=== PATIENT | female | born 1975 | race Caucasian/White ===

== ENCOUNTER 2020-09-12 13:56 | Outpatient (REF) | payer OTHER, SELFPAY ==
--- NOTE | 2020-09-12 14:04 | MM_ITS ---
EXAMINATION: MM DIAGNOSTIC DIGITAL BREAST TOMOSYNTHESIS, BILATERAL US DIAGNOSTIC ULTRASOUND BREAST, LEFT CLINICAL INFORMATION: Palpable area of concern noted by patient upper left breast. Due for yearly. No known family history breast cancer. The lifetime risk of breast cancer based on the Tyrer-Cuzick Model is 8%. COMPARISON: Mammography: 05/18/2017, 04/10/2016 TECHNIQUE: Digital breast tomosynthesis is performed in both the craniocaudal and mediolateral oblique views along with computer-aided detection (CAD). Synthesized 2D images are generated from the tomosynthesis. Additional views are obtained: Exaggerated left CC, magnification left CC, magnification right CC x2, bilateral magnification ML. Ultrasound left breast is targeted to the area of clinical concern upper breast. Grayscale imaging and color Doppler are performed without and with harmonics. FINDINGS: The breasts are heterogeneously dense, which may obscure small masses (ACR BI-RADS breast composition Category c). There is subtle increased attenuation upper left breast at site of palpable concern corresponding to cyst on subsequent targeted left breast ultrasound today. Neither breast shows architectural abnormality or significant mass. There are some scattered punctate round calcifications upper outer left breast and mid inner right breast. No focal suspicious grouping or ductal distribution or pleomorphic types. Ultrasound left breast demonstrates simple cyst at site of palpable concern 1:00 position 6 cm from nipple measuring 2.0 x 1.8 x 1.4 cm. Cyst is anechoic and shows circumscribed margins and increased through-transmission of sound. No associated color flow. No other cystic or solid mass or architectural abnormality in the targeted area. Results are discussed with the patient at time of visit. MM/MM tomosynthesis diagnostic BI IMPRESSION: 1. Simple cyst 2 cm in greatest dimension corresponding to the site of palpable concern. 2. Benign calcifications upper outer left breast and central inner right breast. ASSESSMENT: BI-RADS 2: Benign RECOMMENDATION: Routine annual mammography screening. This patient's information was entered into a reminder system with a target due date for their next mammogram.
== END 2020-09-12 13:57 | disposition home or self-care (01) ==
LOC: HO.MAMMO 13:56
PROVIDERS: Visit Provider Internal Medicine
DX: N63.20 Unspecified lump in the left breast, unspecified quadrant (principal)
CPT/HCPCS: 76642; 77062; 77066

== ENCOUNTER 2021-09-25 11:17 | Outpatient (REF) | payer MEDICAID, SELFPAY ==
--- NOTE | ~2021-09-25 | MM_ITS ---
EXAMINATION: MM SCREENING DIGITAL BREAST TOMOSYNTHESIS, BILATERAL CLINICAL INFORMATION: Screening. Asymptomatic. The lifetime risk of breast cancer based on the Tyrer-Cuzick Model is 8%. COMPARISON: Mammography: 09/12/2020, 05/18/2017, 04/10/2016; targeted left breast ultrasound 09/12/2020 TECHNIQUE: Digital breast tomosynthesis is performed in both the craniocaudal and mediolateral oblique views along with computer-aided detection (CAD). Synthesized 2D images are generated from the tomosynthesis. FINDINGS: The breasts are heterogeneously dense, which may obscure small masses (ACR BI-RADS breast composition Category c). There are no significant masses, abnormal calcifications, or other abnormalities. The cyst previously noted upper outer quadrant left breast is no longer clearly visible. No developing density. The skin contours are smooth. MM/MM tomosynthesis screening BI IMPRESSION: No mammographic evidence of malignancy. ASSESSMENT: BI-RADS 2: Benign RECOMMENDATION: Routine annual mammography screening. This patient's information was entered into a reminder system with a target due date for their next mammogram.
== END 2021-09-25 11:18 | disposition home or self-care (01) ==
LOC: HO.MAMMO 11:17
PROVIDERS: Visit Provider Internal Medicine
DX: Z12.31 Encounter for screening mammogram for malignant neoplasm of breast (principal)
CPT/HCPCS: 77063; 77067

== ENCOUNTER 2022-10-09 07:55 | Outpatient (REF) | payer MEDICAID, SELFPAY ==
--- NOTE | ~2022-10-09 | MM_ITS ---
EXAMINATION: MM SCREENING DIGITAL BREAST TOMOSYNTHESIS, BILATERAL CLINICAL INFORMATION: Screening. Asymptomatic. The lifetime risk of breast cancer based on the Tyrer-Cuzick Model is 7%. COMPARISON: Mammography: 09/25/2021, 09/12/2020, 05/18/2017; targeted left breast ultrasound 09/12/2020 TECHNIQUE: Digital breast tomosynthesis is performed in both the craniocaudal and mediolateral oblique views along with computer-aided detection (CAD). Synthesized 2D images are generated from the tomosynthesis. FINDINGS: The breasts are heterogeneously dense, which may obscure small masses (ACR BI-RADS breast composition Category c). There are no significant masses, abnormal calcifications, or other abnormalities. Parenchymal pattern is similar to prior exam. The axilla and skin contours are unremarkable. No significant changes. MM/MM tomosynthesis screening BI IMPRESSION: No mammographic evidence of malignancy. ASSESSMENT: BI-RADS 1: Negative RECOMMENDATION: Routine annual mammography screening. This patient's information was entered into a reminder system with a target due date for their next mammogram.
== END 2022-10-09 07:56 | disposition home or self-care (01) ==
LOC: HO.MAMMO 07:55
PROVIDERS: PCP Internal Medicine; Visit Provider Internal Medicine
DX: Z12.31 Encounter for screening mammogram for malignant neoplasm of breast (principal)
CPT/HCPCS: 77063; 77067

== ENCOUNTER 2023-09-16 09:29 | Outpatient (REF) | payer MEDICAID, SELFPAY ==
[2023-09-16 15:37] LABS: Alanine Aminotransferase 24 U/L (0-31); Albumin Level 4.3 g/dL (3.5-5.0); Alkaline Phosphatase 94 U/L (39-117); Anion Gap 13 (12-20); Aspartate Amino Transferase 29 U/L (5-31); Bilirubin Total 0.7 mg/dL (0.0-1.0); Blood Urea Nitrogen 8 mg/dL (9-16); Calcium 10.2 mg/dL (8.4-10.2); Carbon Dioxide 28 mmol/L (22-29); Chloride 104 mmol/L (96-108); Cholesterol 193 mg/dL (<200); Estimated Glomerular Filt Rate > 60; Glucose Random 83 mg/dL (60-115); HDL Cholesterol 47 mg/dL (>40); LDL Cholesterol Calculated 119 mg/dL (<100); Potassium 3.6 mmol/L (3.3-5.1); Sodium 141 mmol/L (135-145); Total Protein 8.1 g/dL (6.5-8.0); Triglycerides 137 mg/dL (<150)
== END 2023-09-16 09:30 | disposition home or self-care (01) ==
LOC: HO.CHCLDS 09:29
PROVIDERS: Visit Provider Internal Medicine
DX: I11.0 Hypertensive heart disease with heart failure (principal)
CPT/HCPCS: 36415; 80053; 80061

== ENCOUNTER 2023-10-15 07:38 | Outpatient (REF) | payer MEDICAID, SELFPAY | END 2023-10-15 07:39 | disposition home or self-care (01) | LOC: HO.MAMMO 07:38 | PROVIDERS: PCP Internal Medicine; Visit Provider Internal Medicine | DX: Z12.31 Encounter for screening mammogram for malignant neoplasm of breast (principal) | CPT/HCPCS: 77063; 77067 ==

== ENCOUNTER → 2023-10-15 07:45 | Outpatient (BNV) | payer MEDICAID, SELFPAY | PROVIDERS: PCP Internal Medicine; Visit Provider Radiology Diagnostic Radiology | DX: Z12.31 Encounter for screening mammogram for malignant neoplasm of breast (principal) | CPT/HCPCS: 77063; 77067 ==

== ENCOUNTER 2024-03-12 16:24 | Outpatient (REF) | payer MEDICAID, SELFPAY ==
[2024-03-12 20:42] LABS: Influenza A PCR POSITIVE (Negative); Influenza B PCR NEGATIVE (Negative); Resp Syncy Virus RNA Qual PCR NEGATIVE (Negative); SARS COV2 PCR INHOUSE NEGATIVE (Negative)
== END 2024-03-12 16:25 | disposition home or self-care (01) ==
LOC: HO.CHCLNP 16:24
PROVIDERS: Visit Provider Family Medicine
DX: R05.9 Cough, unspecified (principal); R52 Pain, unspecified
CPT/HCPCS: 0241U

== ENCOUNTER 2024-07-03 09:44 | Outpatient (REF) | payer MEDICAID, SELFPAY ==
[2024-07-03 14:28] LABS: MANUAL DIFF FLAG NO
[2024-07-03 14:37] LABS: Basophils Percent Auto 0.5 % (0-2); Eosinophils Absolute Auto 0.1 X10*3/uL (0.0-0.4); Eosinophils Percent Auto 1.4 % (0-4); Hematocrit 39.1 % (37.0-47.0); Hemoglobin 13.2 g/dl (12.0-16.0); Imm Gran Abs Auto 0.01 X10*3/uL (0.00-0.03); Imm Gran Pct Auto 0.2 % (0.0-0.4); Lymphocytes Absolute Auto 1.7 X10*3/uL (1.2-4.9); Lymphocytes Percent Auto 40.5 % (20-40); Mean Corpuscular HGB Conc 33.8 g/dl (31.0-35.0); Mean Corpuscular Hemoglobin 30.8 pg (27.0-33.0); Mean Corpuscular Volume 91.1 fL (80.0-98.0); Mean Platelet Volume 10.1 fL (9.4-12.3); Monocytes Absolute Auto 0.4 X10*3/uL (0.1-1.2); Monocytes Percent Auto 9.2 % (2-11); Neutrophils Percent Auto 48.2 % (45-73); Platelet Count 304 X10*3/uL (160-400); Red Blood Count 4.29 X10*6/uL (4.20-5.50); Red Cell Distribution Width 12.6 % (11.0-16.0); White Blood Count 4.2 X10*3/uL (4.8-10.8)
[2024-07-03 14:55] LABS: Anion Gap 13 (12-20); Blood Urea Nitrogen 10 mg/dL (9-16); Calcium 10.6 mg/dL (8.4-10.2); Carbon Dioxide 30 mmol/L (22-29); Chloride 102 mmol/L (96-108); Estimated Glomerular Filt Rate > 60; Glucose Random 83 mg/dL (60-115); Sodium 142 mmol/L (135-145)
[2024-07-03 15:51] LABS: Bacterial Vaginosis PCR POSITIVE (Negative); Candida Group PCR NOT DETECTED (Not Detect); Candida glab krusei PCR NOT DETECTED (Not Detect); Trichomonas vaginalis PCR NOT DETECTED (Not Detect)
== END 2024-07-03 09:45 | disposition home or self-care (01) ==
LOC: HO.CHCLDS 09:44
PROVIDERS: Internal Medicine; Visit Provider Family Medicine
DX: N89.8 Other specified noninflammatory disorders of vagina (principal); R52 Pain, unspecified
CPT/HCPCS: 0352U; 36415; 80048; 84443; 85025

== ENCOUNTER 2024-07-27 08:53 | Outpatient (REF) | payer MEDICAID, SELFPAY ==
[2024-07-27 15:30] LABS: Anion Gap 12 (12-20); Blood Urea Nitrogen 14 mg/dL (9-16); Calcium 10.4 mg/dL (8.4-10.2); Carbon Dioxide 29 mmol/L (22-29); Chloride 106 mmol/L (96-108); Estimated Glomerular Filt Rate > 60; Glucose Random 80 mg/dL (60-115); Magnesium 1.7 mg/dL (1.6-2.6); Potassium 3.4 mmol/L (3.3-5.1); Sodium 144 mmol/L (135-145)
== END 2024-07-27 08:54 | disposition home or self-care (01) ==
LOC: HO.CHCLDS 08:53
PROVIDERS: Visit Provider Family Medicine
DX: E87.6 Hypokalemia (principal)
CPT/HCPCS: 36415; 80048; 83735

== ENCOUNTER 2024-10-20 07:54 | Outpatient (REF) | payer OTHER, SELFPAY ==
--- NOTE | ~2024-10-20 | MM_ITS ---
EXAMINATION: MM SCREENING DIGITAL BREAST TOMOSYNTHESIS, BILATERAL CLINICAL INFORMATION: Screening. Asymptomatic. COMPARISON: Mammography: Comparison is made with available priors TECHNIQUE: Digital breast mammography with tomosynthesis is performed in both the craniocaudal and mediolateral oblique views along with computer-aided detection (CAD). FINDINGS: The breasts are heterogeneously dense, which may obscure small masses (ACR BI-RADS breast composition Category c). There are no significant masses, abnormal calcifications, or other abnormalities. MM/MM tomosynthesis screening BI IMPRESSION: No mammographic evidence of malignancy. ASSESSMENT: BI-RADS BI-RADS 1 - Negative RECOMMENDATION: Routine annual mammography screening. 1 year F/U This examination should not preclude the clinical evaluation of a suspicious palpable abnormality. This patient's information was entered into a reminder system with a target due date for their next mammogram. Electronically signed by: Claudette Blackwell DO 10/25/2024 01:56 PM JONATAN
--- OUTSIDE RECORDS SUMMARY | 2024-10-24 11:39 | XMS_ITS | Continuity of Care Document ---
Author Organization [facility] Address [address] [place] [address] [address] [place] [address] Phone Care Team Providers Care Financial Accounting Manager Name Role Phone Alli CABRAL, BHASKAR, Tushar LEE Unavailable U navailable Procedures Procedure Date Offic Cons New/estab Mod 40 Mi- CT & [place] Surgical Stockings CVR Reveal Thigh High - Duplex Scan-extrem Veins; Comp- CT & [place] Advance Directives Directive Yes / No Effective Date File Name No Information Encounters Encounter Description Practice Location Reason(s) For Visit Diagnoses Date Provider Providers Copied on Encounter [facility], [address] [place] [address] [address], [id number], tel:[phone] [facility] No Information 4 Alli CABRAL RVT, RPVI Robert. [address] [place] [address] [address], [place], [place], [id number] , [place]. tel:[phone] Offic Cons New/estab Mod 40 Mi- CT & [place] [facility], [address] [place] [address] [address] Thomas [address], [id number], [place] tel:[phone] CVR [facility] Chronic venous hypertension (idiopathic) with other complications of bilateral lower extremityEssent ial (primary) hypertensionVen ous insufficiency (chronic) (peripheral)Pru ritus, unspecifiedCram p and spasmLocalized edema 4 Alli CABRAL RVT, RPVI Robert. [address] [facility], [address], [facility] , [place], [id number] , [place]. tel:[phone] Referring Provider: Levy Mantilla MD, Crystal [address], [email or web address], [address]. tel:[phone] [facility], [address] [facility] [address], [place], [id number], [place] tel:[phone] CVR - [place] Varicose veins of bilateral lower extremities with pain 4 Alli CABRAL, RVT, ROSA Finley. [address] [facility], [address], [facility], [place], [id number] , [place]. tel:[phone] Referring Provider: Levy Mantilla MD, Crystal [address], [place], [address]. tel:[phone] Family History Family Member Type Diagnosis Age At Onset No Information Payers Payer name Insurance type Covered libertarian ID Authorlucya marguerite[id number] Social History Type Description Quantity Date Captured Comments Sex Female Smoking Status No Information Chief Complaint And Reason For Visit No Information Reason For Referral Reason For Referral No Information Plan Of Treatment Date Type Action Status Goal Diet education completed Referral Ordered: Weight management: Referral to physician timeframe: 3 Months (related to Body mass index (BMI) 25.0-25.9, adult) ordered Appointment Zo Sawant BOOKED Appointment Zo Sawant BOOKED Appointment Zo Sawant BOOKED Appointment Zo Sawant BOOKED Appointment Zo Sawant BOOKED Appointment Zo Sawant BOOKED Appointment Zo Sawant BOOKED Appointment Zo Sawant BOOKED Appointment Zo Sawant BOOKED History Of Present Illness Encounter Date Complaint History Of Prese nt Illness No Information Functional Status Date Functional Assessmen t No Information Instructions Date Instruction Additional Infor mation Diet education Related to Body mass index (BMI) 25.0-25.9, adult Giving Encouragement to exercise Related to Body mass index (BMI) 25.0-25.9, adult Lifestyle education Related to B arabella mass index (BMI) 25.0-25.9, adult Patient education booklet given Related to Chronic venous hypertension (idiopathic) with other complications of bilateral lower extremity Pre and post instruc tions reviewed and provided Related to Chronic venous hypertension (idiopathic) with other complications of bilateral lower extremity Assessments Type Assessment Date No Information Patient Care Teams Name Effective Dates (start - stop) Status Members No Information
== END 2024-10-20 07:55 | disposition home or self-care (01) ==
LOC: HO.MAMMO 07:54
PROVIDERS: PCP Internal Medicine; Visit Provider Internal Medicine
DX: Z12.31 Encounter for screening mammogram for malignant neoplasm of breast (principal)
CPT/HCPCS: 77063; 77067

== ENCOUNTER → 2024-10-20 08:00 | Outpatient (BNV) | payer SELFPAY | PROVIDERS: PCP Internal Medicine; Visit Provider Internal Medicine | DX: Z12.31 Encounter for screening mammogram for malignant neoplasm of breast (principal) | CPT/HCPCS: 77063; 77067 ==

== ENCOUNTER 2025-01-01 09:34 | Outpatient (REF) | payer OTHER, SELFPAY ==
--- OUTSIDE RECORDS SUMMARY | 2025-01-01 10:19 | XMS_ITS | Encounter Summary ---
Author Organization [employer] Address [address] [place] [address] [address], [place] [address] Care Team Providers Care Employee Service Officer Name Role Phone Everardo Dixon MD Primary Care Prov ider Levy Diallo MD Unavailable [phone] Reason for Referral * Consultation (Routine) - Authorized Specialty Diagnoses / Procedures Referred By Davon quiñonez Referred To Contact Hand Surgery Diagnoses Trigger finger of right thumb Everardo Dixon MD [address] [place] [address] Phone: tel: fax: [facility] [address] [place] [address] Phone: tel: Referral ID Status Reason Start Date Expiration Date Visits Requested Visits Authorized [id number] Authorized Specialty Services Required 12/19/2024 12/19/2025 1 1 Encounter Details Date Type Department Care Team (Late st Contact Info) Description 12/19/2024 2:00 PM EST Office Visit [facility] [address] [place] [address] Everardo Dixon MD [address] [place] [address] Primary hypertension (Primary Dx); Trigger finger of right thumb Social History Tobacco Use Types Packs/Day Years Used Date Smoking Tobacco: Never Smokeless Tobacco: Never Alcohol Use Standard Drinks/Week Comments Never 0 (1 standard drink = 0.6 oz pur e alcohol) Depression Answer Date Recorded Patient Health Questionnaire-9 Score 0 02/11/2023 Housing Stability Answer Date Recorded What is your housing situation today? I have magalie corley 12/12/[address] you li ve. Do you have problems with any of the following? None of the above 12/12/2024 Food Insecurity Answer Date Recorded Within the past 12 months, y ou worried that your food would run out before you got money to buy more: Never True 12/12/2024 Within the past 12 months,th e food you bought just didn't last and you didn't have enough money to get more: Never True Transportation Answer Date Recorded In the past 12 months, has l ack of transportation kept you from medical appts, meetings, work or from getting things needed for daily living? No 12/12/2024 Utilities Answer Date Recorded In the past 12 months, has t he electric, gas, oil or water company threatened to shut off services in your home? No 12/12/2024 Depression Answer Date Recorded Patient Health Questionnaire-2 Score 0 03/06/2024 Internet Access Answer Date Recorded Internet Access Q1 Yes 12/12/2024 Internet Access Q2 Not on file 12/12/2024 Comments Unknown Sex and Gender Information Value Date Recorded Sex Assigned at Female 09/13/2022 10:17 AM EDT Legal Sex Female 10:17 AM EDT Gender Identity Female 09/13/2022 10:17 AM EDT Sexual Orientation Straight 09/13/2022 10 :17 AM EDT documented as of this encounter Last Filed Vital Signs Vital Sign Reading Time Taken Comments Blood Pressure 142/86 12/19/2024 2:22 PM EST Pulse 74 12/19/2024 2:22 PM EST Temperature 36.8 ??C (98.3 ??F) 12/19/2024 2:22 PM ES T Respiratory Rate 20 12/19/2024 2:22 PM EST Oxygen Saturation - - Inhaled Oxygen Concentration - - Weight 63 kg (139 lb) 12/19/2024 2:22 PM EST Height 157.5 cm (5' 2 ) 12/19/2024 2:22 PM EST Body Mass Index 25.42 12/19/2024 2:22 PM EST documented in this encounter Progress Notes * Everardo Devi MD - 12/19/2024 2:00 PM EST Subjective Patient ID: Zo Sawant is a 49 y.o. female who presents for No chief complaint on file.. Hypertension This is a chronic problem. Pertinent negatives include no chest pain, headaches, palpitations, peripheral edema or shortness of breath. Review of Systems Respiratory: Negative for shortness of breath. Cardiovascular: Negative for chest pain and palpitations. Neurological: Negative for headaches. Objective Physical Exam Constitutional: Appearance: Normal appearance. HENT: Right Ear: Tympanic membrane, ear canal and external ear normal. There is no impacted cerumen. Left Ear: Tympanic membrane, ear canal and external ear normal. There is no impacted cerumen. Cardiovascular: Rate and Rhythm: Normal rate and regular rhythm. Heart sounds: No murmur heard. Pulmonary: Effort: Pulmonary effort is normal. No respiratory distress. Breath sounds: No stridor. No wheezing or rhonchi. Abdominal: General: Abdomen is flat. There is no distension. Palpations: There is no mass. Tenderness: There is no abdominal tenderness. Hernia: No hernia is present. Musculoskeletal: General: Normal range of motion. Cervical back: Normal range of motion. No rigidity or tenderness. Lymphadenopathy: Cervical: No cervical adenopathy. Neurological: General: No focal deficit present. Mental Status: She is alert and oriented to person, place, and time. Psychiatric: Mood and Affect: Mood normal. Behavior: Behavior normal. Assessment/Plan Problem List Items Addressed This Visit Primary hypertension - Primary Slightly above target, told to keep bp log, keep low sodium diet, trget <140/90 Other Visit Diagnoses Trigger finger of right thumb Relevant Orders Referral to Hand Surgery documented in this encounter Miscellaneous Notes * Assessment & Plan Note - Everardo Devi MD - 12/19/2024 2:43 PM ESTAssociated Problem(s): Primary hypertension Slightly above target, told to keep bp log, keep low sodium diet, trget <140/90 documented in this encounter Plan of Treatment Upcoming Encounters Date Type Department Care Team (Late st Contact Info) Description 01/16/2025 10:15 AM EST Telemedicine [facility] [address] [place] [address] Everardo Dixon MD [address] [place] [address] Scheduled Orders Name Type Priority Associated Diagnoses Orde r Schedule CBC auto differential Lab Routine Primary hypertension Expected: 12/19/2024 (Approximate), Expires: 12/19/2025 Comprehensive Metabolic Panel Lab Routine Primary hypertension Expected: 12/19/2024 (Approximate), Expires: 12/19/2025 Lipid Panel, Standard Lab Routine Primary hypertension Expected: 12/19/2024 (Approximate), Expires: 12/19/2025 TSH W/Reflex to FT4 Lab Routine Primary hypertension Expected: 12/19/2024 (Approximate), Expires: 12/19/2025 Hemoglobin A1c Lab Routine Primary hypertension Expected: 12/19/2024 (Approximate), Expires: 12/19/2025 Scheduled Referrals Name Type Priority Associated Diagnoses Orde r Schedule Referral to Hand Surgery Outpatient Referral Routine Trigger finger of right thumb Expected: 12/19/2024 (Approximate), Expires: 12/19/2025 documented as of this encounter Visit Diagnoses Diagnosis Primary hypertension- Primary Unspecified essential hypertension Trigger finger of right thumb documented in this encounter Additional Health Concerns Assessment Noted Time PHQ-9 Depression Total Score: 0 02/12/20 23 11:13 AM EDT documented as of this encounter Care Teams Employee Service Officer Relationship Specialty Start Date End Date Everardo Dixon MD [address] [place] [address] PCP - General Internal Medicine 04/13/20 Levy Diallo MD [address] [place] [address] Referring Physician Internal Medicine 07/02/24 documented as of this encounter
--- OUTSIDE RECORDS SUMMARY | 2025-01-01 10:20 | XMS_ITS | Encounter Summary ---
Author Organization [employer] [facility] [employer] [facility] [employer] Address [address] [facility] [address] [place] [address] Care Team Providers Care Veterinary Microbiologist Name Role Phone Everardo Dixon MD Primary Care Prov ider Levy Diallo MD Unavailable [phone] Encounter Details Date Type Department Care Team (Latest Contact Info) Description 12/19/2024 Travel Social History Tobacco Use Types Packs/Day Years Used Date Smoking Tobacco: Never Smokeless Tobacco: Never Alcohol Use Standard Drinks/Week Comments Never 0 (1 standard drink = 0.6 oz pur e alcohol) Depression Answer Date Recorded Patient Health Questionnaire-9 Score 0 02/11/2023 Housing Stability Answer Date Recorded What is your housing situation today? I have magalie jory 12/12/[address] you li [...] AM EDT documented as of this encounter Plan of Treatment Upcoming Encounters Date Type Department Care Team (Late st Contact Info) Description 01/16/2025 10:15 AM EST Telemedicine [facility] [address] [place] [address] Everardo Dixon MD [address] [place] [address] documented as of this encounter Visit Diagnoses Not on filedocumented in this encounter Additional Health Concerns Assessment Noted Time PHQ-9 Depression Total Score: 0 02/12/20 23 11:13 AM EDT documented as of this encounter Care Teams Veterinary Microbiologist Relationship Specialty Start Date End Date Everardo Dixon MD [address] [place] [address] PCP - General Internal Medicine 04/13/20 Levy Diallo MD [address] [place] [address] Referring Physician Internal Medicine 07/02/24 documented as of this encounter
--- OUTSIDE RECORDS SUMMARY | 2025-01-01 10:20 | XMS_ITS | Continuity of Care Document ---
Author Organization [facility] Address [address] [place] [address] Dr [address] [place] [address] Phone Care Team Providers Care Auto Tire Recapper Name Role Phone Alli CABRAL, BHASKAR, Tushar LEE Unavailable U navailable Procedures Procedure Date Offic/outpt E&m Estab 5 Min Trial- Telem edicine CT & [place] Offic Cons New/estab Mod 40 Mi- CT & [place] Surgical Stockings CVR Reveal Thigh High - Duplex Scan-extrem Veins; Comp- CT & [place] Advance Directives Directive Yes / No Effective Date File Name No Information Encounters Encounter Description Practice Location Reason(s) For Visit Diagnoses Date Provider Providers Copied on Encounter Offic/outpt E&m Estab 5 Min Trial- Telemedicine [place] & [place] [facility], [address] [place] [address] Dr [address], [place], [id number], tel:[phone] CVR - [place] [facility] [place] Chronic venous hypertension (idiopathic) with other complications of bilateral lower extremityCram p and spasmPruritus , unspecifiedEs sential (primary) hypertension 5 Alil CABRAL, BHASKAR, ROSA Finley. [address] [facility], [address], [place], [place], [id number] , [place]. tel:[phone] Referring Provider: Everardo Devi, [address] , [place], [address]. tel:[phone] Offic Cons New/estab Mod 40 Mi- CT & [place] [facility], [address] [place] [address] [address], [place], [id number], tel:[phone] [facility] Chronic venous hypertension (idiopathic) with other complications of bilateral lower extremityEsse ntial (primary) hypertensionV enous insufficiency (chronic) (peripheral)P ruritus, unspecifiedCr amp and spasmLocalize d edema 4 Alli CABRAL RVT, ROSA Finley. [address] [place] [address], [place], [place], [id number] , [place]. tel:[phone] Referring Provider: Levy Mantilla MD, Crystal [address], [facility] [place], [address]. tel:[phone] [facility], [address] [place] [address] [address], [place], [id number], tel:[phone] [facility] Varicose veins of bilateral lower extremities with pain 4 Alli CABRAL RVT, ROSA Finley. [address] [place] [address], [place], [place], [id number] , [place]. [phone] Referring Provider: Levy Mantilla MD, Crystal [address], [place], [address]. tel:[phone] Family History Family Member Type Diagnosis Age At Onset No Information Payers Payer name Insurance type Covered green party ID Authorlucya marguerite(s) [facility] [id number] Social History Type Description Quantity Date Captured Comments Alcohol Use Details Unknown Caffeine Use Details Unknown Tobacco Use Status Current non-smoker Smoking Status Never Smoker Non-Smoking Tobacco Use Details : No Details Available : No Details Available Sex Female Vital Signs Date / Time: Height Weight BMI Pulse Rate Blood Pressure Temperature Respiratory Rate Body Surface Area Head Circumference Head Circ. Percentile Wt./Boogie. Percentile BMI percentile Pulse Ox Inhaled Ox 68.040 kg (150.00 lbs) 25.8 0 kg/m eter (2) Chief Complaint And Reason For Visit No Information Reason For Referral Reason For Referral No Information Plan Of Treatment Date Type Action Status Goal Diet education completed Referral Ordered: Weight management: Referral to physician timeframe: 3 Months (related to Body mass index (BMI) 25.0-25.9, adult) ordered Appointment Sawant, Zo BOOKED Appointment Sawant, Zo BOOKED Appointment Sawant, Zo BOOKED Appointment Sawant, Zo BOOKED Appointment Sawant, Zo BOOKED Appointment Sawant, Zo BOOKED Appointment Sawant, Zo BOOKED Appointment Sawant, Zo BOOKED History Of Present Illness Encounter Date Complaint History Of Prese nt Illness No Information Functional Status Date Functional Assessmen t No Information Instructions Date Instruction Additional Infor dolores Patient education booklet given Related to Chronic venous hypertension (idiopathic) with other complications of bilateral lower extremity Pre and post instruc tions reviewed and provided Related to Chronic venous hypertension (idiopathic) with other complications of bilateral lower extremity Diet education Related to Body mass index [...]
--- OUTSIDE RECORDS SUMMARY | 2025-01-01 10:20 | XMS_ITS | Encounter Summary ---
Author Organization [employer] Address [address] [facility] [address] [place] [address] Care Team Providers Care Manager Trust Name Role Phone Everardo Dixon MD Primary Care Prov ider Levy Diallo MD Unavailable [phone] Reason for Visit * Reason Comments Pre-visit Planning SDOH negative, Tobac co screening negative Encounter Details Date Type Department Care Team ([facility] st Contact Info) Description 12/12/2024 Patient Outreach [facility] MED & PEDS [address] [place], [place] [phone] Everardo Dixon MD [address] [place] [address] Pre-visit Planning (SDOH negative, Tobacco screening negative) Social History Tobacco Use Types Packs/Day Years [...] AM EDT documented as of this encounter Progress Notes * Tiffanie Renner - 12/12/2024 3:39 PM EST CC Tiffanie Pulido placed successful outbound call to patient for pre-visit planning. Patient name and confirmed. Patient confirms appt date and time, and has transportation arrangements. Biggest concern for appointment at this time is patient would like to check for menopause. Patient states she's been overly sensitive and having heat flashes. Appropriate screenings completed in anticipation of appointment. documented in this encounter Plan of Treatment Upcoming Encounters Date Type Department Care Team (Late st Contact Info) Description 01/16/2025 10:15 AM EST Telemedicine [facility] MED & PEDS [address] [place] [address] Everardo Dixon MD [address] [place] [address] documented as of this encounter Visit Diagnoses Not on filedocumented in this encounter Additional Health Concerns Assessment Noted Time PHQ-9 Depression Total Score: 0 02/12/20 23 11:13 AM EDT documented as of this encounter Care Teams Manager Trust Relationship Specialty Start Date End Date Everardo Dixon MD [address] [place] [address] PCP - General Internal Medicine 04/13/20 Levy Diallo MD [address] [place], [place] [address]clara [place] [address] Referring Physician Internal Medicine 07/02/24 documented as of this encounter
--- OUTSIDE RECORDS SUMMARY | 2025-01-01 10:20 | XMS_ITS | Clinical Summary ---
Author Organization [facility] ity Address [address] [place] [address] Care Team Providers Care Water Systems Designer Name Role Phone Levy Lema MD Primary Care Provi lola Social History Tobacco Use Types Packs/Day Years Used Date Smoking Tobacco: Never Assessed Comments Unknown Sex and Gender Information Value Date Recorded Sex Assigned at Not on file Legal Sex Female 9:00 AM EST Gender Identity Not on file Sexual Orientation Not on file Plan of Treatment Health Maintenance Due Date Last Done Comments Breast Cancer Screening 1973 DTaP,Tdap,and Td Vaccines (1 - Tdap) 1992 Hepatitis B Vaccines (1 of 3 - 19+ 3-dose series) 1992 Cervical Cancer Screening: P ap Smear 1994 Pneumococcal Vaccine: 50+ Ye ars (1 of 1 - PCV) 2023 Zoster Vaccines (1 of 2) 2023 COVID-19 Vaccine ( - 2023-2 5 season) 2024 Influenza Vaccine (#1) 2024 HIB Vaccines Aged Out No longer eligi ble based on patient's age to complete this topic HPV Vaccines Aged Out No longer eligi ble based on patient's age to complete this topic Hepatitis A Vaccines Aged Out No long er eligible based on patient's age to complete this topic IPV Vaccines Aged Out No longer eligi ble based on patient's age to complete this topic MMR Vaccines Aged Out No longer eligi ble based on patient's age to complete this topic Meningococcal ACWY Vaccine Aged Out N o longer eligible based on patient's age to complete this topic Meningococcal B Vacine Aged Out No lo nger eligible based on patient's age to complete this topic Pneumococcal Vaccine: Pediat rics (0 to 5 Years) and At-Risk Patients (6 to 64 Years) Aged Out No longer eligible b ased on patient's age to complete this topic RSV Immunization Patients Un lola 20 months Aged Out No longer eligible b ased on patient's age to complete this topic Varicella Vaccines Aged Out No longer eligible based on patient's age to complete this topic Care Teams Water Systems Designer Relationship Specialty Start Date End Date Levy Lema MD [address] [place] [address] [facility] [place] [address] PCP - General Internal Medicine 03/09/21
--- OUTSIDE RECORDS SUMMARY | 2025-01-01 10:20 | XMS_ITS | Clinical Summary ---
Author Organization [employer] Address [address] [facility] 7[address] [place] [address] Care Team Providers Care Freelance Writer Name Role Phone Everardo Dixon MD Primary Care Prov ider Levy Diallo MD Unavailable Allergies No known active allergies Medications Blood Pressure kit Active lisinopril-hydroC HLOROthiazide 20-25 MG tabletIndications :Primary hypertension Take 1 tablet by mouth Once per day. 90 tablet 3 03/06/2024 03/06/20 25 Active estradiol (Climara) 0.05 MG/24HR Place 1 patch on the skin 1 (one) time per week. 4 patch 11 07/02/2024 07/02/20 25 Active Active Problems Problem Noted Date Diagnosed Date Vaginal discharge 07/02/2024 Assessment & Plan (07/02/2024 10:58 AM EDT): Will send BV panel, no pelvic pain, no fever/chills Hot flash, menopausal 07/02/2024 Assessment & Plan (07/02/2024 11:01 AM EDT): Will start on estradiol patches, risk vs benefits discussed Cough 03/12/2024 Assessment & Plan (03/12/2024 4:23 PM EDT): Ordering lab work for further evaluation of symptoms. Negative for Flu and Covid. Screening for colon cancer 03/24/2023 Assessment & Plan (03/24/2023 9:36 AM EDT): Done 06/28/22 due in 10 years Annual physical exam 03/24/2023 Gastroesophageal reflux disease without esophagi tis 03/24/2023 Assessment & Plan (03/24/2023 10:13 AM EDT): Will start on omeprazole, lifestyle modification reviewed Mass of axilla 09/12/2014 Primary hypertension 09/12/2014 Assessment & Plan (12/19/2024 2:43 PM EST): Slightly above target, told to keep bp log, keep low sodium diet, trget <140/90 Assessment & Plan (07/02/2024 10:57 AM EDT): Controlled, continue low sodium diet and exercise as tolerated, continue same treatment Assessment & Plan (05/31/2024 8:22 AM EDT): Controlled, continue current treatment, continue low sodium diet and exercise as tolerated, follow up in 4 months Assessment & Plan (09/14/2023 2:27 PM EDT): Controlled, has been ranging below 140/90, reinforced low sodium diet, follow up in 3 months, new labs will be ordered for guidance Assessment & Plan (06/17/2023 9:34 AM EDT): Controlled, patient refers not going above 130/90, encouraged a low sodium diet and exercise as tolerated, labs reviewed, will follow up in 3 months Assessment & Plan (03/24/2023 10:12 AM EDT): Controlled, reinforced low sodium diet and exercise as tolerated, new blood work will be sent Assessment & Plan (10/27/2022 11:51 AM EST): Today patient reported her bp as 130/70, refers is bleow 140/90, reinforced low sodium diet and exercise, continue daily bp monitoring Mental health problem 12/11/2013 Back problem 12/11/2013 Anemia 12/11/2013 Vaginitis 10/03/2012 Encounters Date Type Department Care Team Description 12/19/2024 2:00 PM EST Office Visit [facility] MED & PEDS [address] [place] [address] Everardo Dixon MD Primary hypertension (Primary Dx); Trigger finger of right thumb 12/19/2024 Travel 12/12/2024 Patient Outreach [facility] MED & PEDS [address] [place] [address] Everardo Dixon MD Pre-visit Planning (SDOH negative, Tobacco screening negative) 10/20/2024 Orders Only [facility] MED & PEDS [address] [place] [address] Everardo Dixon MD from Last 3 Months Immunizations Name Administration Dates Next Due Influenza Injectable Quadriv alant Preservative Free IIV4 MDCK 10/02/2020 Influenza injectable quadriv alent IIV4 with preservative 09/22/2015 Influenza injectable quadriv alent preservative free 09/24/2022,08/25/2021,12/04/2019,2016 Influenza, IIV3, injectable 08/22/2014 Influenza, Split (incl. aida fied surface antigen) 09/27/2012 Pfizer Covid-19 Vaccine 12+ rea-sucrose ([place] Cap) 01/02/2022 Tdap 03/24/2023,09/12/2014 Family History Medical History Relation Name Comments Hypertension Mother Relation Name Status Comments Mother Social History Tobacco Use Types Packs/Day Years Used Date Smoking Tobacco: Never Smokeless Tobacco: Never Tobacco Cessation:Counseling Given: Not Answered Alcohol Use Standard Drinks/Week Comments Never 0 (1 standard drink = 0.6 oz pur e alcohol) Depression Answer Date Recorded Patient Health Questionnaire-9 Score 0 02/11/2023 Housing Stability Answer Date Recorded What is your housing situation today? I have magalie sing 12/12/[address] you li [...] Orientation Straight 09/13/2022 10 :17 AM EDT Last Filed Vital Signs Vital Sign Reading Time Taken Comments Blood Pressure 142/86 12/19/2024 2:22 PM EST Pulse 74 12/19/2024 2:22 PM EST Temperature 36.8 ??C (98.3 ??F) 12/19/2024 2:22 PM ES T Respiratory Rate 20 12/19/2024 2:22 PM EST Oxygen Saturation 98% 03/12/2024 3:28 PM EDT Inhaled Oxygen Concentration - - Weight 63 kg (139 lb) 12/19/2024 2:22 PM EST Height 157.5 cm (5' 2 ) 12/19/2024 2:22 PM EST Body Mass Index 25.42 12/19/2024 2:22 PM EST Plan of Treatment Upcoming Encounters Date Type Department Care Team (Late st Contact Info) Description 01/16/2025 10:15 AM EST Telemedicine [facility] MED & PEDS [address] [place] [address] Everardo Dixon MD [address] [place] [address] Health Maintenance Due Date Last Done Comments CT Colonography 1973 FIT DNA/Cologuard 1973 FIT 1973 FOBT 1973 Sigmoidoscopy 1973 Alcohol/Substance Use Screening 1985 Family Planning (PISQ) 1988 Hepatitis B Vaccines (1 of 3 - 19+ 3-dose series) 1992 Pneumococcal Vaccine: 50+ Years (1 of 1 - PCV) 2023 Zoster Vaccines (1 of 2) 2023 COVID-19 Vaccine (3 - season) 2024 01/02/2022, 04/09/2021 Influenza Vaccine (#1) 2024 , 08/25/2021, 10/02/2020, Additional history exists Depression Screening 03/06/2025 03/06/2024, 02/12/20 SDOH Screening 12/12/2025 12/12/2024 Tobacco Screening 12/19/2025 12/19/2024 Cervical Cancer Screening 04/07/2026 HPV/Cotest 04/07/2026 04/07/2021 Pap Smear 04/07/2026 04/07/2021 Mammogram 10/20/2026 10/20/2024, 12/0 12/2022, 10/09/2022, Additional history exists Lipid Panel 09/16/2028 09/16/2023, 0511/2022, 06/04/2022, Additional history exists Colonoscopy 06/28/2032 Colorectal Cancer Screening 06/28/2032 DTaP/Tdap/Td Vaccines (3 - Td or Tdap) 03/24/2033 03/24/2023, 09/12/2014 RSV Patients and Patients Aged 60 years or older (1 - 1-dose 75+ series) 2048 HIV Screening Completed 12/04/2019 Hepatitis C Screening Completed 03/24/2023, 020 HIB Vaccines Aged Out No longer eligi [...] patient's age to complete this topic Meningococcal Vaccine Aged Out No scotty rober eligible based on patient's age to complete this topic RSV under 20 months Aged Out No longe r eligible based on patient's age to complete this topic Rotavirus Vaccines Aged Out No longer eligible based on patient's age to complete this topic Procedures Procedure Name Priority Date/Time Associated Diagnosis Comments BI MAMMOGRAM SCREENING TOMOSYNTHESIS BILATERAL Routine 10/20/2024 7:58 AM EST LIPID PANEL, STANDARD Routine 09/16/2023 9:29 AM EDT Primary hypertension HEPATITIS C AB W/REFL TO HCV RNA, QN, PCR Routine 03/24/2023 9:54 AM EDT Primary hypertension HPV MRNA E6/E7 Routine 04/07/2021 10:38 AM EDT THINPREP PAP Routine 04/07/2021 10:38 AM EDT ZZZ HISTORICAL HIV AB/AG Routine 12/04/2019 2:49 PM EST from Last 3 Months or Most Recently Relevant to Health Maintenance Results * BI Mammogram Screening Tomosynthesis Bilateral (10/20/2024 7:58 AM EST) Anatomical Region Laterality Modality Breast Bilateral Mammography 10/20/2024 7:58 AM EST Narrative 10/25/2024 1:58 PM EST ? [facility] ? [address] ?[place] [address] ? Mammography Report ? Signed ? Patient: Jese,Zo ?MR#: [id number] ? : 1975 ?Acct:[id number] ? Age/Sex: 49 / F ?ADM Date: 12/07/24 ? Loc: HO.MAMMO ? Attending Dr: Everardo Devi MD ? Ordering Physician: Everardo Dixon MD ?Res ?? ults: 1Negative ? Date of Service: 10/20/24 ?Follow Up: 1 Year From Orig ?? inal Mammogram ? Procedure(s): MM tomosynthesis screening BI ?? Accession Number(s): [id number] ? cc: Everardo Dixon MD ? EXAMINATION: ?? MM SCREENING DIGITAL BREAST TOMOSYNTHESIS, BILATERAL ? CLINICAL INFORMATION: ? Screening. Asymptomatic. ? COMPARISON: ?? Mammography: Comparison is made with available priors ? TECHNIQUE: ?? Digital breast mammography with tomosynthesis is performed in both the ?? craniocaudal and mediolateral oblique views along with computer-aided ?? detection (CAD). ? FINDINGS: ?? The breasts are heterogeneously dense, which may obscure small masses ?? (ACR BI-RADS breast composition Category c). ? There are no significant masses, abnormal calcifications, or other ?? abnormalities. ? MM/MM tomosynthesis screening BI ?? IMPRESSION: ?? No mammographic evidence of malignancy. ? ASSESSMENT: ? BI-RADS BI-RADS 1 - Negative ? RECOMMENDATION: ?? Routine annual mammography screening. ? 1 year F/U ? This examination should not preclude the clinical evaluation of a ?? suspicious palpable abnormality. ? This patient's information was entered into a reminder system with a ?? target due date for their next mammogram. ? Electronically signed by: ??Claduette Blackwell DO ??10/25/2024 01:56 PM EST ?? RP ? Dictated By: ?Claudette Blackwell DO ? Signed By: ?<Electronically signed by Claudette Blackwell, DO in OV> ? 10/25/24 1356 ? DD/ 0758 ? TD/TT: 10/20/24 0813 ? Gelatin Plant Supervisor: ? Procedure Note Donotuseinterpreter, Image - 10/26/2024 [facility] [address] [place] [address] Mammography Report Signed Patient: Humza Sawant#: [id number] : 1975Acct:[id number] Age/Sex: 49 / FADM Date: 10/20/24 Loc: HO.MAMMO Attending Dr: Everardo Devi MD Ordering Physician: Everardo Dixon ults: 1Negative Date of Service: 10/20/24Follow Up: 1 Year From Orig inal Mammogram Procedure(s): MM tomosynthesis screening BI Accession Number(s): [id number] cc: Everardo Dixon MD EXAMINATION: MM SCREENING DIGITAL BREAST TOMOSYNTHESIS, BILATERAL CLINICAL INFORMATION: Screening. Asymptomatic. COMPARISON: Mammography: Comparison is made with available priors TECHNIQUE: Digital breast mammography with tomosynthesis is performed in both the craniocaudal and mediolateral oblique views along with computer-aided detection (CAD). FINDINGS: The breasts are heterogeneously dense, which may obscure small masses (ACR BI-RADS breast composition Category c). There are no significant masses, abnormal calcifications, or other abnormalities. MM/MM tomosynthesis screening BI IMPRESSION: No mammographic evidence of malignancy. ASSESSMENT: BI-RADS BI-RADS 1 - Negative RECOMMENDATION: Routine annual mammography screening. 1 year F/U This examination should not preclude the clinical evaluation of a suspicious palpable abnormality. This patient's information was entered into a reminder system with a target due date for their next mammogram. Electronically signed by: Claudette Blackwell DO 10/25/2024 01:56 PM [facility] Dictated By: Claudette Blackwell DO Signed By: <Electronically signed by Claudette Blackwell DO in OV> 10/25/24 1356 DD/ 0758 TD/TT: 10/20/24 0813 Gelatin Plant Supervisor: us Everardo Devi MD IMG BI PROCEDURES Edited Result - Final * (ABNORMAL) Lipid Panel, Standard (09/16/2023 9:29 AM EDT) Triglycerides 137 <150 mg/dL [facility] Comment:Desirable Triglyceri de: less than 150 mg/dLBorderline High Triglyceride 150-199 mg/dLHigh Triglyceride: 200-499 mg/dLVery High Triglyceride: greater than or equal to 5OO mg/dL Cholesterol 193 <200 mg/dL [facility] Comment:Desirable Cholestero l: less than 200 mg/dLBorderline High Cholesterol: 200-239 mg/dLHigh Cholesterol: greater than 239 mg/dL LDL Cholesterol Calculated 119(H) <100 mg/dL [facility] Comment:Desirable LDL: less than 100 mg/dLNear Optimal/Above Optimal LDL: 110- 129 mg/dLBorderline High LDL: 130-159 mg/dLHigh LDL: 160-189 mg/dLVery High LDL: greater than or equal to 190 mg/dL HDL Cholesterol 47 >40 mg/dL [facility] Comment:Desirable HDL: great er than 40 mg/dL Note: This HDL assay may give artificially low results in patients with liver disease. Blood Venous blood specimen / Unknown 09/16/2023 9:29 AM EDT 09/16/2023 2:30 PM EDT us Everardo Devi MD LAB BLOOD ORDERABL ES Final Result [facility] [address] [place] [phone] * Hepatitis C Antibody with Reflex to HCV, RNA, Quantitative, Real-Time PCR (03/24/2023 9:54 AM EDT) Hepatitis C Antibody NON-REACT STEVEN NON-REACT STEVEN [facility] [place] WritePatht Index 0.18 <1.00 [facility] [place] [facility] Comment: HCV antibody was non-reactive. There is no laboratory evidence of HCV infection. In most cases, no further action is required. However, if recent HCV exposure is suspected, a test for HCV RNA (test code 39387) is suggested. For additional information please refer to http://education.quitchen.Phone2Action/faq/NOT01i1 (This link is being provided for informational/ educational purposes only.) Blood Venous blood specimen / Unknown 03/24/2023 9:54 AM EDT 03/24/2023 9:55 AM EDT Narrative [facility] - 03/25/2023 2:47 AM EDT FASTING:YES FASTING: YES Everardo Devi MD LAB BLOOD ORDERABL ES Final Result [facility] [address] [place] [address], [place] [address] [facility] [address] [place] [phone] * THINPREP PAP (04/07/2021 10:38 AM EDT) Clinical Information: None given [facility] COMMENT SEE COMMENT [facility] Comment: EXPLANATORY NOTE: ? The Pap is a screening test for cervical cancer. It is ?? not a diagnostic test and is subject to false negative ?? and false positive results. It is most reliable when a ?? satisfactory sample, regularly obtained, is submitted ?? with relevant clinical findings and history, and when ?? the Pap result is evaluated along with historic and ?? current clinical information. ?? Shank Cutter : SEE COMMENT [facility] Comment: DMM, CT(ASCP) CT screening location: [address] ??[id number] Interpretation/R esult: Negative for intraepithelial lesion or malignancy. [facility] LMP: NONE GIVEN [facility] Prev. BX: NONE GIVEN [facility] Prev. PAP: NONE GIVEN [facility] SOURCE: None given [facility] Statement Of Adequacy: SEE COMMENT [facility] Comment: Satisfactory for evaluation. Endocervical/transformation zone component present. Age and/or menstrual status not provided 04/07/2021 10:3 8 AM EDT us [facility] PATHOLOGY ORDERABLES Final Result Performing Organization Address [facility] de Phone Number [facility] [address] * HPV mRNA E6/E7 (04/07/2021 10:38 AM EDT) Pathologist [facility] HPV nRNA E6/E7 Not Detected Not Detected [facility] Comment: Methodology: Sport Intern-Mediated Amplification This assay detects E6/E7 viral messenger RNA (mRNA) from 14 high-risk HPV types (16,18,31,33,35,39,45,51,52,56,58,59,66,68). ? The analytical performance characteristics of this assay have been determined by [facility]. The modifications have not been cleared or approved by the FDA. This assay has been validated pursuant to the CLIA regulations and is used for clinical purposes. ?? For additional information, please refer to http://education.Vox Media/faq/WVS968u4 (This link if provided for information/ educational purposes only.) 04/07/2021 10:[address] [facility] BLOOD ORDERABLES Charu l Result Performing Organization Address [facility] de Phone Number [facility] [address] * HIV AB/AG (12/04/2019 2:49 PM EST) [facility] HIV AG/AB NONREACTIVE NR [facility] Comment: HIV-1 p24 Ag and/or HIV-1/HIV-2 Ab not detected. ?? A test result that is nonreactive does not exclude the possibility of exposure to or infection with HIV-1 and/or HIV-2. Nonreactive results in this assay for individuals with prior exposure to HIV-1 and/or HIV-2 may be due to antigen and antibody levels that are below the limit of detection of this assay. ?? The [employer]aving Loom Operator HIV Ag/Ab Combo assay result and supplemental assay results should be interpreted in conjunction with the patient's clinical presentation, history and other laboratory results. ??If the results are inconsistent with clinical evidence, additional testing is suggested to confirm the result. 12/04/2019 2:49 PM EST us Historical Provider HISTORICAL/NON ORDERABLE LABS Final Result [facility] [address] from Last 3 Months or Most Recently Relevant to Health Maintenance Insurance [id number] Care Teams Freelance Writer Relationship Specialty Start Date End Date Everardo Dixon MD [address] [place] [phone] PCP - General Internal Medicine 04/13/20 Levy Diallo MD [address] [place] [id number] Referring Physician Internal Medicine 07/02/24
[2025-01-01 14:14] LABS: MANUAL DIFF FLAG NO
[2025-01-01 14:25] LABS: Basophils Percent Auto 0.6 % (0-2); Eosinophils Absolute Auto 0.1 X10*3/uL (0.0-0.4); Eosinophils Percent Auto 1.5 % (0-4); Hematocrit 38.5 % (37.0-47.0); Hemoglobin 12.9 g/dl (12.0-16.0); Imm Gran Abs Auto 0.01 X10*3/uL (0.00-0.03); Imm Gran Pct Auto 0.2 % (0.0-0.4); Lymphocytes Absolute Auto 1.7 X10*3/uL (1.2-4.9); Lymphocytes Percent Auto 35.8 % (20-40); Mean Corpuscular HGB Conc 33.5 g/dl (31.0-35.0); Mean Corpuscular Hemoglobin 30.1 pg (27.0-33.0); Mean Corpuscular Volume 89.7 fL (80.0-98.0); Mean Platelet Volume 10.2 fL (9.4-12.3); Monocytes Absolute Auto 0.4 X10*3/uL (0.1-1.2); Monocytes Percent Auto 8.8 % (2-11); Neutrophils Absolute Auto 2.5 x10*3/uL (2.0-8.3); Neutrophils Percent Auto 53.1 % (45-73); Platelet Count 291 X10*3/uL (160-400); Red Blood Count 4.29 X10*6/uL (4.20-5.50); Red Cell Distribution Width 12.5 % (11.0-16.0); White Blood Count 4.8 X10*3/uL (4.8-10.8)
[2025-01-01 14:43] LABS: Estimated Average Glucose 105 mg/dL; Hemoglobin A1c % 5.3 % (<6.0); Total Hemoglobin (HGBA1C) 3302.8021 umol/L
[2025-01-01 14:49] LABS: Alanine Aminotransferase 20 U/L (0-31); Albumin Level 4.2 g/dL (3.5-5.0); Alkaline Phosphatase 90 U/L (39-117); Anion Gap 12 (12-20); Aspartate Amino Transferase 31 U/L (5-31); Bilirubin Total 1.1 mg/dL (0.0-1.0); Blood Urea Nitrogen 11 mg/dL (9-16); Calcium 10.1 mg/dL (8.4-10.2); Carbon Dioxide 29 mmol/L (22-29); Chloride 107 mmol/L (96-108); Cholesterol 162 mg/dL (<200); Estimated Glomerular Filt Rate > 60; Glucose Random 100 mg/dL (60-115); HDL Cholesterol 51 mg/dL (>40); LDL Cholesterol Calculated 97 mg/dL (<100); Potassium 3.6 mmol/L (3.3-5.1); Sodium 144 mmol/L (135-145); Total Protein 7.9 g/dL (6.5-8.0); Triglycerides 72 mg/dL (<150)
[2025-01-01 15:10] LABS: TSH reflex Free T4 1.58 uIU/mL (0.32-4.0)
== END 2025-01-01 09:35 | disposition home or self-care (01) ==
LOC: HO.CHCLDS 09:34
PROVIDERS: Visit Provider Internal Medicine
DX: I10 Essential (primary) hypertension (principal)
CPT/HCPCS: 36415; 80053; 80061; 83036; 84443; 85025

== ENCOUNTER 2025-01-25 13:11 | Outpatient (AMB) | payer OTHER, SELFPAY ==
--- NOTE | 2025-01-25 13:13 | A.OFFVIS_ITS ---
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 Patient reports her right thumb has been catching and locking since August of 2024. She is right handed and says she uses that hand for all her activities. She has to forcefully use her opposite hand to extend her thumb however this causes pain. She expresses at night is when her symptoms are the worse. She has tried OTC medications and says this offers no relief. Accompanied by: Daughter Allergies No Known Allergies Allergy (Verified 01/25/25 13:16) HPI HPI SPORTS PHYSICAL THERAPIST-trigger finger of right thumb: Details: Zo is a 49 year old right hand dominant female who presents today with her daughter Skyla as a new patient for evaluation of trigger finger of right thumb. Patient reports her right thumb has been catching and locking since August of 2024. She is right handed and says she uses that hand for all her activities. She has to forcefully use her opposite hand to extend her thumb however this causes pain. She expresses at night is when her symptoms are the worse. She has tried OTC medications and says this offers no relief. 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 Neuro: Normal sensation of the tips of all digits of the right hand at this time Vascular: Cap refill brisk Pain: Tenderness to palpation of the A1 laureano of the right thumb No other tenderness to palpation noted There is pain associated with locking and catching of the right thumb ROM: There is a visible and palpable locking and catching of the right thumb Patient is able to flex and extend all other digits of the right hand fully and without difficulty Skin: No lacerations or abrasions. General: No ecchymosis, erythema, or evidence of infection. Psych: Appears grossly normal Affect normal Attitude cooperative Assessment & Plan Assessment & Plan (1) Trigger finger of right thumb: Code(s): M65.311 - Trigger thumb, right thumb Category: Medical Plan 1. Trigger thumb, right thumb I educated the patient about the condition. I discussed both operative and nonoperative treatment options. The patient would like to proceed with surgery. The risks and benefits of operative treatment were discussed with the patient and the patient wishes to proceed with surgery. These risks include, but are not limited to, risk of damage to blood vessels, nerves, tendons, infection, recurrence, incomplete relief of preoperative symptoms, persistent pain, possible need for further surgery, and the risks associated with regional blocks and/or anesthesia. Plan is to take the patient to the operating room at some point in the next few weeks for the following procedures: 1. Right trigger thumb release under local All of the preoperative paperwork including the consent was discussed today. All of the patient's questions were answered in the clinic today. The patient understands that they will be in contact with our hydraulic blocker to discuss scheduling their procedure. Patient denies diabetes, blood thinners, asthma, heart issues, lung issues, kidney issues, or current smoking. Coding Level of Care Code New Pt Level 4 (44142) Diagnoses Trigger finger of right thumb M65.311
--- OUTSIDE RECORDS SUMMARY | 2025-01-25 14:44 | XMS_ITS | Clinical Summary ---
Author Organization [facility] ity Address [address] [place] [address] Care Team Providers Care Oyster Buyer Name Role Phone Levy Lema MD Primary Care [facility] Social History Tobacco Use Types Packs/Day Years [...] Vaccines (1 of 2) 2023 COVID-19 Vaccine (1 - 2023-2 5 season) 2024 Influenza Vaccine [...] age to complete this topic Care Teams Oyster Buyer Relationship Specialty Start Date End Date Levy Lema MD [address] [place] [address] [place] [id number] PCP - General Internal Medicine 03/09/21
--- OUTSIDE RECORDS SUMMARY | 2025-01-25 14:44 | XMS_ITS | Encounter Summary ---
Author Organization [employer] Address [address] [facility] [address], [place] [address] Care Team Providers Care Padded Box Sewer Name Role Phone Everardo Dixon MD Primary Care Prov ider Levy Diallo MD Unavailable [phone] Reason for Visit * Reason Onset Date Comments chart prep 01/15/2025 Encounter Details Date Type Department Care Team ([facility] st Contact Info) Description 01/15/2025 Telephone [facility] MED & PEDS [address] [place], [place] [phone] Everardo Dixon MD [address] [place] [address] chart prep Social History Tobacco Use Types Packs/Day Years [...] AM EDT documented as of this encounter Miscellaneous Notes * Telephone Encounter - Joceline Mantilla MA - 01/15/2025 4:05 PM EST Chart Prep Labs: done Images: done Vaccines due: yes Referrals: pending appt Screenings: done Overdue care gaps: Sbirt documented in this encounter Plan of Treatment Upcoming Encounters Date Type Department Care Team (Late st Contact Info) Description 04/18/2025 11:30 AM EDT Telemedicine [facility] MED & PEDS [address] [place] [address] Everardo Dixon MD [address] [place] [address] documented as of this encounter Visit Diagnoses Not on filedocumented in this encounter Additional Health Concerns Assessment Noted Time PHQ-9 Depression Total Score: 0 02/12/20 23 11:13 AM EDT documented as of this encounter Care Teams Padded Box Sewer Relationship Specialty Start Date End Date Everardo Dixon MD [address] [place] [address] PCP - General Internal Medicine 04/13/20 Levy Diallo MD [address] [place] [id number] Referring Physician Internal Medicine 07/02/24 documented as of this encounter
--- OUTSIDE RECORDS SUMMARY | 2025-01-25 14:44 | XMS_ITS | Encounter Summary ---
Author Organization [employer] Address [address] [facility] [address] [place] [address] Care Team Providers Care Aircraft De Icer Installer Name Role Phone Everardo Dixon MD Primary Care Prov ider Levy Diallo MD Unavailable [phone] Encounter Details Date Type Department Care Team ([facility] st Contact Info) Description 01/16/2025 10:15 AM EST Telemedicine [facility] MED & PEDS [address] [place], [place] [phone] Everardo Dixon MD [address] [place] [address] Primary hypertension Social History Tobacco Use Types Packs/Day Years [...] Sign Reading Time Taken Comments Blood Pressure 144/88 01/16/2025 10:15 AM EST Pulse - - Temperature - - Respiratory Rate - - Oxygen Saturation - - Inhaled Oxygen Concentration - - Weight - - Height - - Body Mass Index - - documented in this encounter Progress Notes * Everardo Devi MD - 01/16/2025 10:15 AM EST Subjective Patient ID: Zo Sawant is a 49 y.o. female who presents for No chief complaint on file.. Hypertension This is a chronic problem. The problem is controlled. Pertinent negatives include no chest pain, headaches, palpitations, peripheral edema or shortness of breath. Review of Systems Respiratory: Negative for shortness of breath. Cardiovascular: Negative for chest pain and palpitations. Neurological: Negative for headaches. Objective Physical Exam Neurological: General: No focal deficit present. Mental Status: She is oriented to person, place, and time. Psychiatric: Mood and Affect: Mood normal. Behavior: Behavior normal. Assessment/Plan Problem List Items Addressed This Visit Primary hypertension Slightly above target, she refers has remained below 140/90, encouraged to keep low sodium diet andexercise as tolerated, call back if bp >140/90 20% of the time Relevant Medications lisinopril-hydroCHLOROthiazide 20-25 MG tablet documented in this encounter Miscellaneous Notes * Assessment & Plan Note - Everardo Devi MD - 01/16/2025 10:43 AM ESTAssociated Problem(s): Primary hypertension Slightly above target, she refers has remained below 140/90, encouraged to keep low sodium diet andexercise as tolerated, call back if bp >140/90 20% of the time documented in this encounter Plan of Treatment Upcoming Encounters Date Type Department Care Team (Late st Contact Info) Description 04/18/2025 11:30 AM EDT Telemedicine [facility] MED & PEDS [address] [place] [address] Everardo Dixon MD [address] [place] [address] documented as of this encounter Visit Diagnoses Diagnosis Primary hypertension Unspecified essential hypertension documented in this encounter Additional Health Concerns Assessment Noted Time PHQ-9 Depression Total Score: 0 02/12/20 23 11:13 AM EDT documented as of this encounter Care Teams Aircraft De Icer Installer Relationship Specialty Start Date End Date Everardo Dixon MD [address] [place] [address] PCP - General Internal Medicine 04/13/20 Levy Diallo MD [address] [place] [id number] Referring Physician Internal Medicine 07/02/24 documented as of this encounter
--- OUTSIDE RECORDS SUMMARY | 2025-01-25 14:44 | XMS_ITS | Encounter Summary ---
Author Organization [employer] Address [address] [facility] [address] [place] [address] Care Team Providers Care Shoe Treer Name Role Phone Everardo Dixon MD Primary Care Prov ider Levy Diallo MD Unavailable [phone] Encounter Details Date Type Department Care Team (Latest Contact Info) Description 01/16/2025 Travel Social History Tobacco Use Types Packs/Day [...] Info) Description 04/18/2025 11:30 AM EDT Telemedicine [facility] MED & PEDS [address] [place] [address] Everardo Dixon MD [address] [place] [address] documented as of this encounter Visit Diagnoses Not on filedocumented in this encounter Additional Health Concerns Assessment Noted Time PHQ-9 Depression Total Score: 0 02/12/20 23 11:13 AM EDT documented as of this encounter Care Teams Shoe Treer Relationship Specialty Start Date End Date Everardo Dixon MD [address] [place] [address] PCP - General Internal Medicine 04/13/20 Levy Diallo MD [address] [place] [address] Referring Physician Internal Medicine 07/02/24 documented as of this encounter
--- OUTSIDE RECORDS SUMMARY | 2025-01-25 14:44 | XMS_ITS | Clinical Summary ---
Author Organization [employer] Address [address] [facility] [address] [place] [address] Care Team Providers Care Automobile Mechanic Motor Name Role Phone Everardo Dixon MD Primary Care Prov ider Levy Diallo MD Unavailable [phone] Allergies No known active allergies Medications Blood Pressure kit Active estradiol (Climara) 0.05 MG/24HR Place 1 patch on the skin 1 (one) time per week. 4 patch 11 07/02/20 24 025 Active lisinopril-hydro CHLOROthiazide 20-25 MG tabletIndication s:Primary hypertension Take 1 tablet by mouth Once per day. 90 tablet 3 01/17/20 25 026 Active lisinopril-hydro CHLOROthiazide 20-25 MG tabletIndication s:Primary hypertension Take 1 tablet by mouth Once per day. 90 tablet 3 03/06/20 24 025 Discontinued(Re order (will not trigger notification to Pharmacy)) Active Problems Problem Noted Date Diagnosed Date [...] 09/12/2014 Primary hypertension 09/12/2014 Assessment & Plan (01/16/2025 10:43 AM EST): Slightly above target, she refers has remained below 140/90, encouraged to keep low sodium diet and exercise as tolerated, call back if bp >140/90 20% of the time Assessment & Plan (12/19/2024 2:43 PM EST): [...] Encounters Date Type Department Care Team Description 01/16/2025 10:15 AM EST Telemedicine [facility] [address] [place] [phone] Everardo Dixon MD Primary hypertension 01/16/2025 Travel 01/15/2025 Telephone [facility] [address] [place] [address] Everardo Dixon MD chart prep 12/19/2024 2:00 PM EST Office Visit [facility] [address] [place] [address] Everardo Dixon MD Primary hypertension (Primary Dx); Trigger finger of right thumb 12/19/2024 Travel 12/12/2024 Patient Outreach [facility] [address] [place] [address] Everardo Dixon MD Pre-visit Planning (SDOH negative, Tobacco screening negative) from Last 3 Months Immunizations Name Administration [...] Pressure 144/88 01/16/2025 10:15 AM EST Pulse 74 12/19/2024 2:22 PM EST [...] Upcoming Encounters Date Type Department Care Team ([facility] st Contact Info) Description 04/18/2025 11:30 AM EDT Telemedicine [facility] [address] [place] [address] Everardo Dixon MD [address] [place] [address] Health Maintenance Due Date Last Done Comments CT Colonography 1973 FIT DNA/Cologuard 1975 FIT 1975 FOBT 1975 Sigmoidoscopy 1975 Family Planning (PISQ) 1988 Hepatitis B Vaccines (1 of 3 - 19+ 3-dose series) 1992 Pneumococcal Vaccine: 50+ Years (1 of 1 - PCV) 2023 Zoster Vaccines (1 of 2) 2023 COVID-19 Vaccine (3 - season) 2024 01/02/2022, 04/09/2021 Influenza Vaccine (#1) 2024 , 08/25/2021, 10/02/2020, Additional history exists Depression Screening 03/06/2025 03/06/2024, 02/12/20 23 SDOH Screening 12/12/2025 12/12/2024 Tobacco Screening 12/19/2025 12/19/2024 Alcohol/Substance Use Screening 01/16/2026 01/16/2025 Cervical Cancer Screening 04/07/2026 HPV/Cotest 04/07/2026 04/07/2021 Pap Smear 04/07/2026 04/07/2021 Mammogram 10/20/2026 10/20/2024, 12/2022, 10/09/2022, Additional history exists Lipid Panel 01/01/2030 01/01/2025, 01/2023, 03/24/2023, Additional history exists Colonoscopy 06/28/2032 Colorectal Cancer [...] Procedure Name Priority Date/Time Associated Diagnosis Comments HEMOGLOBIN A1C Routine 01/01/2025 9:35 AM EST Primary hypertension TSH W/REFLEX TO FT4 Routine 01/01/2025 9 :35 AM EST Primary hypertension LIPID PANEL, STANDARD Routine 01/01/2025 9:35 AM EST Primary hypertension COMPREHENSIVE METABOLIC PANEL Routine 01/01/2025 9:35 AM EST Primary hypertension CBC WITH AUTO DIFFERENTIAL Routine 01/01/2025 9:35 AM EST Primary hypertension BI MAMMOGRAM SCREENING TOMOSYNTHESIS BILATERAL Routine 10/20/2024 7:58 AM EST HEPATITIS C AB W/REFL TO HCV RNA, QN, PCR Routine 03/24/2023 9:54 AM EDT Primary hypertension HPV MRNA E6/E7 Routine 04/07/2021 10:38 AM EDT THINPREP PAP Routine 04/07/2021 10:38 AM EDT ZZZ HISTORICAL HIV AB/AG Routine 12/04/2019 2:49 PM EST from Last 3 Months or Most Recently Relevant to Health Maintenance Results * TSH W/Reflex to FT4 (01/01/2025 9:35 AM EST) Pathologist [facility] TSH reflex Free T4 1.58 0.32 - 4.0 uIU/mL [facility] Blood Venous blood specimen / Unknown 01/01/2025 9:35 AM EST 01/01/2025 2:14 PM EST us Everardo Devi MD LAB BLOOD ORDERABL ES Final Result [facility] [address] [place] [phone] [phone] * CBC auto differential (01/01/2025 9:35 AM EST) Pathologist [facility] White Blood Count 4.8 4.8 - 10.8 X10*3/uL [facility] Red Blood Count 4.29 4.20 - 5.50 X10*6/uL [facility] Hemoglobin 12.9 12.0 - 16.0 g/dl [facility] Hematocrit 38.5 37.0 - 47.0 % [facility] Mean Corpuscular Volume 89.7 80.0 - 98.0 fL [facility] Mean Corpuscular Hemoglobin 30.1 27.0 - 33.0 pg [facility] Mean Corpuscular HGB Conc 33.5 31.0 - 35.0 g/dl [facility] Red Cell Distribution Width 12.5 11.0 - 16.0 % [facility] Platelet Count 291 160 - 400 X10*3/uL [facility] Mean Platelet Volume 10.2 9.4 - 12.3 fL [facility] Neutrophils Percent Auto 53.1 45 - 73 % [facility] Imm Gran Pct Auto 0.2 0.0 - 0.4 % [facility] Lymphocytes Percent Auto 35.8 20 - 40 % [facility] Monocytes Percent Auto 8.8 2 - 11 % [facility] Eosinophils Percent Auto 1.5 0 - 4 % [facility] Basophils Percent Auto 0.6 0 - 2 % [facility] NRBC Pct Auto 0.0 0.0 - 0.2 /100WBC [facility] Neutrophils Absolute Auto 2.5 2.0 - 8.3 x10*3/uL [facility] Imm Gran Abs Auto 0.01 0.00 - 0.03 X10*3/uL [facility] Lymphocytes Absolute Auto 1.7 1.2 - 4.9 X10*3/uL [facility] Monocytes Absolute Auto 0.4 0.1 - 1.2 X10*3/uL [facility] Eosinophils Absolute Auto 0.1 0.0 - 0.4 X10*3/uL [facility] Basophils Absolute Auto 0.0 0.0 - 0.2 X10*3/uL [facility] NRBC Abs Auto 0.000 0.0 - 0.012 X10*3/uL [facility] Blood Venous blood specimen / Unknown 01/01/2025 9:35 AM EST 01/01/2025 2:12 PM EST us Everardo Devi MD LAB BLOOD ORDERABL ES Final Result [facility] [address] [place] [phone] * Hemoglobin A1c (01/01/2025 9:35 AM EST) Hemoglobin A1c 5.3 <6.0 % [facility] Comment:Hemoglobin A1C Refer ence Range Adults: 4.8 - 6.0 % Non diabetic: < 6.0 % Goal: < 7.0 %Additional Action Suggested: > 8.0 %Note: Hemoglobin A1c results are invalid for patients with abnormal amounts of HbF. Blood transfusions may impact the HbA1c concentration in the patient sample. Estimated Average Glucose 105 mg/dL [facility] Comment:eAG = Estimated ave rage glucose which is %A1C expressed asaverage glucose, using the formula of the B5K-VwobmraKqlrfex Glucose study (ADAG), Diabetes Care, Vol.31,#8,Jun. 2007 Blood Venous blood specimen / Unknown 01/01/2025 9:35 AM EST 01/01/2025 2:12 PM EST us Everardo Devi MD LAB BLOOD ORDERABL ES Final Result Performing Organization Address [facility] Co de Phone Number [facility] [address] [place] [phone] * Lipid Panel, Standard (01/01/2025 9:35 AM EST) Triglycerides 72 <150 mg/dL [facility] Comment:Desirable Triglyceri de: less than 150 mg/dLBorderline High Triglyceride 150-199 mg/dLHigh Triglyceride: 200-499 mg/dLVery High Triglyceride: greater than or equal to 5OO mg/dL Cholesterol 162 <200 mg/dL [facility] Comment:Desirable Cholestero l: less than 200 mg/dLBorderline High Cholesterol: 200-239 mg/dLHigh Cholesterol: greater than 239 mg/dL LDL Cholesterol Calculated 97 <100 mg/dL [facility] Comment:Desirable LDL: less than 100 mg/dLNear Optimal/Above Optimal LDL: 110- 129 mg/dLBorderline High LDL: 130-159 mg/dLHigh LDL: 160-189 mg/dLVery High LDL: greater than or equal to 190 mg/dL HDL Cholesterol 51 >40 mg/dL [facility] Comment:Desirable HDL: great er than 40 mg/dL Note: This HDL assay may give artificially low results in patients with liver disease. Blood Venous blood specimen / Unknown 01/01/2025 9:35 AM EST 01/01/2025 2:14 PM EST us Everardo Devi MD LAB BLOOD ORDERABL ES Final Result Performing Organization Address [facility]/ZIP Co de Phone Number [facility] [address] [place] [phone] * (ABNORMAL) Comprehensive Metabolic Panel (01/01/2025 9:35 AM EST) Sodium 144 135 - 145 mmol/L [facility] Potassium 3.6 3.3 - 5.1 mmol/L [facility] Chloride 107 96 - 108 mmol/L [facility] Carbon Dioxide 29 22 - 29 mmol/L [facility] Anion Gap 12 12 - 20 [facility] Urea Nitrogen (BUN) 11 9 - 16 mg/dL [facility] Creatinine, Serum 0.71 0.5 - 1.4 mg/dL [facility] Estimated Glomerular Filt Rate >60 [facility] Comment:Chronic Kidney Disea se: Estimated GFR < 60 mL/min/1.44n6Dcbvne Kidney Disease: Estimated GFR < 15 mL/min/1.73m2 Glucose 100 60 - 115 mg/dL [facility] Calcium 10.1 8.4 - 10.2 mg/dL [facility] Bilirubin, Total 1.1(H) 0.0 - 1.0 mg/dL [facility] Aspartate Amino Transferase 31 5 - 31 U/L [facility] Alanine Aminotransferase 20 0 - 31 U/L [facility] Total Protein 7.9 6.5 - 8.0 g/dL [facility] Albumin Level 4.2 3.5 - 5.0 g/dL [facility] Alkaline Phosphatase 90 39 - 117 U/L [facility] Blood Venous blood specimen / Unknown 01/01/2025 9:35 AM EST 01/01/2025 2:14 PM EST us Everardo Devi MD LAB BLOOD ORDERABL ES Final Result [facility] [address] [place] [phone] * BI Mammogram Screening Tomosynthesis Bilateral (10/20/2024 7:58 AM EST) Anatomical Region Laterality Modality Breast Bilateral Mammography 10/20/2024 7:58 AM EST Narrative 10/25/2024 1:58 PM EST ? [place] [facility] ? [address] ?[place] [address] ? Mammography Report ? Signed ? Patient: Sawant,Zo ?MR#: [id number] ? : 1975 ?Acct:[id number] ? Age/Sex: 49 / F ?ADM Date: 10/20/24 ? Loc: HO.MAMMO ? Attending Dr: Everardo Devi MD ? Ordering Physician: Everardo Dixon MD ?Res ?? ults: 1Negative ? Date of Service: 10/20/24 ?Follow Up: 1 Year From Orig ?? inal Mammogram ? Procedure(s): MM tomosynthesis screening BI ?? Accession Number(s): [id number] ? cc: Everardo Dixon MD ? EXAMINATION: [...] their next mammogram. ? Electronically signed by: ??Claudette Blackwell DO ??10/25/2024 01:56 PM EST ? Dictated By: ?Claudette Blackwell DO ? Signed By: ?<Electronically signed by Claudette Blackwell, DO in OV> ? 10/25/24 [id number] ? DD/ 0758 ? TD/TT: 10/20/24 0813 ? Compliance Advisor: ? Procedure Note Salvadornancy, Image - 10/26/2024 [place] [facility] [address] [place] [address] Mammography Report Signed Patient: Humza Sawant#: [id number] : 1975Acct:[id number] Age/Sex: 49 / FADM Date: 10/20/24 Loc: HO.MAMMO Attending Dr: Everardo Devi MD Ordering Physician: Everardo Dixon ults: 1Negative Date of Service: 10/20/24Follow Up: 1 Year From Orig inal Mammogram Procedure(s): MM tomosynthesis screening BI Accession Number(s): [id number] cc: Everardo Dixon MD EXAMINATION: MM SCREENING [...] by: Claudette Blackwell DO 10/25/2024 01:56 PM EST Dictated By: Claudette Blackwell DO Signed By: <Electronically signed by Claudette Blackwell DO in OV> 10/25/24 1356 DD/ 0758 TD/TT: 10/20/24 0813 Compliance Advisor: Everardo Devi MD IM BI PROCEDURES Edited Result - Final * Hepatitis C Antibody with Reflex to HCV, RNA, Quantitative, Real-Time PCR (03/24/2023 9:54 AM EDT) Hepatitis C Antibody NON-REACT STEVEN NON-REACT STEVEN [facility] Index 0.18 <1.00 [facility] Comment: HCV antibody was non-reactive. There is no laboratory evidence of HCV infection. In most cases, no further action is required. However, if recent HCV exposure is suspected, a test for HCV RNA (test code 05303) is suggested. For additional information please refer to http://education.[employer]Ment[employer]/faq/OJV72h7 (This link is being provided for informational/ educational purposes only.) Blood Venous blood specimen / Unknown 03/24/2023 9:54 AM EDT 03/24/2023 9:55 AM EDT Narrative [facility] - 03/25/2023 2:47 AM EDT FASTING:YES FASTING: YES Everardo Devi MD LAB BLOOD ORDERABL ES Final Result [facility] [address], [place] [address] [facility] [address] [place] [address] * THINPREP PAP (04/07/2021 10:38 AM EDT) [...] historic and ?? current clinical information. ?? Baton Twirler : SEE COMMENT [facility] Comment: DMM, CT(ASCP) CT screening location: [address] ??[phone] Interpretation/R esult: Negative for intraepithelial lesion or malignancy. [facility] LMP: NONE GIVEN [facility] Prev. BX: NONE GIVEN [facility] Prev. PAP: NONE [facility]IVEN [facility] SOURCE: None given [facility] Statement Of Adequacy: SEE COMMENT [facility] Comment: Satisfactory for evaluation. Endocervical/transformation zone component present. Age and/or menstrual status not provided 04/07/2021 10:3 8 AM EDT Dea [facility] PATHOLOGY ORDERABLES Final Result [facility] [address] * HPV mRNA E6/E7 (04/07/2021 10:38 AM EDT) HPV nRNA E6/E7 Not Detected Not Detected [facility] Comment: Methodology: Rinkman-Mediated Amplification This assay detects E6/E7 viral messenger RNA (mRNA) from 14 high-risk HPV types (16,18,31,33,35,39,45,51,52,56,58,59,66,68). ? The analytical performance characteristics of this assay have been determined by [facility]. The modifications have not been cleared or approved by the FDA. This assay has been validated pursuant to the CLIA regulations and is used for clinical purposes. ?? For additional information, please refer to http://education.[employer]Mentors/faq/EPE751t3 (This link if provided for information/ educational purposes only.) 04/07/2021 10:3 8 AM EDT Dea Hurley [facility] LAB BLOOD ORDERABLES Charu l Result Performing Organization Address [facility] Phone Number [facility] [address] * HIV AB/AG (12/04/2019 2:49 PM EST) [facility] HIV AG/AB NONREACTIVE NR [facility] [...] detection of this assay. ?? The [employer] HIV Ag/Ab Combo assay result and supplemental assay results should be interpreted in conjunction with the patient's clinical presentation, history and other laboratory results. ??If the results are inconsistent with clinical evidence, additional testing is suggested to confirm the result. 12/04/2019 2:49 PM EST Historical Provider MD HISTORICAL/NON ORDERABLE LABS Final Result Performing Organization Address [facility] Phone Number [facility] [address] from Last 3 Months or Most Recently Relevant to Health Maintenance Insurance [id number] [place] [address] HEALTH PLAN [facility] CARE OPTIONS HMO SNP Care Teams Automobile Mechanic Motor Relationship Specialty Start Date End Date Everardo Dixon MD [address] [place] [phone] PCP - General Internal Medicine 04/13/20 Levy Diallo MD [address] [place] [phone] Referring Physician Internal Medicine 07/02/24
== END 2025-01-25 13:47 | disposition home or self-care (01) ==
LOC: HO.HOS 13:12
PROVIDERS: PCP Internal Medicine
DX: M65.311 Trigger thumb, right thumb (principal)
CPT/HCPCS: 99204

== ENCOUNTER → 2025-01-25 13:11 | Outpatient (BNVA) | payer OTHER, SELFPAY | PROVIDERS: PCP Internal Medicine | DX: M65.311 Trigger thumb, right thumb (principal) | CPT/HCPCS: 99202 ==

== ENCOUNTER 2025-03-05 09:09 | Day surgery (SDC) | payer OTHER, SELFPAY ==
--- OUTSIDE RECORDS SUMMARY | 2025-02-19 14:45 | XMS_ITS | Encounter Summary ---
Author Organization [employer] Address [address] [facility] [address] [place] [address] Care Team Providers Care Foster Care Worker Name Role Phone Everardo Dixon MD Primary Care Prov ider Levy Diallo MD Unavailable +- [phone] Encounter Details Date Type Department Care Team (Late st Contact Info) Description 02/13/2025 Orders Only [place] [facility] [address] [place], [place] [phone] Provider, MD Tonya Social History Tobacco Use Types Packs/Day Years [...] Info) Description 04/18/2025 11:30 AM EDT Telemedicine [facility] [address] [place], [place] [phone] Everardo Dixon MD [address] [place] [address] documented as of this encounter Procedures Procedure Name Priority Date/Time Associated Diagnosis Comments VASC US LOWER EXTREMITY VENOUS DUPLEX LEFT Routine 02/12/2025 10:53 AM EDT documented in this encounter Results * VASC US LOWER EXTREMITY VENOUS DUPLEX LEFT (02/12/2025 10:53 AM EDT) us Historical Provider CV VASCULAR PROCEDURES Fi nal Result documented in this encounter Visit Diagnoses Not on filedocumented in this encounter Additional Health Concerns Assessment Noted Time PHQ-9 Depression Total Score: 0 02/12/20 23 11:13 AM EDT documented as of this encounter Care Teams Foster Care Worker Relationship Specialty Start Date End Date Everardo Dixon MD [address] [place] [address] PCP - General Internal Medicine 04/13/20 Levy Diallo MD [address] [place] [address] Referring Physician Internal Medicine 07/02/24 documented as of this encounter
--- OUTSIDE RECORDS SUMMARY | 2025-02-19 14:45 | XMS_ITS | Clinical Summary ---
Author Organization [employer] Address [address] [facility] 7[address] [place] [address] Care Team Providers Care Residential Mortgage Underwriter Name Role Phone Everardo Dixon MD Primary Care Prov ider Levy Diallo MD Unavailable [phone]- [phone] Allergies No known active allergies Medications Blood Pressure kit Active estradiol (Climara) 0.05 MG/24HR Place 1 patch on the skin 1 (one) time per week. 4 patch 11 07/02/2024 07/02/20 25 Active lisinopril-hydroC HLOROthiazide 20-25 MG tabletIndications :Primary hypertension Take 1 tablet by mouth Once per day. 90 tablet 3 01/16/2025 01/17/20 26 Active Active Problems Problem Noted Date Diagnosed [...] Encounters Date Type Department Care Team Description 02/18/2025 Telephone [facility] [address] [facility] [place] [address] Everardo Dixon MD 02/13/2025 Orders Only [facility] [address] [facility] [place] [address] ProviderTonya MD 01/16/2025 10:15 AM EST Telemedicine [facility] [address] [place] [address] Everardo Dixon MD Primary hypertension 01/16/2025 Travel 01/15/2025 Telephone [facility] [address] [place] [address] Everardo Dixon MD chart prep 12/19/2024 2:00 PM EST Office Visit [facility] [address] [place] [address] Everardo Dixon MD Primary hypertension (Primary Dx); Trigger finger of right thumb 12/19/2024 Travel 12/12/2024 Patient Outreach [facility] [address] [place] [address] Everardo Dixon MD Pre-visit Planning (SDOH negative, [...] Upcoming Encounters Date Type Department Care Team ([facility] st Contact Info) Description 04/18/2025 11:30 AM EDT Telemedicine [facility] [address] [place] [address] Everardo Dixon MD [address] [place] [address] Health Maintenance Due Date Last Done Comments [...] DUPLEX LEFT Routine 02/12/2025 10:53 AM EDT HEMOGLOBIN A1C Routine 01/01/2025 9:35 AM EST [...] Recently Relevant to Health Maintenance Results * VASC US LOWER EXTREMITY VENOUS DUPLEX LEFT (02/12/2025 10:53 AM EDT) Historical Provider CV VASCULAR PROCEDURES Fi nal Result * TSH W/Reflex to FT4 (01/01/2025 9:35 AM EST) TSH reflex Free T4 1.58 0.32 - 4.0 uIU/mL [facility] Blood Venous blood specimen / Unknown 01/01/2025 9:35 AM EST 01/01/2025 2:14 PM EST Everardo Devi MD LAB BLOOD ORDERABL ES Final Result [facility] [address] [place] [address] [phone] * CBC auto differential (01/01/2025 9:35 AM EST) White Blood Count 4.8 4.8 - 10.8 X10*3/uL [facility] Red Blood Count 4.29 4.20 - 5.50 X10*6/uL [facility] Hemoglobin 12.9 12.0 - 16.0 g/dl [facility] Hematocrit 38.5 37.0 - 47.0 % [facility] Mean Corpuscular Volume 89.7 80.0 - 98.0 fL [facility] Mean Corpuscular Hemoglobin 30.1 27.0 - 33.0 pg [facility] Mean Corpuscular HGB Conc 33.5 31.0 - 35.0 g/dl [facility] Red Cell Distribution Width 12.5 11.0 - 16.0 % [facility] Platelet Count 291 160 - 400 X10*3/uL [facility] Mean Platelet Volume 10.2 9.4 - 12.3 fL [facility] Neutrophils Percent Auto 53.1 45 - 73 % [facility] Imm Gran Pct Auto 0.2 0.0 - 0.4 % [facility] Lymphocytes Percent Auto 35.8 20 - 40 % [facility] Monocytes Percent Auto 8.8 2 - 11 % [facility] Eosinophils Percent Auto 1.5 0 - 4 % [facility] Basophils Percent Auto 0.6 0 - 2 % [facility] NRBC Pct Auto 0.0 0.0 - 0.2 /100WBC [facility] Neutrophils Absolute Auto 2.5 2.0 - 8.3 x10*3/uL [facility] Imm Gran Abs Auto 0.01 0.00 - 0.03 X10*3/uL [facility] Lymphocytes Absolute Auto 1.7 1.2 - 4.9 X10*3/uL [facility] Monocytes Absolute Auto 0.4 0.1 - 1.2 X10*3/uL [facility] Eosinophils Absolute Auto 0.1 0.0 - 0.4 X10*3/uL [facility] Basophils Absolute Auto 0.0 0.0 - 0.2 X10*3/uL [facility] NRBC Abs Auto 0.000 0.0 - 0.012 X10*3/uL [facility] Blood Venous blood specimen / Unknown 01/01/2025 9:35 AM EST 01/01/2025 2:12 PM EST us Everardo Devi MD LAB BLOOD ORDERABL ES Final Result [facility] [address] [place] [phone] * Hemoglobin A1c (01/01/2025 9:35 AM EST) Hemoglobin A1c 5.3 <6.0 % [facility] Comment:Hemoglobin A1C Refer ence Range Adults: 4.8 - 6.0 % Non diabetic: < 6.0 % Goal: < 7.0 %Additional Action Suggested: > 8.0 %Note: Hemoglobin A1c results are invalid for patients with abnormal amounts of HbF. Blood transfusions may impact the HbA1c concentration in the patient sample. Estimated Average Glucose 105 mg/dL [facility] Comment:eAG = Estimated ave rage glucose which is %A1C expressed asaverage glucose, using the formula of the D9I-XbwqlkeIcarvjz Glucose study (ADAG), Diabetes Care, Vol.31,#8,2007 Blood Venous blood specimen / Unknown 01/01/2025 9:35 AM EST 01/01/2025 2:12 PM EST us Everardo Devi MD LAB BLOOD ORDERABL ES Final Result [facility] [address] [place] [phone] * Lipid Panel, Standard (01/01/2025 9:35 AM EST) Triglycerides 72 <150 mg/dL [facility] Comment:Desirable Triglyceri de: less than 150 mg/dLBorderline High Triglyceride 150-199 mg/dLHigh Triglyceride: 200-499 mg/dLVery High Triglyceride: greater than or equal to 5OO mg/dL Cholesterol 162 <200 mg/dL [facility] Comment:Desirable Cholestero l: less than 200 mg/dLBorderline High Cholesterol: 200-239 mg/dLHigh Cholesterol: greater than 239 mg/dL LDL Cholesterol Calculated 97 <100 mg/dL [facility] Comment:Desirable LDL: less than 100 mg/dLNear Optimal/Above Optimal LDL: 110- 129 mg/dLBorderline High LDL: 130-159 mg/dLHigh LDL: 160-189 mg/dLVery High LDL: greater than or equal to 190 mg/dL HDL Cholesterol 51 >40 mg/dL [facility] Comment:Desirable HDL: great er than 40 mg/dL Note: This HDL assay may give artificially low results in patients with liver disease. Blood Venous blood specimen / Unknown 01/01/2025 9:35 AM EST 01/01/2025 2:14 PM EST us Everardo Devi MD LAB BLOOD ORDERABL ES Final Result [facility] [address] [place] [address] [phone] * (ABNORMAL) Comprehensive Metabolic Panel (01/01/2025 9:35 AM EST) Sodium 144 135 - 145 mmol/L [facility] Potassium 3.6 3.3 - 5.1 mmol/L [facility] Chloride 107 96 - 108 mmol/L [facility] Carbon Dioxide 29 22 - 29 mmol/L [facility] Anion Gap 12 12 - 20 [facility] Urea Nitrogen (BUN) 11 9 - 16 mg/dL [facility] Creatinine, Serum 0.71 0.5 - 1.4 mg/dL [facility] Estimated Glomerular Filt Rate >60 [facility] Comment:Chronic Kidney Disea se: Estimated GFR < 60 mL/min/1.86q1Luhukb Kidney Disease: Estimated GFR < 15 mL/min/1.73m2 Glucose 100 60 - 115 mg/dL [facility] Calcium 10.1 8.4 - 10.2 mg/dL [facility] Bilirubin, Total 1.1(H) 0.0 - 1.0 mg/dL [facility] Aspartate Amino Transferase 31 5 - 31 U/L [facility] Alanine Aminotransferase 20 0 - 31 U/L [facility] Total Protein 7.9 6.5 - 8.0 g/dL [facility] Albumin Level 4.2 3.5 - 5.0 g/dL [facility] Alkaline Phosphatase 90 39 - 117 U/L [facility] Blood Venous blood specimen / Unknown 01/01/2025 9:35 AM EST 01/01/2025 2:14 PM EST us Everardo Devi MD LAB BLOOD ORDERABL ES Final Result [facility] [address] [place] [phone] * BI Mammogram Screening Tomosynthesis Bilateral (10/20/2024 7:58 AM EST) Anatomical Region Laterality Modality Breast Bilateral Mammography 10/20/2024 7:58 AM EST Narrative 10/25/2024 1:58 PM EST ? [facility] [place] ? [address] ?[place] [address] ? Mammography Report ? Signed ? Patient: Zo Sawant ?MR#: [id number] ? : 1975 ?Acct:[id number] ? Age/Sex: 49 / F ?ADM Date: 10/20/24 ? Loc: HO.MAMMO ? Attending Dr: Everardo Devi MD ? Ordering Physician: Everardo Dixon MD ?Res ?? ults: 1Negative ? Date of Service: 10/20/24 ?Follow Up: 1 Year From Orig ?? inal Mammogram ? Procedure(s): MM tomosynthesis screening BI ?? Accession Number(s): [id number] ? cc: Everardo Dixon MD ? EXAMINATION: [...] ??Claudette Blackwell DO ??10/25/2024 01:56 PM EST ?? RP ? Dictated By: ?Claudette Blackwell DO ? Signed By: ?<Electronically signed by Claudette Blackwell, DO in OV> ? 10/25/24 1356 ? DD/ 0758 ? TD/TT: 10/20/24812 ? Window Caser: ? Procedure Note Tate, Image - 10/26/2024 [facility] [address] [place] [address] Mammography Report Signed Patient: Humza Sawant#: [id number] : 1975Acct:[id number] Age/Sex: 49 / FADM Date: 10/20/24 Loc: [facility] Attending Dr: Everardo Devi MD Ordering Physician: Everardo Dixon ults: 1Negative Date of Service: 10/20/24Follow Up: 1 Year From Orig inal Mammogram Procedure(s): MM tomosynthesis screening BI Accession Number(s): [id number] cc: Everardo Dixon MD EXAMINATION: MM SCREENING [...] by: Claudette Blackwell DO 10/25/2024 01:56 PM [facility] Dictated By: Claudette Blackwell DO Signed By: <Electronically signed by Claudette Blackwell DO in OV> 10/25/24 1356 DD/ 0758 TD/TT: 10/20/24 0813 Window Caser: Everardo Devi MD [facility] BI PROCEDURES Edited Result - Final * Hepatitis C Antibody with Reflex to HCV, RNA, Quantitative, Real-Time PCR (03/24/2023 9:54 AM EDT) Hepatitis C Antibody NON-REACT STEVEN NON-REACT STEVEN [facility] Index 0.18 <1.00 [employer] Comment: HCV antibody was non-reactive. There is no laboratory evidence of HCV infection. In most cases, no further action is required. However, if recent HCV exposure is suspected, a test for HCV RNA (test code 01482) is suggested. For additional information please refer to http://education.Skin Scan/faq/MAM63u3 (This link is being provided for informational/ educational purposes only.) Blood Venous blood specimen / Unknown 03/24/2023 9:54 AM EDT 03/24/2023 9:55 AM EDT Narrative [facility] - 03/25/2023 2:47 AM EDT FASTING:YES FASTING: YES Everardo Devi MD LAB BLOOD ORDERABL ES Final Result Performing Organization Address [facility]/ZIP Co de Phone Number [address], [place] [address] [facility] [address] [place] [address] * THINPREP PAP (04/07/2021 10:38 AM EDT) [...] historic and ?? current clinical information. ?? Child Welfare Specialist : SEE COMMENT [facility] Comment: DMM, CT(ASCP) CT screening location: [address] ??[address] Interpretation/R esult: Negative for intraepithelial lesion or malignancy. [facility] LMP: NONE [facility]IV[facility] Prev. BX: NONE GIVEN [facility] Prev. PAP: NONE [facility]IVEN [facility] SOURCE: None given [facility] Statement Of Adequacy: SEE COMMENT [facility] Comment: Satisfactory for evaluation. Endocervical/transformation zone component present. Age and/or menstrual status not provided 04/07/2021 10:3 8 AM EDT Dea Hurley CNM LAB PATHOLOGY ORDERABLES Final Result [facility] [address] * HPV mRNA E6/E7 (04/07/2021 10:38 AM EDT) Pathologist [facility] HPV nRNA E6/E7 Not Detected Not Detected [facility] Comment: Methodology: Heddler-Mediated Amplification This assay detects E6/E7 viral messenger RNA (mRNA) from 14 high-risk HPV types (16,18,31,33,35,39,45,51,52,56,58,59,66,68). ? The analytical performance characteristics of this assay have been determined by [employer]. The modifications have not been cleared or approved by the FDA. This assay has been validated pursuant to the CLIA regulations and is used for clinical purposes. ?? For additional information, please refer to http://education.Skin Scan/faq/PHB228e3 (This link if provided for information/ educational purposes only.) 04/07/2021 10:3 8 AM EDT Dea Hurley [facility] LAB BLOOD ORDERABLES Charu l Result Performing Organization Address City/[facility] Co de Phone Number [facility] [address] * HIV AB/AG (12/04/2019 2:49 PM EST) [facility] HIV AG/AB NONREACTIVE NR [facility] LAB [...] detection of this assay. ?? The [address] [facility] HIV Ag/Ab Combo assay result and supplemental assay results should be interpreted in conjunction with the patient's clinical presentation, history and other laboratory results. ??If the results are inconsistent with clinical evidence, additional testing is suggested to confirm the result. 12/04/2019 2:49 PM EST Historical Provider MD HISTORICAL/NON ORDERABLE LABS Final Result Performing Organization Address City/[facility]/ZIP Co de Phone Number [facility] [address] from Last 3 Months or Most Recently Relevant to Health Maintenance Insurance HSN PARTIAL [facility] OPTIONS HMO SNP Care Teams Residential Mortgage Underwriter Relationship Specialty Start Date End Date Everardo Dixon MD [address] [place] [address] PCP - General Internal Medicine 04/13/20 Levy Diallo MD [address] [place] [address] Referring Physician Internal Medicine 07/02/24
--- OUTSIDE RECORDS SUMMARY | 2025-02-19 14:45 | XMS_ITS | Clinical Summary ---
Author Organization [facility] Address [address] [place] [address] Care Team Providers Care Manufacturing Sr Engineer Name Role Phone Levy Lema MD Primary [...] age to complete this topic Meningococcal B Vaccine Aged Out No l onger eligible based on patient's age to complete [...] age to complete this topic Care Teams Manufacturing Sr Engineer Relationship Specialty Start Date End Date Levy Lema MD [address] [place] [address] [facility] [phone] PCP - General Internal Medicine 03/09/21
--- OUTSIDE RECORDS SUMMARY | 2025-02-19 14:45 | XMS_ITS | Encounter Summary ---
Author Organization [employer] Address [address] [facility] [address] [place] [address] Care Team Providers Care Associate Professor Of History Name Role Phone Everardo Dixon MD Primary Care Prov ider Levy Diallo MD Unavailable [phone]- [phone] Encounter Details Date Type Department Care Team (Late st Contact Info) Description 02/18/2025 Telephone [facility] [address] [place], [place] [phone] Everardo Dixon MD [address] [place] [address] Social History Tobacco Use Types Packs/Day Years [...] encounter Miscellaneous Notes * Telephone Encounter - Umm Womack - 02/18/2025 10:13 AM EDT Spoke with patient and informed her that the physical is ready for pick/up at [facility] documented in this encounter Plan of Treatment Upcoming Encounters Date Type Department Care Team (Late st Contact Info) Description 04/18/2025 11:30 AM EDT Telemedicine [facility] [address] [place] [address] Everardo Dixon MD [address] [place] [address] documented as of this encounter Visit Diagnoses Not on filedocumented in this encounter Additional Health Concerns Assessment Noted Time PHQ-9 Depression Total Score: 0 02/12/20 23 11:13 AM EDT documented as of this encounter Care Teams Associate Professor Of History Relationship Specialty Start Date End Date Everardo Dixon MD [address] [place] [address] PCP - General Internal Medicine 04/13/20 Levy Diallo MD [address] [place] [address] Referring Physician Internal Medicine 07/02/24 documented as of this encounter
[2025-03-05 09:55] VITALS: BP 162/89; PULSE 80; RESP 18; TEMP 36.6; O2SAT 100
[2025-03-05 10:03] VITALS: BMI 26.9
--- NOTE | 2025-03-05 10:07 | MHC.SHP ---
Pre-Procedural Eval Section A - 24 Hr Update-Section A only Date of Service: 03/05/25 The patient is an INPATIENT: No Changes since office visit: No Cold of Flu in the past 2 weeks, No New Medical Problems, No Changes in Medication and No Patient answered all questions The patient has been examined within 24 hours of the surgical procedure. The History & Physical has been completed within 30 days and I have reviewed it.: Yes Section B - Complete if H&P > 30 days Chief Complaint: Trigger thumb, right thumb Allergies: Allergies Allergy/AdvReac Type Severity Reaction Status Date / Time No Known Allergies Allergy Verified 03/05/25 10:03 Plan Diagnosis/Plan: Unchanged I have reviewed the history and physical and performed a pertinent physical examination on my patient. No changes have occurred unless specified. Time Spent With Patient Time: Total time managing care of this patient today ____ minutes.
--- NOTE | 2025-03-05 10:08 | W.PM.OPN ---
Operative Note Operative Note Date of Service: 03/05/25 Narrative: Operative Note Preop diagnosis: 1. Right thumb Trigger finger Postop diagnosis: Same Procedure: 1. Right thumb A1 laureano release Surgeon: Meche Reddy MD Traffic Officer: Jelani DE SOUZA Anesthesia: local block using 1% lidocaine with epinephrine Findings: No locking or catching after A1 laureano release EBL: Less than 5 mL Tourniquet time: None Specimens: None Complications: None Disposition: Brought to recovery room in stable condition Plan: Follow-up for 10-14 days for wound check and suture removal Indications: The patient is 49 years old, with a right thumb trigger finger that has been unresponsive to nonoperative management. The risks and benefits of operative treatment including but not limited to risk of damage to blood vessels, nerves, tendons, infection, persistent pain, persistent symptoms, recurrence or possible need for additional surgery were discussed with the patient and the patient wishes to proceed with surgery. Procedure: Once consent was obtained a local block was performed in the preop area using a combination of 1% lidocaine with epinephrine. The patient was then brought back to the operating suite and placed on the operative table in supine position. The right upper extremity was prepped and draped in a standard surgical fashion. Once assured that we had a good block, a 1.5 cm oblique incision was made centered over the A1 laureano of the right thumb . The incision was made through the skin to the subcutaneous tissues using a #15 blade. Careful dissection was made down to the level of the A1 laureano using tenotomy scissors, with care being taken to protect the nearby neurovascular structures. A longitudinal incision was made in the A1 laureano 1st using a #15 blade, then using tenotomy scissors under direct visualization. The A1 laureano was noted to be thickened. Following our A1 laureano release, we no longer saw any locking or catching of the digit with flexion and extension. Once satisfied with our A1 laureano release the wound was copiously irrigated with normal saline and hemostasis was obtained with a brief period of local pressure. The skin edges were reapproximated with some 5.0 nylon suture material and a sterile dressing was applied. The patient appears to have tolerated the procedure well and with no complications. All digits were well vascularized at the conclusion of the case.
[2025-03-05 10:37] VITALS: BP 174/91; PULSE 84; RESP 18; TEMP 36.9; O2SAT 99
== END 2025-03-05 10:39 | disposition home or self-care (01) ==
PROVIDERS: PCP Internal Medicine; Visit Provider Orthopaedic Surgery
PROC: (CPT 26055; principal; 2025-03-05 12:20)
DX: M65.311 Trigger thumb, right thumb (principal)
CPT/HCPCS: 26055; J0171; J2003

== ENCOUNTER → 2025-03-05 09:09 | Outpatient (BNV) | payer OTHER, SELFPAY | PROVIDERS: PCP Internal Medicine; Visit Provider Orthopaedic Surgery | DX: M65.311 Trigger thumb, right thumb (principal) | CPT/HCPCS: 26055 ==

== ENCOUNTER 2025-03-20 15:03 | Outpatient (AMB) | payer OTHER, SELFPAY ==
--- NOTE | 2025-03-20 15:14 | A.OFFVIS_ITS ---
Vital Signs 03/20/25 15:19 Height 5 ft 2 in Weight 147 lb BMI 26.9 Intake Visit Reasons: PO RT thumb trigger 03/05/25 AR Intake Note: Zo 49 yr old female presents today for her p/o visit for her right thumb trigger release from DOS 03/05/[address] Reddy. States locking has improved. Sutures removed and steri strips applied. States she is experiencing mild discomfort at base of thumb that has been present prior to surgery, denies injury. Allergies No Known Allergies Allergy (Verified 03/20/25 15:18) HPI HPI PO RT thumb trigger 03/05/25 AR: Details: Zo is a 49 year old right hand dominant Romanian speaking woman who returns S/p right trigger thumb release, DOS: 03/05/25. She is here wit her daughter, who acts as a quality assurance auditor. She says she is doing well and no longer has any locking or catching. She also complains of right radial sided wrist pain. She says this has been present for ~5 months. 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 [facility] Medical History (Updated 03/20/25 @ 15:36 by Vince Gupta) Hypertension Surgical History Hx of hernia repair Social History Alcohol intake: never Patient Tobacco Use Status: Never used Tobacco Current occupational status: employed Current occupation: right handed / BIOMETRIC TECHNICIAN Review of Systems Const All systems reviewed & are unremarkable except as noted in HPI and below Physical Exam Vital Signs: BMI result Body Mass Index 26.9 Const General: no acute distress and alert Orientation/consciousness: patient oriented x3 Neuro General: patient oriented x3 Extrem Other: The patient was alert oriented and in no acute distress The incision is healing well with no erythema drainage or evidence of infection. Sutures removed and Steri-Strips applied She can make a fist and extend all her digits No locking or catching Positive Carlos test on the right Tender over the 1st dorsal compartment. These are new findings Sensation is intact Cap refill is brisk Psych Appearance: grossly normal Affect: normal affect Attitude: cooperative Assessment & Plan Assessment & Plan (1) Trigger finger of right thumb: Code(s): M65.311 - Trigger thumb, right thumb Category: Medical (2) De Quervain's tenosynovitis, right: Code(s): M65.4 - Radial styloid tenosynovitis [de Quervain] Category: Medical Plan Assessment & Plan: 1. 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 She was given a note for work to remain out of work for the next 2 weeks. She should return to full duty effective 04/03/25 2. Right De Quervain's tenosynovitis Positive Carlos test this is a new complaint today I educated her about this condition I discussed treatment options I recommend activity modification at this time She may benefit from an injection & bracing, however she is still recovering from surgery at this time and this may impact wound healing I discussed activity modification, they should limit or avoid any heavy or repetitive pinching or gripping activities She should work on ROM exercises, and avoid any gripping or strengthening activities She will follow up in 4-6 weeks to see how she is doing. If she continues to have pain we can consider a steroid injection Scribed for Meche Reddy MD by Vince Gupta, medical certification specialist, on 03/20/25 at 3:20 PM, EST. Coding Level of Care Code Est Pt Level 3 (45745) Diagnoses Trigger finger of right thumb M65.311 De Quervain's tenosynovitis, right M65.4
[2025-03-20 15:19] VITALS: BMI 26.9
--- OUTSIDE RECORDS SUMMARY | 2025-03-20 16:04 | XMS_ITS | Encounter Summary ---
Author Organization [employer] Address [address] [facility] 7[address] [place] [address] Care Team Providers Care Shoulder Puncher Name Role Phone Everardo Dixon MD Primary Care Prov ider Levy Diallo MD Unavailable [phone]- [phone] Encounter Details Date Type Department Care Team (Late st Contact Info) Description 02/13/2025 Orders Only [facility] [address] [place], [place] [phone] ProviderTonya MD Social History Tobacco Use Types Packs/Day Years Used Date Smoking Tobacco: Never Smokeless Tobacco: Never Alcohol Use Standard Drinks/Week Comments Never 0 (1 standard drink = 0.6 oz pur e alcohol) Depression Answer Date Recorded Patient Health Questionnaire-9 Score 0 02/11/2023 Housing Stability Answer Date Recorded What is your housing situation today? I have magaliemarkell corley 12/12/[address] you [...] Info) Description 04/18/2025 11:30 AM EDT Telemedicine [facility] [address] [place] [address] Everardo Dixon MD [address] [place] [address] documented as of this encounter Procedures Procedure [...] documented as of this encounter Care Teams Shoulder Puncher Relationship Specialty Start Date End Date Everardo Dixon MD [address] [place] [address] PCP - General Internal Medicine 04/13/20 Levy Diallo MD [address] [place] [address] Referring Physician Internal Medicine 07/02/24 documented as of this encounter
--- OUTSIDE RECORDS SUMMARY | 2025-03-20 16:04 | XMS_ITS | Clinical Summary ---
Author Organization [employer] Address [address] [facility] 7t [place] [address] Care Team Providers Care Disabilities Services Officer Name Role Phone Everardo Dixon MD Primary Care Prov ider Levy Diallo MD Unavailable [phone]- [phone] Allergies No known active allergies Medications Blood [...] Type Department Care Team Description 02/18/2025 Telephone [facility] [address] [facility] [place] [address] Everardo Dixon MD 02/13/2025 Orders Only [facility] [address] [facility] [address] ProviderTonya MD 01/16/2025 10:15 AM EST Telemedicine [facility] [address] [facility] [place] [address] Everardo Dixon MD Primary hypertension 01/16/2025 Travel 01/15/2025 Telephone [facility] [address] [place] [address] Everardo Dixon MD chart prep from Last 3 Months Immunizations Name Administration [...] Upcoming Encounters Date Type Department Care Team ([facility] st Contact Info) Description 04/18/2025 11:30 AM EDT Telemedicine [facility] [address] [place], [place] [phone] Everardo Dixon MD [address] [place] [phone] Health Maintenance Due Date Last Done Comments [...] this topic Meningococcal Vaccine Aged Out No sctoty rober eligible based on patient's age to [...] Free T4 1.58 0.32 - 4.0 uIU/mL [facility] Blood Venous blood specimen / Unknown 01/01/2025 9:35 AM EST 01/01/2025 2:14 PM EST Everardo Devi MD LAB BLOOD ORDERABL ES Final Result [facility] [address] [place] [address] [phone] * CBC auto differential (01/01/2025 9:35 AM EST) White Blood Count 4.8 4.8 - 10.8 X10*3/uL [facility] Red Blood Count 4.29 4.20 - 5.50 X10*6/uL [facility] Hemoglobin 12.9 12.0 - 16.0 g/dl [facility] Hematocrit 38.5 37.0 - 47.0 % [facility] Mean Corpuscular Volume 89.7 80.0 - 98.0 fL [facility] Mean Corpuscular Hemoglobin 30.1 27.0 - 33.0 pg [facility] Mean Corpuscular HGB Conc 33.5 31.0 - 35.0 g/dl [facility] Red Cell Distribution Width 12.5 11.0 - 16.0 % [facility] Platelet Count 291 160 - 400 X10*3/uL [facility] Mean Platelet Volume 10.2 9.4 - 12.3 fL [facility] Neutrophils Percent Auto 53.1 45 - 73 % [facility] Imm Gran Pct Auto 0.2 0.0 - 0.4 % [facility] Lymphocytes Percent Auto 35.8 20 - 40 % [facility] Monocytes Percent Auto 8.8 2 - 11 % [facility] Eosinophils Percent Auto 1.5 0 - 4 % [facility] Basophils Percent Auto 0.6 0 - 2 % [facility] NRBC Pct Auto 0.0 0.0 - 0.2 /100WBC [facility] Neutrophils Absolute Auto 2.5 2.0 - 8.3 x10*3/uL [facility] Imm Gran Abs Auto 0.01 0.00 - 0.03 X10*3/uL [facility] Lymphocytes Absolute Auto 1.7 1.2 - 4.9 X10*3/uL [facility] Monocytes Absolute Auto 0.4 0.1 - 1.2 X10*3/uL [facility] Eosinophils Absolute Auto 0.1 0.0 - 0.4 X10*3/uL [facility] Basophils Absolute Auto 0.0 0.0 - 0.2 X10*3/uL [facility] NRBC Abs Auto 0.000 0.0 - 0.012 X10*3/uL [facility] Blood Venous blood specimen / Unknown 01/01/2025 9:35 AM EST 01/01/2025 2:12 PM EST us Everardo Devi MD LAB BLOOD ORDERABL ES Final Result [facility] [address] [place] [phone] * Hemoglobin A1c (01/01/2025 9:35 AM EST) Hemoglobin A1c 5.3 <6.0 % [facility] Comment:Hemoglobin A1C Refer ence Range Adults: 4.8 - 6.0 % Non diabetic: < 6.0 % Goal: < 7.0 %Additional Action Suggested: > 8.0 %Note: Hemoglobin A1c results are invalid for patients with abnormal amounts of HbF. Blood transfusions may impact the HbA1c concentration in the patient sample. Estimated Average Glucose 105 mg/dL [facility] Comment:eAG = Estimated ave rage glucose which is %A1C expressed asaverage glucose, using the formula of the X4C-EwsuhlpRwvkuoo Glucose study (ADAG), Diabetes Care, Vol.31,#8,Jun. 2007 Blood Venous blood specimen / Unknown 01/01/2025 9:35 AM EST 01/01/2025 2:12 PM EST Everardo Devi MD LAB BLOOD ORDERABL ES Final Result Performing Organization Address City/[facility]/ZIP Co de Phone Number [facility] [address] [place] [phone] * Lipid Panel, Standard (01/01/2025 9:35 AM EST) Triglycerides 72 <150 mg/dL [facility] Comment:Desirable Triglyceri de: less than 150 mg/dLBorderline High Triglyceride 150-199 mg/dLHigh Triglyceride: 200-499 mg/dLVery High Triglyceride: greater than or equal to 5OO mg/dL Cholesterol 162 <200 mg/dL [facility] Comment:Desirable Cholestero l: less than 200 mg/dLBorderline High Cholesterol: 200-239 mg/dLHigh Cholesterol: greater than 239 mg/dL LDL Cholesterol Calculated 97 <100 mg/dL [facility] Comment:Desirable LDL: less than 100 mg/dLNear Optimal/Above Optimal LDL: 110- 129 mg/dLBorderline High LDL: 130-159 mg/dLHigh LDL: 160-189 mg/dLVery High LDL: greater than or equal to 190 mg/dL HDL Cholesterol 51 >40 mg/dL [facility] Comment:Desirable HDL: great er than 40 mg/dL Note: This HDL assay may give artificially low results in patients with liver disease. Blood Venous blood specimen / Unknown 01/01/2025 9:35 AM EST 01/01/2025 2:14 PM EST us Everardo Devi MD LAB BLOOD ORDERABL ES Final Result Performing Organization Address City/[facility]/ZIP Co de Phone Number [facility] [address] [place] [phone] * (ABNORMAL) Comprehensive Metabolic Panel (01/01/2025 9:35 AM EST) Sodium 144 135 - 145 mmol/L [facility] Potassium 3.6 3.3 - 5.1 mmol/L [facility] Chloride 107 96 - 108 mmol/L [facility] Carbon Dioxide 29 22 - 29 mmol/L [facility] Anion Gap 12 12 - 20 [facility] Urea Nitrogen (BUN) 11 9 - 16 mg/dL [facility] Creatinine, Serum 0.71 0.5 - 1.4 mg/dL [facility] Estimated Glomerular Filt Rate >60 [facility] Comment:Chronic Kidney Disea se: Estimated GFR < 60 mL/min/[id number] Kidney Disease: Estimated GFR < 15 mL/min/1.73m2 Glucose 100 60 - 115 mg/dL [facility] Calcium 10.1 8.4 - 10.2 mg/dL [facility] Bilirubin, Total 1.1(H) 0.0 - 1.0 mg/dL [facility] Aspartate Amino Transferase 31 5 - 31 U/L [facility] Alanine Aminotransferase 20 0 - 31 U/L [facility] Total Protein 7.9 6.5 - 8.0 g/dL [facility] Albumin Level 4.2 3.5 - 5.0 g/dL [facility] Alkaline Phosphatase 90 39 - 117 U/L [facility] Blood Venous blood specimen / Unknown 01/01/2025 9:35 AM EST 01/01/2025 2:14 PM EST us Everardo Devi MD LAB BLOOD ORDERABL ES Final Result [facility] [address] [place] [phone] [phone] * BI Mammogram Screening Tomosynthesis Bilateral (10/20/2024 7:58 AM EST) Anatomical Region Laterality Modality Breast Bilateral Mammography 10/20/2024 7:58 AM EST Narrative 10/25/2024 1:58 PM EST ? [facility] ? [address] ?[place] [address] ? Mammography Report ? Signed ? Patient: Sawant,Zo ?MR#: [id number] ? : 1975 ?Acct:[id number] ? Age/Sex: 49 / F ?ADM Date: 10/20/24 ? Loc: HO.MAMMO ? Attending Dr: Everardo Devi MD ? Ordering Physician: Everardo Dixon MD ?Res ?? ults: 1Negative ? Date of Service: 10/20/24 ?Follow Up: 1 Year From Orig ?? inal Mammogram ? Procedure(s): MM tomosynthesis screening BI ?? Accession Number(s): [id number] ? cc: Everardo Dixon MD ? EXAMINATION: [...] Claudette Blackwell, DO in OV> ? 10/25/24 4126 ? DD/ 0758 ? TD/TT: 10/20/24 0813 ? Physician Gynecologist: ? Procedure Note Dontyreeter, Image - 10/26/2024 [facility] [address] [place] [address] Mammography Report Signed Patient: Humza Sawant#: [id number] : 1975Acct:[id number] Age/Sex: 49 / FADM Date: 10/20/24 Loc: HO.MAMMO Attending Dr: Everardo Devi MD Ordering Physician: Everardo Dixon ults: 1Negative Date of Service: 10/20/24Follow Up: 1 Year From Orig inal Mammogram Procedure(s): MM tomosynthesis screening BI Accession Number(s): [id number] cc: Everardo Dixon MD EXAMINATION: MM SCREENING [...] DO 10/25/2024 01:56 PM [facility] Dictated By: Claudette Blackwell DO Signed By: <Electronically signed by Claudette Blackwell DO in OV> 10/25/24 1356 DD/ 0758 TD/TT: 10/20/24 0813 Physician Gynecologist: Everardo Devi MD IMG BI PROCEDURES Edited Result - Final * Hepatitis C Antibody with Reflex to HCV, RNA, Quantitative, Real-Time PCR (03/24/2023 9:54 AM EDT) Hepatitis C Antibody NON-REACT STEVEN NON-REACT STEVEN [employer] Index 0.18 <1.00 [employer] Comment: HCV antibody was non-reactive. There is no laboratory evidence of HCV infection. In most cases, no further action is required. However, if recent HCV exposure is suspected, a test for HCV RNA (test code 38195) is suggested. For additional information please refer to http://education.[employer]/faq/EQR75x1 (This link is being provided for informational/ educational purposes only.) Blood Venous blood specimen / Unknown 03/24/2023 9:54 AM EDT 03/24/2023 9:55 AM EDT Narrative [facility] - 03/25/2023 2:47 AM EDT FASTING:YES FASTING: YES Everardo Devi MD LAB BLOOD ORDERABL ES Final Result [address], [place] [address] [employer] [address] [place] [phone] * THINPREP PAP (04/07/2021 10:38 AM EDT) [...] historic and ?? current clinical information. ?? [employer] : SEE COMMENT [facility] Comment: DMM, CT(ASCP) CT screening location: [address] ??[address] Interpretation/R esult: Negative for intraepithelial lesion or malignancy. [facility] LMP: NONE GIVEN [facility] Prev. BX: NONE [facility]IV[facility] Prev. PAP: NONE [facility]IV[facility] SOURCE: None given [facility] Statement Of Adequacy: [facility] Comment: Satisfactory for evaluation. Endocervical/transformation zone component present. Age and/or menstrual status not provided 04/07/2021 10:3 8 AM EDT [facility] PATHOLOGY ORDERABLES Final Result [facility] [address] * HPV mRNA E6/E7 (04/07/2021 10:38 AM EDT) HPV nRNA E6/E7 Not Detected Not Detected [facility] Comment: Methodology: Pourer-Mediated Amplification This assay detects E6/E7 viral messenger RNA (mRNA) from 14 high-risk HPV types (16,18,31,33,35,39,45,51,52,56,58,59,66,68). ? The analytical performance characteristics of this assay have been determined by [facility]. The modifications have not been cleared or approved by the FDA. This assay has been validated pursuant to the CLIA regulations and is used for clinical purposes. ?? For additional information, please refer to http://education.[employer]faq/DHG738y8 (This link if provided for information/ educational purposes only.) 04/07/2021 10:3 8 AM EDT [facility] LAB BLOOD ORDERABLES Charu l Result Performing Organization Address [facility] de Phone Number [facility] [address] * HIV AB/AG (12/04/2019 2:49 PM EST) [facility] HIV AG/AB NONREACTIVE NR [facility] [...] detection of this assay. ?? [employer] HIV Ag/Ab Combo assay result and supplemental assay results should be interpreted in conjunction with the patient's clinical presentation, history and other laboratory results. ??If the results are inconsistent with clinical evidence, additional testing is suggested to confirm the result. 12/04/2019 2:49 PM EST Historical Provider MD HISTORICAL/NON ORDERABLE LABS Final Result Performing Organization Address [facility] de Phone Number [facility] [address] from Last 3 Months or Most Recently Relevant to Health Maintenance Insurance [facility] HMO SNP Care Teams Disabilities Services Officer Relationship Specialty Start Date End Date Everardo Dixon MD [address] [place] [phone] PCP - General Internal Medicine 04/13/20 Levy Diallo MD [address] [place] [address] Referring Physician Internal Medicine 07/02/24
--- OUTSIDE RECORDS SUMMARY | 2025-03-20 16:04 | XMS_ITS | Clinical Summary ---
Author Organization [facility] ity Address [address] [place] [address] Care Team Providers Care Apprentice Stylist Name Role Phone Levy Lema MD Primary [...] - 2023-2 5 season) 2024 Influenza Vaccine (Season Ended) 2025 HIB Vaccines Aged Out No longer eligi [...] age to complete this topic Care Teams Apprentice Stylist Relationship Specialty Start Date End Date Levy Lema MD [address] [place] [address] [place] [phone] PCP - General Internal Medicine 03/09/21
--- OUTSIDE RECORDS SUMMARY | 2025-03-20 16:05 | XMS_ITS | Continuity of Care Document ---
Author Organization [facility] Address [address] [place] [address] Phone Care Team Providers Care Cancer Registry Coordinator Name Role Phone Alli CABRAL, RVT, ROSA, Tushar Unavailable U navailable Allergies, Adverse Reactions, Alerts Substance Reaction Status Criticality No Known Allergies Active No Inform ation Procedures Procedure Date Duplex Scan-extrem Veins; Uni/ CT & MA A Ultrason Guidan Needle Bx-rad- CT & MA A Inj Sclerosing Solution; Sngl- CT & MA A Office/Outpt E&M Established 25 Mins- CT & [place] Duplex Scan-extrem Veins; Comp- CT & MA Duplex Scan-extrem Veins; Uni/ CT & MA M Ultrason Guidan Needle Bx-rad- CT & MA M Inj Sclerosing Solution; Sngl- CT & MA M Duplex Scan-extrem Veins; Uni/ CT & [place] M Duplex Scan-extrem Veins; Uni/ CT & MA M Ultrason Guidan Needle Bx-rad- CT & MA M Inj Sclerosing Solution; Sngl- CT & MA M Endovenous Laser, 1st Vein- CT & MA Ultrason Guidan Needle Bx-rad- CT & MA F Inj Sclerosing Solution; Sngl- CT & MA F Offic/outpt E&m Estab 5 Min Trial- Telem edicine CT & MA Offic Cons New/estab Mod 40 Mi- CT & [place] Surgical Stockings CVR Reveal Thigh High -30 Duplex Scan-extrem Veins; Comp- CT & [place] Advance Directives Directive Yes / No Effective Date File Name No Information Encounters Encounter Description Practice Location Reason(s) For Visit Diagnoses Date Provider Providers Copied on Encounter [facility], [address] [place] [address] Dr Thomas 1000[address], [id number], [place] tel:[phone] CVR - [facility] Encounter for follow-up examination after completed treatment for conditions other than malignant neoplasmPain in left lower leg 5 Alli CABRAL RVT, ROSA Finley. [address] [place] [address], [place], [place], [id number], [place]. tel:[phone] Referring Provider: Everardo Devi, [address] [place] [address], [address]. tel:[phone] [facility] LITTLEJOHN, [address] [place] [address] Dr Thomas [address] 1000[place], [id number], [place] tel:[phone] CVR [facility] Varicose veins of left lower extremity with other complication s 5 Alli CABRAL RVT, ROSA Finley. [address] [place] [address], [place], [place], [id number], [place]. tel:[phone] Referring Provider: Everardo Devi, [address] [place] [address], [address]. tel:[phone] Office/Outpt E&M Established 25 Mins- CT & [place] [facility]OHN, [address] [place] [address] Dr Thomas [address] 1000[place], [id number], [place] tel:[phone] CVR [facility] Chronic venous hypertension (idiopathic) with other complication s of bilateral lower extremityCra mp and spasmPruritu s, unspecifiedE ssential (primary) hypertension 5 Alli CABRAL RVT, ROSA Finley. [address] [place] [address], [place], [place], [id number], [place]. tel:[phone] Referring Provider: Everardo Devi, [address] [place] [address], [address]. tel:[phone] [facility], [address] [place] [address] Dr Thomas [address] 1000[place], [id number], [place] tel:[phone] CVR - [facility] Chronic venous hypertension (idiopathic) with other complication s of bilateral lower extremity Apr-0 5 Alli CABRAL, BH[place], ROSA Finley. [address] [place] [address], [place], [place], [id number], [place]. tel:[phone] Referring Provider: Everardo Devi, [address] [place] [address], [address]. tel:[phone] [facility], [address] [place] [address] [facility] [address] [address], [id number], [place] tel:[phone] CVR - [facility] Encounter for follow-up examination after completed treatment for conditions other than malignant neVaricose veins of left lower extremity with pain Jan- 5 Alli CABRAL RVT, ROSA Finley. [address] [place] [address], [place] [address], [place], [place], [id number], [place]. tel:[phone] Referring Provider: Everardo Devi, [address] [place] [address], [address]. [phone] [facility], [address] [place] [address] Dr Thomas 1000[address] 1000[place], [id number], [place] tel:[phone] CVR - [facility] Varicose veins of left lower extremity with other complication s Jan- 5 Melanie Yuen. [facility], [place] [address], [place], [place], [id number], [place]. tel:[phone] Referring Provider: Levy Mantilla MD, [address], [place], [address]. tel:[phone] [facility], [address] [place] [address] Dr Thomas 1000Suite [place], [id number], [place] tel:[phone] CVR - [facility] Encounter for follow-up examination after completed treatment for conditions other than malignant neoplasmChro robert venous hypertension (idiopathic) with other complication s of right lower extremity Jan- 5 Radha Romeo. [address] [facility], [address], [place], [place], [id number], [place]. tel:[phone] Referring Provider: Levy Mantilla MD, [address], [place], [address]. tel:[phone] [facility], [address] [place] [address] Dr Thomas [address] 1000[place], [id number], [place] tel:[phone] CVR - [facility] Encounter for follow-up examination after completed treatment for conditions other than malignant neoplasmVari cose veins of right lower extremity with pain Jan-0 5 Alli CABRAL, RVT, RPVI Tushar. [address] [address], [place], [place], [id number], [place]. tel:[phone] Referring Provider: Levy Mantilla MD, [address], [place], [address]. tel:[phone] [facility], [address] [place] [address] Dr Thomas 1000Suite [place], [id number], [place] tel:[phone] CVR [facility] Varicose veins of right lower extremity with other complication s Jan-0 5 Melanie Yuen. [address] [facility] [address], [place], [place], [id number], [place]. tel:[phone] Referring Provider: Levy Mantilla MD, [address], [place], [address]. tel:[phone] [facility], [address] [place] [address] Dr Thomas 1000Suite [place], [id number], [place] tel:[phone] [facility] venous hypertension (idiopathic) with inflammation of right lower extremity 5 Alli CABRAL RVT, ROSA Finley. [address] [place] [address], [place], [place], [id number], [place]. tel:[phone] Referring Provider: Levy Mantilla MD, [address], [place], [address]. tel:[phone] [facility], [address] [place] [address] Dr Thomas 1000SuMaco [place]ell [place], [id number], [place] tel:[phone] [facility] No Information 5 Alli CABRAL RVT, ROSA Finley. [address] [place] [address], [place], [place], [id number], [place]. tel:[phone] Offic/outpt E&m Estab 5 Min Trial- Telemedicine CT & [place] [facility], [address] [place] [address] Dr Thomas 1000SuMaco [place]ell [place], [id number], [place] tel:[phone] [facility] Chronic venous hypertension (idiopathic) with other complication s of bilateral lower extremityCra mp and spasmPruritu s, unspecifiedE ssential (primary) hypertension 5 Alli CABRAL RVT, ROSA Finley. [address] [place] [address], [place], [place], [id number], [place]. tel:[phone] Referring Provider: Everardo Devi, [address] [place], [address]. tel:[phone] Offic Cons New/estab Mod 40 Mi- CT & [place] [facility], [address] [place] [address] Dr Thomas 1000SuMaco [place]ell [place], [id number], [place] tel:[phone] [facility] Cramp and spasmLocaliz ed edemaChronic venous hypertension (idiopathic) with other complication s of bilateral lower extremityEss ential (primary) hypertension Venous insufficienc y (chronic) (peripheral) Pruritus, unspecified Nov-0 4 Alli CABRAL RVT, ROSA Finley. [address] [facility], [address], [facility] [place], [id number], [place]. tel:[phone] Referring Provider: Levy Mantilla MD, [address], [place], [address]. tel:[phone] [facility], [address], [place], [id number], tel:[phone] [facility] Varicose veins of bilateral lower extremities with pain 4 Alli CABRAL RVT, ROSA Finley. [address] [facility], [address], [facility] [place], [id number], [place]. tel:[phone] Referring Provider: Levy Mantilla MD, [address], [place], [address]. tel:[phone] Family History Family Member Type Diagnosis Age At Onset No Information Payers Payer name Insurance type Covered democrat ID Merry everett(s) [facility] [employer] CI [id number] Social History Type Description Quantity Date Captured Comments Sex Female Smoking Status No Information Chief Complaint And Reason For Visit No Information Reason For Referral Reason For Referral No Information Plan Of Treatment Date Type Action Status Goal Diet education completed Goal Diet education completed Referral Ordered: Weight management: Referral to physician timeframe: 3 Months (related to Body mass index (BMI) 25.0-25.9, adult) ordered Referral Ordered: Weight management: Referral to physician [...] with other complications of bilateral lower extremity Patient education booklet given Related to Chronic [...]
== END 2025-03-20 15:48 | disposition home or self-care (01) ==
LOC: HO.HOS 15:03
PROVIDERS: PCP Internal Medicine; Visit Provider Orthopaedic Surgery
DX: M65.311 Trigger thumb, right thumb (principal); M65.4 Radial styloid tenosynovitis [de Quervain]
CPT/HCPCS: 99024

== ENCOUNTER → 2025-03-20 15:03 | Outpatient (BNVA) | payer OTHER, SELFPAY | PROVIDERS: PCP Internal Medicine; Visit Provider Orthopaedic Surgery | DX: M65.311 Trigger thumb, right thumb (principal); M65.4 Radial styloid tenosynovitis [de Quervain] | CPT/HCPCS: 99212 ==

== ENCOUNTER 2025-04-24 14:40 | Outpatient (AMB) | payer OTHER, SELFPAY ==
[2025-04-24 14:49] VITALS: BMI 26.9
--- NOTE | 2025-04-24 14:49 | MHC.OFFVIS ---
Vital Signs 04/24/25 14:49 Height 5 ft 2 in Weight 147 lb BMI 26.9 Intake Visit Reasons: Newprob-DeQuervain's right hand Intake Note: Zo 49 yr old female presents today for a new problem visit for her right hand DeQuervain's. Patient has hx of right thumb trigger release from DOS 03/05/[address] Reddy. At her last visit patient mentioned she also complained of right radial sided wrist pain that has been present for ~5 months. 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 She would like to discuss injection and bracing. Plastic Molding Operator Name: Eloisa MIDDLETON/SAÚL Allergies No Known Allergies Allergy (Verified 04/24/25 14:50) HPI HPI Newprob-DeQuervain's right hand: Details: Zo is a 49 year old right hand dominant Japanese speaking woman who returns to discuss her right De Quervain's tenosynovitis. She is here with her daughter, who acts as a continuous weld pipe mill supervisor. She complains of right radial sided wrist pain. She says this has been present for ~6 months. She is S/P right trigger thumb release, DOS: 03/05/25. She is doing well with no locking or catching. 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 [facility] Medical History (Updated 03/20/25 @ 15:36 by Vince Gupta) Hypertension Surgical History Hx of hernia repair Social History Alcohol intake: never Patient Tobacco Use Status: Never used Tobacco Current occupational status: employed Current occupation: right handed / FLY FRAME TENDER Review of Systems Const All systems reviewed & are unremarkable except as noted in HPI and below Physical Exam Vital Signs: BMI result Body Mass Index 26.9 Const General: no acute distress and alert Orientation/consciousness: patient oriented x3 Neuro General: patient oriented x3 Extrem Other: Evaluation of Right Upper Extremity: The patient is alert, oriented, and in no acute distress Neuro: Median, Ulnar, Radial nerves motor and sensory intact and sensation is normal to the tips of all digits Vascular: Cap refill brisk ROM: She can make a fist and extend all her digits No locking or catching Positive Carlos test on the right Negative Carlos test on the left Tender over the 1st dorsal compartment. Psych Appearance: grossly normal Affect: normal affect Attitude: cooperative Office Procedures AMB Fracture Care Details: No fracture, injection Fracture Billing Code: Fracture Billing Code Assessment & Plan Assessment & Plan (1) De Quervain's tenosynovitis, right: Code(s): M65.4 - Radial styloid tenosynovitis [de Quervain] Category: Medical Plan Assessment & Plan: 1. Right De Quervain's tenosynovitis Positive Carlos test This is a new complaint today I educated her about this condition I discussed operative and non-operative treatment options The patient would like to proceed with an injection I discussed activity modification, they should limit or avoid any heavy or repetitive pinching or gripping activities She was fitted for a comfort cool brace to wear with daily activity She should work on ROM exercises, and avoid any gripping or strengthening activities I discussed the use of assistive devices for daily activity Injection #1: The risks and benefits of a steroid injection including but not limited to risk of damage to blood vessels, nerves, tendons, infection, skin bleaching, failure to improve symptoms, increased pain, and possible need for further injections or other intervention were discussed with the patient and the patient wishes to proceed with the steroid injection. Once consent was obtained, I sterilely prepped the area over the 1st dorsal compartment of the Right thumb. I then injected the 1st dorsal compartment with a combination of 1 mL of dexamethasone (4mg/ml), and 1% lidocaine. The patient tolerated the procedure well with no complications and good resolution of their symptoms prior to leaving clinic. If the patient continues to have pain 6-8 weeks following this injection, they may call to schedule appointment to discuss alternative treatment options She will follow up prn 2. Right trigger thumb, S/P release DOS: 03/05/25 Doing well, no complaints Scribed for Meche Reddy MD by Vince Gupta, medical translator, on 04/24/25 at 3:00 PM, EST. Coding Level of Care Code Est Pt Level 3 (75654) Diagnoses De Quervain's tenosynovitis, right M65.4 CPT Codes Fracture Care - Fracture Billing Code: Fracture Billing Code ([id number])
--- OUTSIDE RECORDS SUMMARY | 2025-04-24 16:50 | XMS_ITS | Clinical Summary ---
Author Organization [employer] Address [address] [facility] 7[address] [place] [address] Care Team Providers Care Raise Miner Name Role Phone Everardo Dixon MD Primary Care Prov ider Levy Diallo MD Unavailable [phone] Allergies No known active allergies Medications Blood Pressure kit Active estradiol (Climara) 0.05 MG/24HR Place 1 patch on the skin 1 (one) time per week. 4 patch 11 07/02/2024 07/02/20 25 Active lisinopril-hydroC HLOROthiazide 20-25 MG tabletIndications :Primary hypertension Take 1 tablet by mouth Once per day. 90 tablet 3 01/16/2025 01/17/20 26 Active Blood Pressure kit 1 kit Once per day. 1 kit 04/18/2025 Active Active Problems Problem Noted Date Diagnosed [...] 09/12/2014 Primary hypertension 09/12/2014 Assessment & Plan (04/18/2025 12:05 PM EDT): Controlled last reading as follow 129/93-127/73-123/86-109/73 No changes will be made, keep low sodium diet and exercise as tolerated, keep bp log, follow up in 3 months Assessment & Plan (01/16/2025 10:43 AM EST): [...] Encounters Date Type Department Care Team Description 04/18/2025 11:30 AM EDT Telemedicine [facility] MED & PEDS [address] [place], [place] [phone] Everardo Dixon MD Primary hypertension (Primary Dx) 04/18/2025 Travel 04/10/2025 Orders Only [facility] [address] [place], [place] [phone] Tonya Alexander MD 02/18/2025 Telephone [facility] [address] [place], [place] [phone] Everardo Dixon MD 02/13/2025 Orders Only [facility] [address] [place], [place] [phone] ProviderTonya MD from Last 3 Months Immunizations Immunization Administration Dates Next Due Influenza Injectable Quadriv [...] Date Recorded Patient Health Questionnaire-9 Score 0 04/18/2025 Patient Health Questionnaire-9 Score 0 04/18/2025 Last PHQ-9: Questionnaire Data Not on file 0 04/18/2025 Housing Stability Answer Date Recorded What is [...] Date Recorded Patient Health Questionnaire-2 Score 0 04/18/2025 Internet Access Answer Date Recorded Internet Access [...] Sign Reading Time Taken Comments Blood Pressure 131/86 04/18/2025 11:33 AM EDT Pulse 65 04/18/2025 11:33 AM EDT Temperature 36.8 ??C (98.3 ??F) 12/19/2024 2:22 [...] Care Team (Late st Contact Info) Description 07/19/2025 10:30 AM EDT Telemedicine [facility] P[facility] [address] [place] [address] Everardo Dixon MD [address] [place] [address] Health Maintenance Due Date Last Done Comments CT Colonography 1973 FIT DNA/Cologuard 1973 FIT 1973 FOBT 1973 Sigmoidoscopy 1973 Disability Screening 1973 Family Planning (PISQ) 1988 Hepatitis B Vaccines (1 of 3 - 19+ 3-dose series) 1992 Pneumococcal Vaccine: 50+ Years (1 of 1 - PCV) 2023 Zoster Vaccines (1 of 2) 2023 COVID-19 Vaccine (3 - season) 2024 01/02/2022, 04/09/2021 Influenza Vaccine (Season Ended) 2025 09/24/2022, 08/25/2021, 10/02/2020, Additional history exists SDOH Screening 12/12/2025 12/12/2024 Tobacco Screening 12/19/2025 12/19/2024 Alcohol/Substance Use Screening 01/16/2026 01/16/2025 Cervical Cancer Screening 04/07/2026 HPV/Cotest 04/07/2026 04/07/2021 Pap Smear 04/07/2026 04/07/2021 Depression Screening 04/18/2026 04/18/2025, 04/18/20 25 Mammogram 10/20/2026 10/20/2024, 12/2022, 10/09/2022, Additional history [...] Associated Diagnosis Comments VASC US LOWER EXTREMITY ARTERIAL DUPLEX RIGHT Routine 04/09/2025 3:25 PM EDT VASC US LOWER EXTREMITY VENOUS DUPLEX LEFT Routine 02/12/2025 10:53 AM EDT LIPID PANEL, STANDARD Routine 01/01/2025 9:35 AM [...] Recently Relevant to Health Maintenance Results * Vascular US lower extremity arterial duplex right (04/09/2025 3:25 PM EDT) Historical Provider CV VASCULAR PROCEDURES Fi nal Result * VASC US LOWER EXTREMITY VENOUS DUPLEX LEFT (02/12/2025 10:53 AM EDT) Historical Provider CV VASCULAR PROCEDURES Ed ited Result - Final * Lipid Panel, Standard (01/01/2025 9:35 AM EST) Triglycerides 72 <150 mg/dL [facility] Comment:Desirable Triglyceri de: less than 150 mg/dLBorderline High Triglyceride 150-199 mg/dLHigh Triglyceride: 200-499 mg/dLVery High Triglyceride: greater than or equal to 5OO mg/dL Cholesterol 162 <200 mg/dL [facility] Comment:Desirable Cholestero l: less than 200 mg/dLBorderline High Cholesterol: 200-239 mg/dLHigh Cholesterol: greater than 239 mg/dL LDL Cholesterol Calculated 97 <100 mg/dL [facility] Comment:Desirable LDL: less than 100 mg/dLNear Optimal/Above Optimal LDL: 110- 129 mg/dLBorderline High LDL: 130-159 mg/dLHigh LDL: 160-189 mg/dLVery High LDL: greater than or equal to 190 mg/dL HDL Cholesterol 51 >40 mg/dL [facility] Comment:Desirable HDL: great er than 40 mg/dL Note: This HDL assay may give artificially low results in patients with liver disease. Blood Venous blood specimen / Unknown 01/01/2025 9:35 AM EST 01/01/2025 2:14 PM EST Everardo Devi MD LAB BLOOD ORDERABL ES Final Result [facility] [address] [place] [address] [phone] * BI Mammogram Screening Tomosynthesis Bilateral (10/20/2024 7:58 AM EST) Anatomical Region Laterality Modality Breast Bilateral Mammography 10/20/2024 7:58 AM EST Narrative 10/25/2024 1:58 PM EST ? [facility] ? [address] ?[place] [address] ? Mammography Report ? Signed ? Patient: Sawant,Zo ?MR#: [id number] ? : 1975 ?Acct:[id number] ? Age/Sex: 49 / F ?ADM Date: 10/20/24 ? Loc: HO.MAMMO ? Attending Dr: Everardo Devi MD ? Ordering Physician: Everardo Dixon MD ?Res ?? ults: 1Negative ? Date of Service: 10/20/24 ?Follow Up: 1 Year From Orig ?? inal Mammogram ? Procedure(s): MM tomosynthesis screening BI ?? Accession Number(s): [id number] ? cc: Everardo Dixon MD ? EXAMINATION: [...] ? DD/ 0758 ? TD/TT: 10/20/24812 ? Drawer Fitter: ? Procedure Note Donarelyjdcarlitater, Image - 10/26/2024 [place] [facility] [address] [place] [address] Mammography Report Signed Patient: Humza Sawant#: [id number] : 1975Acct:[id number] Age/Sex: 49 / FADM Date: 10/20/24 Loc: HO.MAMMO Attending Dr: Everardo Devi MD Ordering Physician: Everardo Dixon ults: 1Negative Date of Service: 10/20/24Follow Up: 1 Year From Orig inal Mammogram Procedure(s): MM tomosynthesis screening BI Accession Number(s): [id number] cc: Everardo Dixon MD EXAMINATION: MM SCREENING [...] by: Claudette Blackwell DO 10/25/2024 01:56 PM [facility] Dictated By: Claudette Blackwell DO Signed By: <Electronically signed by Claudette Blackwell DO in OV> 10/25/24 1356 DD/ 0758 TD/TT: 10/20/24 0813 Drawer Fitter: Everardo Devi MD IM BI PROCEDURES Edited Result - Final * Hepatitis C Antibody with Reflex to HCV, RNA, Quantitative, Real-Time PCR (03/24/2023 9:54 AM EDT) Hepatitis C Antibody NON-REACT STEVEN NON-REACT STEVEN [email or web address] [place] [facility] Index 0.18 <1.00 [email or web address] [place] [facility] Comment: HCV antibody was non-reactive. There is no laboratory evidence of HCV infection. In most cases, no further action is required. However, if recent HCV exposure is suspected, a test for HCV RNA (test code 18317) is suggested. For additional information please refer to http://education.Lumatic/faq/YPY57e3 (This link is being provided for informational/ educational purposes only.) Blood Venous blood specimen / Unknown 03/24/2023 9:54 AM EDT 03/24/2023 9:55 AM EDT Narrative [facility] - 03/25/2023 2:47 AM EDT FASTING:YES FASTING: YES Everardo Devi MD LAB BLOOD ORDERABL ES Final Result [facility] [address], [place] [address] [email or web address] [employer] [facility] [address] [place] [address] * THINPREP PAP (04/07/2021 10:38 AM EDT) [...] historic and ?? current clinical information. ?? Instructor Product Inspection : SEE COMMENT [facility] Comment: DMM, CT(ASCP) CT screening location: [address] ??[id number] Interpretation/R esult: Negative for intraepithelial lesion or [...] Hurley CNM LAB PATHOLOGY ORDERABLES Final Result [facility] [address] * HPV mRNA E6/E7 (04/07/2021 10:38 AM EDT) HPV nRNA E6/E7 Not Detected Not Detected [facility] Comment: Methodology: Incident Coordinator-Mediated Amplification This assay detects E6/E7 viral messenger RNA (mRNA) from 14 high-risk HPV types (16,18,31,33,35,39,45,51,52,56,58,59,66,68). ? The analytical performance characteristics of this assay have been determined by [email or web address]. The modifications have not been cleared or approved by the FDA. This assay has been validated pursuant to the CLIA regulations and is used for clinical purposes. ?? For additional information, please refer to http://education.Lumatic/faq/DMG318r6 (This link if provided for information/ educational purposes only.) 04/07/2021 10:3 8 AM EDT Dea ESPINAL LAB BLOOD ORDERABLES Charu l Result Performing Organization Address [facility] [address] * HIV AB/AG (12/04/2019 2:49 PM EST) [facility] HIV AG/AB NONREACTIVE NR [facility] [...] detection of this assay. ?? The [facility] Control Analyst HIV Ag/Ab Combo assay result and supplemental assay results should be interpreted in conjunction with the patient's clinical presentation, history and other laboratory results. ??If the results are inconsistent with clinical evidence, additional testing is suggested to confirm the result. 12/04/2019 2:49 PM EST Historical Provider MD HISTORICAL/NON ORDERABLE LABS Final Result Performing Organization Address [facility] [address] from Last 3 Months or Most Recently Relevant to Health Maintenance Insurance [facility] 3 Care Teams Raise Miner Relationship Specialty Start Date End Date Everardo Dixon MD [address] [place] [address] PCP - General Internal Medicine 04/13/20 Levy Diallo MD [address] [place] [address] Referring Physician Internal Medicine 07/02/24
== END 2025-04-24 15:30 | disposition home or self-care (01) ==
LOC: HO.HOS 14:40
PROVIDERS: PCP Internal Medicine; Visit Provider Orthopaedic Surgery
DX: M65.4 Radial styloid tenosynovitis [de Quervain] (principal)
CPT/HCPCS: 20550; 99213

== ENCOUNTER → 2025-04-24 14:40 | Outpatient (BNVA) | payer OTHER, SELFPAY | PROVIDERS: PCP Internal Medicine; Visit Provider Orthopaedic Surgery | DX: M65.4 Radial styloid tenosynovitis [de Quervain] (principal) | CPT/HCPCS: 99212; J1100; J2003 ==

== ENCOUNTER 2025-09-05 10:28 | Outpatient (REF) | payer OTHER, SELFPAY ==
--- OUTSIDE RECORDS SUMMARY | 2025-09-04 10:30 | XMS_ITS | Encounter Summary ---
Author Organization [employer] Address [address] [facility] [address] [place] [address] Care Team Providers Care Multisensor Intelligence Officer Name Role Phone Everardo Dixon MD Primary Care Prov ider Levy Diallo MD Unavailable [phone] Encounter Details Date Type Department Care Team ([facility] st Contact Info) Description 09/04/2025 10:30 AM EDT Office Visit [facility] CH[facility] MED & PEDS [address] [place], [place] [phone] Everardo Dixon MD [address] [place] [address] Primary hypertension (Primary Dx); Encounter for immunization Social History Tobacco Use Types Packs/Day Years [...] Sign Reading Time Taken Comments Blood Pressure 148/90 09/04/2025 11:13 AM EDT Pulse 70 09/04/2025 10:49 AM EDT Temperature 36.7 C (98 F) 09/04/2025 10:49 AM EDT Respiratory Rate 16 09/04/2025 10:49 AM EDT Oxygen Saturation - - Inhaled Oxygen Concentration - - Weight 64.4 kg (142 lb) 09/04/2025 10:49 AM EDT Height 157.5 cm (5' 2 ) 09/04/2025 10:49 AM EDT Body Mass Index 25.97 09/04/2025 10:49 AM EDT documented in this encounter Progress Notes * Everardo Devi MD - 09/04/2025 10:30 AM EDT Subjective Patient ID: Zo Sawant is a 50 y.o. female who presents for No chief complaint on file.. Hypertension This is a chronic problem. The problem is controlled. Pertinent negatives include no chest pain, headaches, palpitations or shortness of breath. Review of Systems Respiratory: Negative for shortness of breath. Cardiovascular: Negative for chest pain and palpitations. Neurological: Negative for headaches. Objective Physical Exam Constitutional: Appearance: Normal appearance. Cardiovascular: Rate and Rhythm: Normal rate. Heart sounds: No murmur heard. Pulmonary: Effort: Pulmonary effort is normal. No respiratory distress. Breath sounds: No stridor. No wheezing or rhonchi. Neurological: General: No focal deficit present. Mental Status: She is alert and oriented to person, place, and time. Psychiatric: Mood and Affect: Mood normal. Behavior: Behavior normal. Assessment/Plan Problem List Items Addressed This Visit Primary hypertension - Primary Elevated on today reading, refers at home has remained below 140/90, will follow up in 1 month Relevant Orders CBC auto differential Comprehensive Metabolic Panel Lipid Panel, Standard documented in this encounter Miscellaneous Notes * Assessment & Plan Note - Everardo Devi MD - 09/04/2025 11:30 AM EDTAssociated Problem(s): Primary hypertension Elevated on today reading, refers at home has remained below 140/90, will follow up in 1 month * Addendum Note - [place] Mantilla MA - 09/04/2025 10:30 AM EDTAddended by: FLORIDA MANTILLA on: 09/04/2025 11:42 AM Modules accepted: Orders documented in this encounter Plan of Treatment Scheduled Orders Name Type Priority Associated Diagnoses Orde r Schedule CBC auto differential Lab Routine Primary hypertension Expected: 09/04/2025 (Approximate), Expires: 09/04/2026 Comprehensive Metabolic Panel Lab Routine Primary hypertension Expected: 09/04/2025 (Approximate), Expires: 09/04/2026 Lipid Panel, Standard Lab Routine Primary hypertension Expected: 09/04/2025 (Approximate), Expires: 09/04/2026 documented as of this encounter Visit Diagnoses Diagnosis Primary hypertension- Primary Unspecified essential hypertension Encounter for immunization documented in this encounter Additional Health Concerns Assessment Noted Time PHQ-9 Depression Total Score: 0 04/18/20 25 11:09 AM EDT documented as of this encounter Care Teams Multisensor Intelligence Officer Relationship Specialty Start Date End Date Everardo Dixon MD [address] [place] [address] PCP - General Internal Medicine 04/13/20 Levy Diallo MD [address] [place] [address] Referring Physician Internal Medicine 07/02/24 documented as of this encounter
--- OUTSIDE RECORDS SUMMARY | 2025-09-05 12:38 | XMS_ITS | Encounter Summary ---
Author Organization [employer] Address [address] [facility] 7t [place] [address] Care Team Providers Care Kiln Setter Name Role Phone Everardo Dixon MD Primary Care Prov ider Levy Diallo MD Unavailable [phone] Encounter Details Date Type Department Care Team (Late st Contact Info) Description 02/13/2025 Orders Only [facility] [address] [place] [address] Provider, MD Tonya Social History Tobacco Use [...] as of this encounter Plan of Treatment Not on file documented as of this encounter Procedures Procedure Name Priority Date/Time Associated Diagnosis Comments VASC US LOWER EXTREMITY VENOUS DUPLEX LEFT Routine 02/12/2025 10:53 AM EDT documented in this encounter Results * VASC US LOWER EXTREMITY VENOUS DUPLEX LEFT (02/12/2025 10:53 AM EDT) us Historical Provider CV VASCULAR PROCEDURES Ed ited Result - Final documented in this encounter Visit Diagnoses Not on filedocumented in this encounter Additional Health Concerns Assessment Noted Time PHQ-9 Depression Total Score: 0 02/12/20 23 11:13 AM EDT documented as of this encounter Care Teams Kiln Setter Relationship Specialty Start Date End Date AlexanderEverardo Castano MD [address] [place] [address] PCP - General Internal Medicine 04/13/20 Levy Diallo MD [address] [place] [address] Referring Physician Internal Medicine 07/02/24 documented as of this encounter
--- OUTSIDE RECORDS SUMMARY | 2025-09-05 12:38 | XMS_ITS | Clinical Summary ---
Author Organization [facility] Address [address] [place] [address] Phone Care Team Providers Care Transportation Clerk Name Role Phone Levy Lema MD Primary Care Provi lola Allergies No known active allergies Encounters Date Type Department Care Team Description 06/14/2025 1:31 AM EDT - 06/14/2025 4:46 AM EDT Emergency [facility] Emergency [address] [place] [address] Discharge Disposition: Home or Self Care from Last 3 Months Medical History Medical History Date Comments Hypertension Social History Tobacco Use Types Packs/Day Years Used Date Smoking Tobacco: Never Smokeless Tobacco: Never Tobacco Cessation:Counseling Given: Not Answered Comments Unknown Sex and Gender Information Value Date Recorded Sex Assigned at Not on file Legal Sex Female 9:00 AM EST Gender Identity Not on file Sexual Orientation Not on file Obstetrics History Last Filed Vital Signs Vital Sign Reading Time Taken Comments Blood Pressure 192/102 06/14/2025 1:33 AM EDT Pulse 83 06/14/2025 1:33 AM EDT Temperature 36.3 C (97.3 F) 06/14/2025 1:33 AM EDT Respiratory Rate 18 06/14/2025 1:33 AM EDT Oxygen Saturation 100% 06/14/2025 1:33 AM EDT Inhaled Oxygen Concentration - - Weight 63.5 kg (140 lb) 06/14/2025 1:33 AM EDT Height 160 cm (5' 3 ) 06/14/2025 1:33 AM EDT Body Mass Index 24.8 06/14/2025 1:33 AM EDT Plan of Treatment Health Maintenance Due Date Last Done Comments Breast Cancer Screening 1973 Colorectal Cancer Screening: Colonoscopy 1973 Hepatitis B Vaccines (1 of 3 - 19+ 3-dose series) 1992 Cervical Cancer Screening: Pap Smear 1994 Pneumococcal Vaccine: 50+ Years (1 of 1 - PCV) 2023 Zoster Vaccines (1 of 2) 2023 Depression Screening 11/14/2024 HIV Screening 06/14/2025 Hypertension/CHF/CAD Annual BMP Blood Test 06/14/2025 Social Influencers of Health Screening 06/14/2025 COVID-19 Vaccine (3 - 2024- season) 2025 01/02/2022, 04/09/2021 Influenza Vaccine (#1) 2025 , 08/25/2021, 10/02/2020, Additional history exists Cholesterol Screening (Lipid Panel) 01/01/2030 01/01/2025 DTaP,Tdap,and Td Vaccines (3 - Td or Tdap) 03/24/2033 03/24/2023, 09/12/2014 RSV Immunization Adult Patients (1 - 1-dose 75+ series) 2048 Hepatitis C Screening Completed 03/24/2023 HIB Vaccines Aged Out No longer eligi [...] to complete this topic RSV Immunization Patients Under 20 months Aged Out No longer eligible based on patient's age to complete this topic Varicella Vaccines Aged Out No longer eligible based on patient's age to complete this topic Insurance [employer] Care Teams Transportation Clerk Relationship Specialty Start Date End Date Levy Lema MD [address] [place] [address] [place] [address] PCP - General Internal Medicine 03/09/21
--- OUTSIDE RECORDS SUMMARY | 2025-09-05 12:38 | XMS_ITS | Encounter Summary ---
Author Organization [employer] Address [address] [facility] [address] [place] [address] Care Team Providers Care Radiation Protection Engineer Name Role Phone Everardo Dixon MD Primary Care Prov ider Levy Diallo MD Unavailable [phone] Encounter Details Date Type Department Care Team (Latest Contact Info) Description 09/04/2025 Travel Social History Tobacco Use Types Packs/Day [...] on file documented as of this encounter Visit Diagnoses Not on filedocumented in this encounter Additional Health Concerns Assessment Noted Time PHQ-9 Depression Total Score: 0 04/18/20 25 11:09 AM EDT documented as of this encounter Care Teams Radiation Protection Engineer Relationship Specialty Start Date End Date Everardo Dixon MD [address] [place] [address] PCP - General Internal Medicine 04/13/20 Levy Diallo MD [address] [place] [address] Referring Physician Internal Medicine 07/02/24 documented as of this encounter
--- OUTSIDE RECORDS SUMMARY | 2025-09-05 12:38 | XMS_ITS | Clinical Summary ---
Author Organization [employer] Address [address] [place] [address] Care Team Providers Care Loading Dock Hand Name Role Phone Everardo Dixon MD Primary Care Prov ider Levy Diallo MD Unavailable [phone] Allergies No known active allergies Medications Blood Pressure kit Active estradiol (Climara) 0.05 MG/24HR Place 1 patch on the skin 1 (one) time per week. 4 patch 11 07/02/2024 Active lisinopril-hydroC HLOROthiazide 20-25 MG tabletIndications :Primary [...] 09/12/2014 Primary hypertension 09/12/2014 Assessment & Plan (09/04/2025 11:30 AM EDT): Elevated on today reading, refers at home has remained below 140/90, will follow up in 1 month Assessment & Plan (04/18/2025 12:05 PM EDT): [...] Encounters Date Type Department Care Team Description 09/04/2025 10:30 AM EDT Office Visit [facility] [address] [place] [address] Everardo Dixon MD Primary hypertension (Primary Dx); Encounter for immunization 09/04/2025 Travel 09/02/2025 Travel from Last 3 Months Immunizations Immunization Administration Dates Next Due Influenza Injectable Quadriv alant Preservative Free IIV4 MDCK 10/02/2020 Influenza injectable quadriv alent IIV4 with preservative 09/22/2015 Influenza injectable quadriv alent preservative free 09/24/2022,08/25/2021,12/04/2019,2016 Influenza, IIV3, injectable 08/22/2014 Influenza, Split (incl. aida fied surface antigen) 09/27/2012 Influenza, seasonal, injecta ble, preservative free 09/04/2025 Pfizer Covid-19 Vaccine 12+ rea-sucrose ([place] Cap) [...] 16 09/04/2025 10:49 AM EDT Oxygen Saturation 98% 03/12/2024 3:28 PM EDT Inhaled Oxygen Concentration - - Weight 64.4 kg (142 lb) 09/04/2025 10:49 AM EDT Height 157.5 cm (5' 2 ) 09/04/2025 10:49 AM EDT Body Mass Index 25.97 09/04/2025 10:49 AM EDT Plan of Treatment Health Maintenance Due Date Last Done Comments CT Colonography 1973 FIT DNA/Cologuard 1973 FIT 1973 FOBT 1975 Sigmoidoscopy 1973 Family Planning (PISQ) 1988 Hepatitis B Vaccines (1 of 3 - 19+ 3-dose series) 1992 Pneumococcal Vaccine: 50+ Years (1 of 1 - PCV) 2023 Zoster Vaccines (1 of 2) 2023 COVID-19 Vaccine (3 - season) 2025 01/02/2022, 04/09/2021 SDOH Screening 12/12/2025 12/12/2024 Tobacco Screening 12/19/2025 12/19/2024 Alcohol/Substance Use Screening 01/16/2026 01/16/2025 Cervical Cancer Screening 04/07/2026 HPV/Cotest 04/07/2026 04/07/2021 Pap Smear 04/07/2026 04/07/2021 Depression Screening 04/18/2026 04/18/2025, 04/18/20 Disability Screening 09/02/2026 09/02/2025 Mammogram 10/20/2026 10/20/2024, 12/2022, 10/09/2022, Additional history exists Lipid Panel 01/01/2030 01/01/2025, 1101/2023, 03/24/2023, Additional history exists Colonoscopy 06/28/2032 06/28/2022 Colorectal Cancer Screening 06/28/2032 DTaP/Tdap/Td Vaccines (3 - Td or Tdap) 03/24/2033 03/24/2023, 09/12/2014 RSV Patients and Patients Aged 60 years or older (1 - 1-dose 75+ series) 2048 HIV Screening Completed 12/04/2019 Hepatitis C Screening Completed 03/24/2023, 020 Influenza Vaccine Completed 09/04/2025, , 08/25/2021, Additional history exists HIB Vaccines Aged Out No longer eligi [...] Procedure Name Priority Date/Time Associated Diagnosis Comments LIPID PANEL, STANDARD Routine 01/01/2025 9:35 AM EST Primary hypertension BI MAMMOGRAM SCREENING TOMOSYNTHESIS BILATERAL Routine 10/20/2024 7:58 AM EST HEPATITIS C AB W/REFL TO HCV RNA, QN, PCR Routine 03/24/2023 9:54 AM EDT Primary hypertension HM COLONOSCOPY Routine 06/28/2022 HPV MRNA E6/E7 Routine 04/07/2021 10:38 AM EDT THINPREP PAP Routine 04/07/2021 10:38 AM EDT ZZZ HISTORICAL HIV AB/AG Routine 12/04/2019 2:49 PM EST from Last 3 Months or Most Recently Relevant to Health Maintenance Results * Lipid Panel, Standard (01/01/2025 9:35 AM EST) Triglycerides 72 <150 mg/dL [facility] Comment:Desirable Triglyceri de: less than 150 mg/dLBorderline High Triglyceride 150-199 mg/dLHigh Triglyceride: 200-499 mg/dLVery High Triglyceride: greater than or equal to 5OO mg/dL Cholesterol 162 <200 mg/dL [facility] Comment:Desirable Cholestero l: less than 200 mg/dLBorderline High Cholesterol: 200-239 mg/dLHigh Cholesterol: greater than 239 mg/dL LDL Cholesterol Calculated 97 <100 mg/dL [facility] Comment:Desirable LDL: less than 100 mg/dLNear Optimal/Above Optimal LDL: 110- 129 mg/dLBorderline High LDL: 130-159 mg/dLHigh LDL: 160-189 mg/dLVery High LDL: greater than or equal to 190 mg/dL HDL Cholesterol 51 >40 mg/dL [facility] Comment:Desirable HDL: great er than 40 mg/dL Note: This HDL assay may give artificially low results in patients with liver disease. Blood Venous blood specimen / Unknown 01/01/2025 9:35 AM EST 01/01/2025 2:14 PM EST Everardo Devi MD LAB BLOOD ORDERABL ES Final Result Performing Organization Address City/State/[facility] Co de Phone Number [facility] [address] [place] [phone] * BI Mammogram Screening Tomosynthesis Bilateral (10/20/2024 7:58 AM EST) Anatomical Region Laterality Modality Breast Bilateral Mammography 10/20/2024 7:58 AM EST Narrative 10/25/2024 1:58 PM EST [facility] [address] [place] [address] Mammography Report Signed Patient: Zo Sawant MR#: [id number] : 1975 Acct:[id number] Age/Sex: 49 / F ADM Date: 10/20/24 Loc: HO.MAMMO Attending Dr: Everardo Devi MD Ordering Physician: Everardo Dixon MD Res ults: 1Negative Date of Service: 10/20/24 Follow Up: 1 Year From Orig inal Mammogram Procedure(s): MM tomosynthesis screening BI Accession Number(s): [id number] cc: Everardo Dixon MD EXAMINATION: MM SCREENING [...] by: Claudette Blackwell DO 10/25/2024 01:56 PM [facility] Dictated By: Claudette Blackwell DO Signed By: <Electronically signed by Claudette Blackwell DO in OV> 10/25/24 1356 DD/ 0758 TD/TT: 10/20/24 0813 Corporate Scheduler: Procedure Note Donotuseinterpreter, Image - 10/26/2024 [facility] [address] [place] [address] Mammography Report Signed Patient: Humza Sawant#: [id number] : 1975Acct:[id number] Age/Sex: 49 / FADM Date: 10/20/24 Loc: HO.MAMMO Attending Dr: Everardo Devi MD Ordering Physician: Everardo Dixon ults: 1Negative Date of Service: 10/20/24Follow Up: 1 Year From Orig ina Mammogram Procedure(s): MM tomosynthesis screening BI Accession Number(s): [id number] cc: Everardo Dixon MD EXAMINATION: MM SCREENING [...] by: Claudette Blackwell DO 10/25/2024 01:56 PM [facility] Dictated By: Claudette Blackwell DO Signed By: <Electronically signed by Claudette Blackwell DO in OV> 10/25/24 1356 DD/ 0758 TD/TT: 10/20/24 0813 Corporate Scheduler: Everardo Devi MD IM BI PROCEDURES Edited Result - Final * Hepatitis C Antibody with Reflex to HCV, RNA, Quantitative, Real-Time PCR (03/24/2023 9:54 AM EDT) Hepatitis C Antibody NON-REACT STEVEN NON-REACT STEVEN [facility] Index 0.18 <1.00 [facility] Comment: HCV antibody was non-reactive. There is no laboratory evidence of HCV infection. In most cases, no further action is required. However, if recent HCV exposure is suspected, a test for HCV RNA (test code 60553) is suggested. For additional information please refer to http://education.IndyGeek/faq/GLN09w1 (This link is being provided for informational/ educational purposes only.) Blood Venous blood specimen / Unknown 03/24/2023 9:54 AM EDT 03/24/2023 9:55 AM EDT Narrative [facility] - 03/25/2023 2:47 AM EDT FASTING:YES FASTING: YES Everardo Devi MD LAB BLOOD ORDERABL ES Final Result [facility] [address] [facility], [place] [address] [facility] [address] [place] [address] * Colonoscopy (06/28/2022) Colonoscopy Normal Normal Narrative Allie Lund - 06/28/2022 Colonoscopy order added, results scanned in federal mediator Historical Provider MD HEALTH MAINTENANCE Final Result * THINPREP PAP (04/07/2021 10:38 AM EDT) Clinical Information: None given [facility] COMMENT SEE COMMENT [facility] Comment: EXPLANATORY NOTE: The Pap is a screening test for cervical cancer. It is not a diagnostic test and is subject to false negative and false positive results. It is most reliable when a satisfactory sample, regularly obtained, is submitted with relevant clinical findings and history, and when the Pap result is evaluated along with historic and current clinical information. [facility] : SEE COMMENT [facility] Comment: DMM, CT(ASCP) CT screening location: [address] [address] Interpretation/R esult: Negative for intraepithelial lesion or malignancy. [facility] LMP: NONE GIVEN [facility] Prev. BX: NONE GIVEN [facility] Prev. PAP: NONE GIVEN [facility] SOURCE: None given [facility] Statement Of Adequacy: SEE COMMENT [facility] Comment: Satisfactory for evaluation. Endocervical/transformation zone component present. Age and/or menstrual status not provided 04/07/2021 10:3 8 AM EDT us Dea Hurley CNM LAB PATHOLOGY ORDERABLES Final Result [facility] [address] * HPV mRNA E6/E7 (04/07/2021 10:38 AM EDT) HPV nRNA E6/E7 Not Detected Not Detected [facility] Comment: Methodology: Fiberglass Pipe Covering Supervisor-Mediated Amplification This assay detects E6/E7 viral messenger RNA (mRNA) from 14 high-risk HPV types (16,18,31,33,35,39,45,51,52,56,58,59,66,68). The analytical performance characteristics of this assay have been determined by [facility]. The modifications have not been cleared or approved by the FDA. This assay has been validated pursuant to the CLIA regulations and is used for clinical purposes. For additional information, please refer to http://education.IndyGeek/faq/WMM579i7 (This link if provided for information/ educational purposes only.) 04/07/2021 10:3 8 AM EDT Dea ESPINAL LAB BLOOD ORDERABLES Charu l Result Performing Organization Address [facility] Number [facility] [address] * HIV AB/AG (12/04/2019 2:49 PM EST) [facility] HIV AG/AB NONREACTIVE NR [facility] Comment: HIV-1 p24 Ag and/or HIV-1/HIV-2 Ab not detected. A test result that is nonreactive does not exclude the possibility of exposure to or infection with HIV-1 and/or HIV-2. Nonreactive results in this assay for individuals with prior exposure to HIV-1 and/or HIV-2 may be due to antigen and antibody levels that are below the limit of detection of this assay. The [employer] I Inspector HIV Ag/Ab Combo assay result and supplemental assay results should be interpreted in conjunction with the patient's clinical presentation, history and other laboratory results. If the results are inconsistent with clinical evidence, additional testing is suggested to confirm the result. 12/04/2019 2:49 PM EST Historical Provider MD HISTORICAL/NON ORDERABLE LABS Final Result Performing Organization Address [facility] Phone Number [facility] [address] from Last 3 Months or Most Recently Relevant to Health Maintenance Insurance 3 Care Teams Loading Dock Hand Relationship Specialty Start Date End Date Everardo Dixon MD [address] [place] [phone] PCP - General Internal Medicine 04/13/20 Levy Diallo MD [address] [place] [phone] Referring Physician Internal Medicine 07/02/24
--- OUTSIDE RECORDS SUMMARY | 2025-09-05 12:38 | XMS_ITS | Encounter Summary ---
Author Organization [employer] Address [address] [facility] [address] [place] [address] Care Team Providers Care Animal Maintenance Supervisor Name Role Phone Everardo Dixon MD Primary Care Prov ider Levy Diallo MD Unavailable [phone] Encounter Details Date Type Department Care Team (Late st Contact Info) Description 04/10/2025 Orders Only [facility] [address] [place] [address] Provider, MD Tonya Social History Tobacco Use [...] DUPLEX RIGHT Routine 04/09/2025 3:25 PM EDT documented in this encounter Results * Vascular US lower extremity arterial duplex right (04/09/2025 3:25 PM EDT) us Historical Provider CV VASCULAR PROCEDURES Fi nal Result documented in this encounter Visit Diagnoses Not on filedocumented in this encounter Additional Health Concerns Assessment Noted Time PHQ-9 Depression Total Score: 0 02/12/20 23 11:13 AM EDT documented as of this encounter Care Teams Animal Maintenance Supervisor Relationship Specialty Start Date End Date AlexanderEverardo Castano MD [address] [place] [phone] PCP - General Internal Medicine 04/13/20 Levy Diallo MD [address] [place] [phone] Referring Physician Internal Medicine 07/02/24 documented as of this encounter
--- OUTSIDE RECORDS SUMMARY | 2025-09-05 12:38 | XMS_ITS | Encounter Summary ---
Author Organization [employer] Address [address] [place] [address] Care Team Providers Care Plasterer Helper Name Role Phone Everardo Dixon MD Primary Care Prov ider Levy Diallo MD Unavailable [phone] Encounter Details Date Type Department Care Team (Latest Contact Info) Description 09/02/2025 Travel Social History Tobacco Use Types Packs/Day [...] documented as of this encounter Care Teams Plasterer Helper Relationship Specialty Start Date End Date Everardo Dixon MD [address] [place] [address] PCP - General Internal Medicine 04/13/20 Levy Diallo MD [address] [place] [address] Referring Physician Internal Medicine 07/02/24 documented as of this encounter
[2025-09-05 14:35] LABS: MANUAL DIFF FLAG NO
[2025-09-05 14:45] LABS: Hematocrit 38.6 % (37.0-47.0); Hemoglobin 12.9 g/dl (12.0-16.0); Imm Gran Abs Auto 0.01 X10*3/uL (0.00-0.03); Imm Gran Pct Auto 0.2 % (0.0-0.4); Lymphocytes Absolute Auto 1.6 X10*3/uL (1.2-4.9); Mean Corpuscular HGB Conc 33.4 g/dl (31.0-35.0); Mean Corpuscular Hemoglobin 30.2 pg (27.0-33.0); Mean Corpuscular Volume 90.4 fL (80.0-98.0); NRBC Abs Auto 0.000 X10*3/uL (0.0-0.012); NRBC Pct Auto 0.0 /100WBC (0.0-0.2); Platelet Count 289 X10*3/uL (160-400); Red Blood Count 4.27 X10*6/uL (4.20-5.50); White Blood Count 4.6 X10*3/uL (4.8-10.8)
[2025-09-05 15:09] LABS: Alanine Aminotransferase 29 U/L (0-31); Albumin Level 4.6 g/dL (3.5-5.0); Alkaline Phosphatase 86 U/L (39-117); Anion Gap 11 (12-20); Aspartate Amino Transferase 36 U/L (5-31); Blood Urea Nitrogen 10 mg/dL (9-16); Calcium 10.0 mg/dL (8.4-10.2); Carbon Dioxide 31 mmol/L (22-29); Chloride 106 mmol/L (96-108); Cholesterol 198 mg/dL (<200); Estimated Glomerular Filt Rate > 60; HDL Cholesterol 50 mg/dL (>40); Potassium 3.5 mmol/L (3.3-5.1); Sodium 144 mmol/L (135-145); Total Protein 7.8 g/dL (6.5-8.0); Triglycerides 91 mg/dL (<150)
== END 2025-09-05 10:29 | disposition home or self-care (01) ==
LOC: HO.CHCLDS 10:28
PROVIDERS: Visit Provider Internal Medicine
DX: I10 Essential (primary) hypertension (principal)
CPT/HCPCS: 36415; 80053; 80061; 85025

== ENCOUNTER 2025-10-18 17:56 | Outpatient (REF) | payer OTHER, SELFPAY ==
--- OUTSIDE RECORDS SUMMARY | 2025-04-09 06:15 | XMS_ITS | Continuity of Care Document ---
Author Organization [facility] Address [address] [place] [address] Phone Care Team Providers Care Benefits Coordinator Name Role Phone Alli CABRAL, RVT, ROSA, Tushar Unavailable U navailable Allergies, Adverse Reactions, Alerts Substance Reaction Status Criticality No Known Allergies Active No Inform ation Procedures Procedure Date Office/Outpt E&M Established 15 Mins- CT & [place] Duplex Scan-extrem Veins; Uni/ [...] MA Surgical Stockings CVR Reveal Thigh High 20-30 Duplex Scan-extrem Veins; Comp- CT & [place] Advance Directives Directive Yes / No Effective Date File Name No Information Encounters Encounter Description Practice Location Reason(s) For Visit Diagnoses Date Provider Providers Copied on Encounter Office/Outpt E&M Established 15 Mins- [place] & [place] [facility], [address] [place] [address] Dr Thomas [address] [place], [id number], [place] tel:[phone] [facility] Venous insufficienc y (chronic) (peripheral) Pruritus, unspecifiedE ssential (primary) hypertension 5 Alli CABRAL RVT, ROSA Finley. [address] [place] [address], [id number], [place]. tel:[phone] Referring Provider: Everardo Devi, [address] [place] [address], [address]. tel:[phone] [facility], [address] [place] [address] Dr Thomas 1000[place] row[place], [id number], [place] tel:[phone] [facility] Chronic venous hypertension (idiopathic) with other complication s of left lower extremity 5 Alli CABRAL RVT, RPVI Robert. [address] [place] [address], [place], [place], [id number], [place]. tel:[phone] Referring Provider: Everardo Devi, [address] [place] [address], [address]. tel:[phone] [facility], [address] [place] [address] Dr Thomas 1000[place] MD, [id number], [place] tel:[phone] [facility] Encounter for follow-up examination after completed treatment for conditions other than malignant neoplasmPain in left lower leg Feb-2 5 Alli CABRAL RVT, RPVI Robert. [address] [place] [address], [place], [place], [id number], [place]. tel:[phone] Referring Provider: Everardo Devi, [address] [place] [address], [address]. [phone] [facility], [address] [place] [address] Dr Thomas 1000SuMaco rowell [place], [id number], [place] tel:[phone] [facility] [facility] [place] Varicose veins of left lower extremity with other complication s Feb- 5 Alli CABRAL RVT, RPVI Robert. [address] [place] [address], [facility] [place], [id number], [place]. tel:[phone] Referring Provider: Everardo Devi[address], [address]. tel:[phone] Office/Outpt E&M Established 25 Mins- CT & [place] [facility], [address] [place] [address] Dr Thomas 1000SuMaco rowell MD, [id number], [place] tel:[phone] CVR - [facility] Chronic venous hypertension (idiopathic) with other complication s of bilateral lower extremityCra mp and spasmPruritu s, unspecifiedE ssential (primary) hypertension Feb-0 5 Alli CABRAL RVT, RPVI Robert. [address] [place] [address], [facility], [id number], [place]. tel:[phone] Referring Provider: Everardo Devi, [address] [place] [address], [address]. tel:[phone] [place] [facility], [address] [place] [address] Dr Thomas 1000SuMaco rowell MD, [id number], [place] tel:[phone] [facility] [place] Chronic venous hypertension (idiopathic) with other complication s of bilateral lower extremity Apr-0 5 Alli CABRAL RVT, RPVI Robert. [address] [place] [address], [place], [place], [id number], [place]. tel:[phone] Referring Provider: Everardo Devi, [address] [place] [address], [address]. tel:[phone] [facility], [address] [place] [address] Dr Thomas 1000[address] 1000[place], [id number], [place] tel:[phone] CVR - [facility] Encounter for follow-up examination after completed treatment for conditions other than malignant neVaricose veins of left lower extremity with pain 5 Alli CABRAL, RVT, RPFLORENCE Finley. [address] [place] [address], [place], [place], [id number], [place]. tel:[phone] Referring Provider: Everardo Devi, [address] [place] [address], [address]. tel:[phone] [facility], [address] [place] [address] [facility] [address] [address], [id number], [place] tel:[phone] CVR - [facility] Varicose veins of left lower extremity with other complication s 5 Melanie Yuen. [address] [place] [address], [place], [place], [id number], [place]. tel:[phone] Referring Provider: Levy Mantilla MD, [address], [place], [address]. tel:[phone] [facility], [address] [place] [address] [address] 1000[place], [id number], [place] tel:[phone] [facility] [place] Encounter for follow-up examination after completed treatment for conditions other than malignant neoplasmChro robert venous hypertension (idiopathic) with other complication s of right lower extremity 5 Radha Romeo. [address] [facility], [address], [place], [place], [id number], [place]. tel:[phone] Referring Provider: Levy Mantilla MD, [address], [place], [address]. tel:[phone] [facility], [address] [place] [address] Dr Thomas 1000[address] 1000[place], [id number], [place] tel:[phone] CVR - [facility] Encounter for follow-up examination after completed treatment for conditions other than malignant neoplasmVari cose veins of right lower extremity with pain Mar-0 5 Alli CABRAL, BHASKAR, ROSA Finley. [address] [facility], [address] [facility], [place], [place], [id number], [place]. tel:[phone] Referring Provider: Levy Mantilla MD, [address], [place], [address]. tel:[phone] [facility], [address] [place] [address] Dr Thomas 1000[address] 1000[place], [id number], [place] tel:[phone] CVR - [facility] Varicose veins of right lower extremity with other complication s Mar-0 5 Melanie Yeun. [address] [address], [place], [place], [id number], [place]. tel:[phone] Referring Provider: Levy Mantilla MD, [address], [place], [address]. tel:[phone] [facility], [address] [place] [address] Dr Thomas 1000Suite [place], [id number], [place] tel:[phone] CVR - [facility] Chronic venous hypertension (idiopathic) with inflammation of right lower extremity Dec- 5 Alli CABRAL RVT, ROSA iFnley. [address] [facility], [place] [address], [place], [place], [id number], [place]. tel:[phone] Referring Provider: Levy Mantilla MD, [address], [place], [address]. tel:[phone] [facility], [address] [place] [address] Dr Thomas 1000[address] 1000[place], [id number], [place] tel:[phone] CVR - [facility] No Information 5 Alli CABRAL RVT, RPVI Robert. [address] [place] [address], [place], [place], [id number], [place]. tel:[phone] Offic/outpt E&m Estab 5 Min Trial- Telemedicine CT & [facility], [address] [place] [address] Dr Thomas 1000SuMaco rowell MD, [id number], [place] tel:[phone] [facility] (idiopathic) with other complication s of bilateral lower extremityCra mp and spasmPruritu s, unspecifiedE ssential (primary) hypertension 5 Alli CABRAL RVT, ROSA Finley. [address] [place] [address], [facility] [place], [id number], [place]. tel:[phone] Referring Provider: Everardo Devi, [address] [place] [address], [address]. tel:[phone] Offic Cons New/estab Mod 40 Az- CT & [facility], [address] [place] [address] Dr Thomas 1000Suite [place], [id number], [place] tel:[phone] [facility] Chronic venous hypertension (idiopathic) with other complication s of bilateral lower extremityEss ential (primary) hypertension Venous insufficienc y (chronic) (peripheral) Pruritus, unspecifiedC ramp and spasmLocaliz ed edema 4 Alli CABRAL RVT, RPVI Robert. [address] [place] [address], [facility] [place], [id number], [place]. tel:[phone] Referring Provider: Levy Mantilla MD, [address], [place], [address]. tel:[phone] [place] [facility], [address] [place] [address] Dr Thomas 1000Suite [place]hon [place], [id number], [place] tel:[phone] [facility] Varicose veins of bilateral lower extremities with pain 4 Alli CABRAL RVT, RPVI Robert. [address] [place] [address], [address], [facility] [place], [id number], [place]. tel:[phone] Referring Provider: Levy Mantilla MD, [address], [place], [address]. tel:[phone] Family History Family Member Type Diagnosis Age At Onset No Information Payers Payer name Insurance type Covered libertarian ID Authorlucya marguerite(s) [facility] CI [id number] Social History Type Description Quantity Date Captured [...] (150.00 lbs) 25.8 0 kg/m eter (2) 136/84 mm[Hg] Chief Complaint And Reason For Visit No Information Reason For Referral Reason For Referral No Information Plan Of Treatment Date Type Action Status Goal Diet education completed Goal Diet education completed Goal Diet education [...] Body mass index (BMI) 25.0-25.9, adult) ordered History Of Present Illness Encounter Date Complaint History Of Prese nt Illness No Information Functional Status Date Functional Assessmen t No Information Instructions Date Instruction Additional Infor mation Diet education Related to Body mass index (BMI) 25.0-25.9, adult Giving Encouragement to exercise Related to Body mass index (BMI) 25.0-25.9, adult Compression stocking usage as conservative measure Related to Venous insufficiency (chronic) (peripheral) Patient education booklet given Related to Venous insufficiency (chronic) (peripheral) Lifestyle education Related to B arabella mass index (BMI) 25.0-25.9, adult Diet education Related to Body mass index [...]
--- OUTSIDE RECORDS SUMMARY | 2025-10-18 15:00 | XMS_ITS | Encounter Summary ---
Author Organization [employer] Address [address] [place] [address] Care Team Providers Care Vice President Of Operations Name Role Phone Everardo Dixno MD Primary Care Prov ider Levy Diallo MD Unavailable [phone] Reason for Visit * Reason Comments Difficulty Urinating UTI Encounter Details Date Type Department Care Team [facility] Contact [facility] Description 10/18/2025 3:00 PM EST Office Visit [facility] [address] [place] [address] [phone] Name, MD Osbaldo [address] [place] [address] Urinary tract infection with hematuria, site unspecified (Primary Dx); Primary hypertension Social History Tobacco Use Types [...] Sign Reading Time Taken Comments Blood Pressure 148/89 10/18/2025 3:03 PM EST Pulse 69 10/18/2025 2:48 PM EST Temperature 36.3 C (97.3 F) 10/18/2025 2:48 PM EST Respiratory Rate 18 10/18/2025 2:48 PM EST Oxygen Saturation 100% 10/18/2025 2:48 PM EST Inhaled Oxygen Concentration - - Weight 67.2 kg (148 lb 3.2 oz) 10/18/2025 2:48 P M EST Height - - Body Mass Index 27.11 09/04/2025 10:49 AM EDT documented in this encounter Progress Notes * Osbaldo Jackman MD - 10/18/2025 3:00 PM EST Subjective Patient ID: Zo Sawant is a 50 y.o. female who presents for Difficulty Urinating and UTI. UTI This is a new problem. The current episode started in the past 7 days. The problem has been gradually worsening since onset. Review of Systems Constitutional: Negative for chills and fever. Respiratory: Negative for cough. Cardiovascular: Negative for chest pain. Genitourinary: Positive for dysuria and urgency. She has suprapubic discomfort Foul smelling urine The patient is and monogamous No vaginal discharge Objective Vitals: 10/18/25 1448 10/18/25 1503 BP: (!) 183/98 (!) 148/89 BP Location: Left arm Patient Position: Sitting BP Cuff Size: Adult Pulse: 69 Resp: 18 Temp: 97.3 ??F (36.3 ??C) TempSrc: Temporal SpO2: 100% Weight: 148 lb 3.2 oz (67.2 kg) Physical Exam Constitutional: General: She is not in acute distress. Appearance: She is not toxic-appearing. Cardiovascular: Rate and Rhythm: Normal rate and regular rhythm. Pulmonary: Effort: Pulmonary effort is normal. No respiratory distress. Assessment/Plan Diagnoses and all orders for this visit: Urinary tract infection with hematuria, site unspecified Comments: Patient has symptoms of cystitis for the past 3 days, she is recommended to drink plenty water, 3-day course of Bactrim, evaluation with urine culture. Further recommendation based on the results andthe response to the antibiotic prescribed today. Orders: - POCT Urinalysis - Urinalysis, Complete, with Reflex to Culture; Future - sulfamethoxazole-trimethoprim (Bactrim DS) 800-160 MG tablet; Take 1 tablet by mouth 2 times daily for 3 days. Primary hypertension Comments: Repeat blood pressure is better. She is on lisinopril/hydrochlorothiazide and she checks her blood pressure at home daily. Her blood pressure is usually normal at home. I did not recommend any med changes. documented in this encounter Plan of Treatment Not on file documented as of this encounter Procedures Procedure Name Priority Date/Time Associated Diagnosis Comments POCT URINALYSIS DIPSTICK Routine 10/18/2025 2:58 PM EST Urinary tract infection with hematuria, site unspecified URINALYSIS, COMPLETE, WITH REFLEX TO CULTURE Routine 10/18/2025 12:00 AM EST Urinary tract infection with hematuria, site unspecified documented in this encounter Results * (ABNORMAL) POCT Urinalysis (10/18/2025 2:58 PM EST) Color, UA Yellow Clarity, UA Clear Glucose, UA Negative Bilirubin, UA Negative Ketones, UA Negative Spec Grav, UA 1.015 Blood, UA Positive(A) Negative, None Detected Comment:moderate pH, UA 6.5 Protein, UA Negative Urobilinogen, UA 0.2 Leukocytes, UA Moderate(A) Negative, Rare, Trace, 1+ (17), 2+ (35), 3+ (70), Trace (15) Nitrite, UA Negative Negative, None Detected Appearance, UA yellow QC Media Lot # [id number] Lot# Expiration Date Urine (Urine, Random) 10/18/2025 2:58 PM EST Osbaldotaniya Jackman MD POINT OF CARE TEST ENTER/EDIT OR DERABLES Final Result * (ABNORMAL) Urinalysis, Complete, with Reflex to Culture (10/18/2025 12:00 AM EST) Color Urine Yellow [facility] Appearance Urine Clear [facility] PH 6.5 5.0 - 9.0 [facility] Glucose Urine UA Negative Negative mg/dL [facility] Urine Blood Moderate (2+)(A) Negative [facility] Specific [place] - Urine 1.010 1.005 - 1.025 [facility] Urine Protein Negative Neg-Trace mg/dL [facility] Urine Ketones Negative Negative mg/dL [facility] Nitrite Urine Negative Negative [facility] Leukocyte Esterase Urine Moderate (2+)(A) Negative [facility] RBC Urine 11-20(A) 0 - 2 /HPF [facility] Urine WBC >50(A) 0 - 5 /HPF [facility] Urine Squamous Epithelial Cell 3-5 0 - 2 /HPF [facility] Urine Bacteria 1+ None Seen [facility] Hyaline Casts, Urine 0-2 0 - 2 /LPF [facility] Urine 10/18/2025 10/18/2025 Narrative [facility] - 10/18/2025 6:38 PM EST Urine, Clean Catch us Osbaldo Name LAB URINE ORDERABLES Final Resul t [facility] [address] [place] [address] [phone] documented in this encounter Visit Diagnoses Diagnosis Urinary tract infection with hematuria, site unspecified- Primary Primary hypertension Unspecified essential hypertension documented in this encounter Additional Health Concerns Assessment Noted Time PHQ-9 Depression Total Score: 0 04/18/20 25 11:09 AM EDT documented as of this encounter Care Teams Vice President Of Operations Relationship Specialty Start Date End Date Everardo Dixon MD [address] [place] [phone] PCP - General Internal Medicine 04/13/20 Levy Diallo MD [address] [place] [address] Referring Physician Internal Medicine 07/02/24 documented as of this encounter
[2025-10-18 18:32] LABS: Appearance Urine Clear; Glucose Urine UA Negative (Negative); PH 6.5 (5.0-9.0); Specific Gravity - Urine 1.010 (1.005-1.025); UMIC TRIGGER UACC YES
[2025-10-18 18:36] LABS: UACC Culture Trigger YES
--- OUTSIDE RECORDS SUMMARY | 2025-10-18 20:03 | XMS_ITS | Encounter Summary ---
Author Organization [employer] Address [address] [facility] 7t [place] [address] Care Team Providers Care Manager Risk Name Role Phone Everardo Dixon MD Primary Care Prov ider Levy Diallo MD Unavailable [phone] Encounter Details Date Type Department Care Team (Late st Contact Info) Description 04/10/2025 Orders Only [facility] [address] [place] [address] Provider, MD Tonya Social History Tobacco Use [...] as of this encounter Care Teams Manager Risk Relationship Specialty Start Date End Date AlexanderEverardo Castano MD [address] [place] [phone] PCP - General Internal Medicine 04/13/20 Levy Diallo MD [address] [place] [phone] Referring Physician Internal Medicine 07/02/24 documented as of this encounter
--- OUTSIDE RECORDS SUMMARY | 2025-10-18 20:03 | XMS_ITS | Encounter Summary ---
Author Organization [employer] Address [address] [place] [address] Care Team Providers Care Tool And Die Engineer Name Role Phone Everardo Dixon MD Primary Care Prov ider Levy Diallo MD Unavailable [phone] Reason for Visit * Reason Onset Date Comments Nurse Triage 10/18/2025 Encounter Details Date Type Department Care Team ([facility] st Contact Info) Description 10/18/[address] [facility] [address] [place] [address] Everardo Dixon MD [address] [place] [address] Nurse Triage Social History Tobacco Use Types Packs/Day Years [...] encounter Miscellaneous Notes * Telephone Encounter - Cynthia Tam RN - 10/18/2025 2:01 PM EST Telephone call to pt via [employer] #[id number]. Pt reports urination pain (when finishing urinating) x 3 days, pelvic pain, odor, increased frequency/urgency at night. States she has history of UTI and sxs feel similar to previous UTI. Denies fever, flank pain. No sick on site appts in [place], advised herto come to [facility] today or tomorrow for provider evaluation, gave hrs of operation. Pt verbalized understanding, states she plans to come today. Explained [facility] is open on first come, first serve basis. Pt verbalized understanding, no further questions. Protocol Used: Urination Pain - Female (Adult) Protocol-Based Disposition: See in Office or Video Visit Today Video visit offer not recorded Positive Triage Question: * Painful urination AND EITHER frequency or urgency * All higher-acuity triage questions were negative. Care Advice Discussed: * Reassurance and Education - Possible Urine Infection * Drink Extra Fluids * Reasons To Call Back - Fever or back pain occurs - You become worse * Telephone Encounter - Tess Hoang - 10/18/2025 1:46 PM EST Symptom: Urination Pain Outcome: Schedule an urgent appointment (within 1 hour) or talk to a nurse or provider soon Reason: Severe pain now The caller accepted this outcome. SINHALA SPEAKER Pcp dR. MARTINEZ documented in this encounter Plan of Treatment Not on file documented as of this encounter Visit Diagnoses Not on filedocumented in this encounter Additional Health Concerns Assessment Noted Time PHQ-9 Depression Total Score: 0 04/18/20 25 11:09 AM EDT documented as of this encounter Care Teams Tool And Die Engineer Relationship Specialty Start Date End Date Everardo Dixon MD [address] [place] [phone] PCP - General Internal Medicine 04/13/20 Levy Diallo MD [address] [place] [phone] Referring Physician Internal Medicine 07/02/24 documented as of this encounter
--- OUTSIDE RECORDS SUMMARY | 2025-10-18 20:03 | XMS_ITS | Encounter Summary ---
Author Organization [employer] Address [address] 7t [place] [address] Care Team Providers Care Newsagent Name Role Phone Everardo Dixon MD Primary Care Prov ider Levy Diallo MD Unavailable [phone] Encounter Details Date Type Department Care Team (Latest Contact Info) Description 10/18/2025 Travel Social History Tobacco Use Types Packs/Day [...] documented as of this encounter Care Teams Newsagent Relationship Specialty Start Date End Date Everardo Dixon MD [address] [place] [address] PCP - General Internal Medicine 04/13/20 Levy Diallo MD [address] [place] [address] Referring Physician Internal Medicine 07/02/24 documented as of this encounter
--- OUTSIDE RECORDS SUMMARY | 2025-10-18 20:03 | XMS_ITS | Encounter Summary ---
Author Organization [employer] Address [address] [facility] 7t [place] [address] Care Team Providers Care Digester Capper Name Role Phone Everardo Dixon MD Primary Care Prov ider Levy Diallo MD Unavailable [phone] Encounter Details Date Type Department Care Team (Late st Contact Info) Description 02/13/2025 Orders Only [facility] [address] [place] [address] Provider, MD Tonya Social History Tobacco Use [...] documented as of this encounter Care Teams Digester Capper Relationship Specialty Start Date End Date AlexanderEverardo Castano MD [address] [place] [address] PCP - General Internal Medicine 04/13/20 Levy Diallo MD [address] [place] [address] Referring Physician Internal Medicine 07/02/24 documented as of this encounter
--- OUTSIDE RECORDS SUMMARY | 2025-10-18 20:03 | XMS_ITS | Clinical Summary ---
Author Organization [employer] Address [address] 7t [place] [address] Care Team Providers Care Dock Associate Name Role Phone Everardo Dixon MD Primary Care Prov ider Levy Diallo MD Unavailable [phone] Allergies No known active allergies Medications Blood [...] Once per day. 1 kit 04/18/2025 Active sulfamethoxazole- trimethoprim (Bactrim DS) 800-160 MG tabletIndications :Urinary tract infection with hematuria, site unspecified Take 1 tablet by mouth 2 times daily for 3 days. 6 tablet 10/18/2025 10/21/20 25 Active Active Problems Problem Noted Date [...] Encounters Date Type Department Care Team Description 10/18/2025 3:00 PM EST Office Visit [facility] [address] [place] [address] Name, MD Osbaldo Urinary tract infection with hematuria, site unspecified (Primary Dx); Primary hypertension 10/18/2025 Travel 10/18/2025 Telephone [facility] [address] [place] [address] Everardo Dixon MD Nurse Triage 09/04/2025 10:30 AM EDT Office Visit [facility] [address] [place] [address] Everardo Dixon MD Primary hypertension (Primary Dx); [...] oz) 10/18/2025 2:48 P M EST Height 157.5 cm (5' 2 ) 09/04/2025 10:49 AM EDT Body Mass Index 27.11 09/04/2025 10:49 AM EDT Plan of Treatment [...] 2025 01/02/2022, 04/09/2021 SDOH Screening 12/12/2025 12/12/2024 Alcohol/Substance Use Screening 01/16/2026 01/16/2025 Cervical Cancer Screening 04/07/2026 HPV/Cotest 04/07/2026 04/07/2021 Pap Smear 04/07/2026 04/07/2021 Depression Screening 04/18/2026 04/18/2025, 04/18/20 Disability Screening 09/02/2026 09/02/2025 Tobacco Screening 10/18/2026 10/18/2025 Mammogram 10/20/2026 10/20/2024, 12/2022, 10/09/2022, Additional history exists Lipid Panel 09/05/2030 09/05/2025, 12/15, 09/16/2023, Additional history exists Colonoscopy 06/28/2032 06/28/2022 Colorectal [...] Urinary tract infection with hematuria, site unspecified LIPID PANEL, STANDARD Routine 09/05/2025 10:30 AM EDT Primary hypertension COMPREHENSIVE METABOLIC PANEL Routine 09/05/2025 10:30 AM EDT Primary hypertension CBC WITH AUTO DIFFERENTIAL Routine 09/05/2025 10:30 AM EDT Primary hypertension BI MAMMOGRAM SCREENING TOMOSYNTHESIS BILATERAL [...] Recently Relevant to Health Maintenance Results * (ABNORMAL) POCT Urinalysis (10/18/2025 2:58 [...] Media Lot # [id number] Lot# Expiration Date , Urine (Urine, Random) 10/18/2025 2:58 PM EST us Osbaldo Name POINT OF CARE TEST ENTER/EDIT OR DERABLES Final Result * (ABNORMAL) Urinalysis, Complete, with Reflex to Culture (10/18/2025 12:00 AM EST) Color Urine Yellow [facility] Appearance Urine Clear [facility] PH 6.5 5.0 - 9.0 [facility] Glucose Urine UA Negative Negative mg/dL [facility] Urine Blood Moderate (2+)(A) Negative [facility] Specific [place] - Urine 1.010 1.005 - 1.025 [facility] Urine Protein Negative Neg-Trace mg/dL [facility] Urine Ketones Negative Negative mg/dL [facility] Nitrite Urine Negative Negative [facility] Leukocyte Esterase Urine Moderate (2+)(A) Negative [facility] RBC Urine 11-20(A) 0 - 2 /HPF [facility] Urine WBC >50(A) 0 - 5 /HPF [facility] Urine Squamous Epithelial Cell 3-5 0 - 2 /HPF [facility] Urine Bacteria 1+ None Seen [facility] Hyaline Casts, Urine 0-2 0 - 2 /LPF [facility] Urine 10/18/2025 10/18/2025 Narrative [facility] - 10/18/2025 6:38 PM EST Urine, Clean Catch us Osbaldo Name LAB URINE ORDERABLES Final Resul t [facility] [address] [place] [address] [phone] * (ABNORMAL) CBC auto differential (09/05/2025 10:30 AM EDT) White Blood Count 4.6(L) 4.8 - 10.8 X10*3/uL [facility] Red Blood Count 4.27 4.20 - 5.50 X10*6/uL [facility] Hemoglobin 12.9 12.0 - 16.0 g/dl [facility] Hematocrit 38.6 37.0 - 47.0 % [facility] Mean Corpuscular Volume 90.4 80.0 - 98.0 fL [facility] Mean Corpuscular Hemoglobin 30.2 27.0 - 33.0 pg [facility] Mean Corpuscular HGB Conc 33.4 31.0 - 35.0 g/dl [facility] Red Cell Distribution Width 12.5 11.0 - 16.0 % [facility] Platelet Count 289 160 - 400 X10*3/uL [facility] Mean Platelet Volume 9.7 9.4 - 12.3 fL [facility] Neutrophils Percent Auto 54.0 45 - 73 % [facility] Imm Gran Pct Auto 0.2 0.0 - 0.4 % [facility] Lymphocytes Percent Auto 35.2 20 - 40 % [facility] Monocytes Percent Auto 8.6 2 - 11 % [facility] Eosinophils Percent Auto 1.1 0 - 4 % [facility] Basophils Percent Auto 0.9 0 - 2 % [facility] NRBC Pct Auto 0.0 0.0 - 0.2 /100WBC [facility] Neutrophils Absolute Auto 2.5 2.0 - 8.3 x10*3/uL [facility] Imm Gran Abs Auto 0.01 0.00 - 0.03 X10*3/uL [facility] Lymphocytes Absolute Auto 1.6 1.2 - 4.9 X10*3/uL [facility] Monocytes Absolute Auto 0.4 0.1 - 1.2 X10*3/uL [facility] Eosinophils Absolute Auto 0.1 0.0 - 0.4 X10*3/uL [facility] Basophils Absolute Auto 0.0 0.0 - 0.2 X10*3/uL [facility] NRBC Abs Auto 0.000 0.0 - 0.012 X10*3/uL [facility] Blood Venous blood specimen / Unknown 09/05/2025 10:30 AM EDT 09/05/2025 2:32 PM EDT us Everardo Devi MD LAB BLOOD ORDERABL ES Final Result [facility] [address] [place] [address] [phone] * (ABNORMAL) Lipid Panel, Standard (09/05/2025 10:30 AM EDT) Triglycerides 91 <150 mg/dL [facility] Comment:Desirable Triglyceri de: less than 150 mg/dLBorderline High Triglyceride 150-199 mg/dLHigh Triglyceride: 200-499 mg/dLVery High Triglyceride: greater than or equal to 5OO mg/dL Cholesterol 198 <200 mg/dL [facility] Comment:Desirable Cholestero l: less than 200 mg/dLBorderline High Cholesterol: 200-239 mg/dLHigh Cholesterol: greater than 239 mg/dL LDL Cholesterol Calculated 130(H) <100 mg/dL [facility] Comment:Desirable LDL: less than 100 mg/dLNear Optimal/Above Optimal LDL: 110- 129 mg/dLBorderline High LDL: 130-159 mg/dLHigh LDL: 160-189 mg/dLVery High LDL: greater than or equal to 190 mg/dL HDL Cholesterol 50 >40 mg/dL [facility] Comment:Desirable HDL: great er than 40 mg/dL Note: This HDL assay may give artificially low results in patients with liver disease. Blood Venous blood specimen / Unknown 09/05/2025 10:30 AM EDT 09/05/2025 2:25 PM EDT us Everardo Devi MD LAB BLOOD ORDERABL ES Final Result [facility] [address] [place] [address] [phone] * (ABNORMAL) Comprehensive Metabolic Panel (09/05/2025 10:30 AM EDT) Sodium 144 135 - 145 mmol/L [facility] Potassium 3.5 3.3 - 5.1 mmol/L [facility] Chloride 106 96 - 108 mmol/L [facility] Carbon Dioxide 31(H) 22 - 29 mmol/L [facility] Anion Gap 11(L) 12 - 20 [facility] Urea Nitrogen (BUN) 10 9 - 16 mg/dL [facility] Creatinine, Serum 0.73 0.5 - 1.4 mg/dL [facility] Estimated Glomerular Filt Rate >60 [facility] Comment:Chronic Kidney Disea se: Estimated GFR < 60 mL/min/1.40f4Hftcdt Kidney Disease: Estimated GFR < 15 mL/min/1.73m2 Glucose 100 60 - 115 mg/dL [facility] Calcium 10.0 8.4 - 10.2 mg/dL [facility] Bilirubin, Total 1.0 0.0 - 1.0 mg/dL [facility] Aspartate Amino Transferase 36(H) 5 - 31 U/L [facility] Alanine Aminotransferase 29 0 - 31 U/L [facility] Total Protein 7.8 6.5 - 8.0 g/dL [facility] Albumin Level 4.6 3.5 - 5.0 g/dL [facility] Alkaline Phosphatase 86 39 - 117 U/L [facility] Blood Venous blood specimen / Unknown 09/05/2025 10:30 AM EDT 09/05/2025 2:25 PM EDT us Everardo Devi MD LAB BLOOD ORDERABL ES Final Result Performing Organization Address City/State/[facility] Co de Phone Number [facility] [address] [place] [phone] * BI Mammogram Screening Tomosynthesis Bilateral (10/20/2024 7:58 AM EST) Anatomical Region Laterality Modality Breast Bilateral Mammography 10/20/2024 7:58 AM EST Narrative 10/25/2024 1:58 PM EST [facility] [address] [place] [address] Mammography Report Signed Patient: Zo Sawant MR#: [id number] : 1975 Acct:[id number] Age/Sex: 49 / F ADM Date: 10/20/24 Loc: [facility] Attending Dr: Everardo Devi MD Ordering Physician: Everardo Dixon MD Res ults: 1Negative Date of Service: 10/20/24 Follow Up: 1 Year From Orig inal Mammogram Procedure(s): MM tomosynthesis screening BI Accession Number(s): [id number] cc: Everardo Dixon MD EXAMINATION: MM SCREENING [...] their next mammogram. Electronically signed by: Claudette Blacwkell DO 10/25/2024 01:56 PM [facility] [place] [place] Dictated By: Claudette Blackwell DO Signed By: <Electronically signed by Claudette Blackwell DO in OV> 10/25/24 1356 DD/ 0758 TD/TT: 10/20/24 0813 [employer] Laboratory Manager: Procedure Note Donotuseinterpreter, Image - 10/26/2024 [place] [facility] [address] [place] [address] Mammography Report Signed Patient: Humza Sawant#: [id number] : 1975Acct:[id number] Age/Sex: 49 / FADM Date: 10/20/24 Loc: HO.MAMMO Attending Dr: Everardo Devi MD Ordering Physician: Everardo Dixon ults: 1Negative Date of Service: 10/20/24Follow Up: 1 Year From Orig inal Mammogram Procedure(s): MM tomosynthesis screening BI Accession Number(s): [id number] cc: Everardo Dixon MD EXAMINATION: MM SCREENING [...] by: Claudette Blackwell DO 10/25/2024 01:56 PM [facility] [place] [place] Dictated By: Claudette Blackwell DO Signed By: <Electronically signed by Claudette Blackwell DO in OV> 10/25/24 1356 DD/ 0758 TD/TT: 10/20/24 0813 [employer] Laboratory Manager: Everardo Devi MD [facility] [place] PROCEDURES Edited Result - Final * Hepatitis C Antibody with Reflex to HCV, RNA, Quantitative, Real-Time PCR (03/24/2023 9:54 AM EDT) Hepatitis C Antibody NON-REACT STEVEN NON-REACT STEVEN Money Mover Index 0.18 <1.00 [facility] [employer] Comment: HCV antibody was non-reactive. There is no laboratory evidence of HCV infection. In most cases, no further action is required. However, if recent HCV exposure is suspected, a test for HCV RNA (test code 82915) is suggested. For additional information please refer to http://education.Missingames/faq/TRU20j2 (This link is being provided for informational/ educational purposes only.) Blood Venous blood specimen / Unknown 03/24/2023 9:54 AM EDT 03/24/2023 9:55 AM EDT Narrative [facility] - 03/25/2023 2:47 AM EDT FASTING:YES FASTING: YES Everardo Devi MD LAB BLOOD ORDERABL ES Final Result [address], [place] [address] [facility] [address] [place] [address] * Hm Colonoscopy (06/28/2022) Colonoscopy Normal Normal Narrative Allie Lund - 06/28/2022 Colonoscopy order added, results scanned in emt intermediate Historical Provider HEALTH MAINTENANCE Final Result * THINPREP PAP [...] along with historic and current clinical information. Ham Stripper : SEE COMMENT [facility] Comment: DMM, CT(ASCP) CT screening location: [address] [address] Interpretation/R esult: Negative for intraepithelial lesion or [...] Final Result [facility] [address] [place] [address], * HPV mRNA E6/E7 (04/07/2021 10:38 AM EDT) HPV nRNA E6/E7 Not Detected Not Detected [facility] Comment: Methodology: Basket Grader-Mediated Amplification This assay detects E6/E7 viral messenger RNA (mRNA) from 14 high-risk HPV types (16,18,31,33,35,39,45,51,52,56,58,59,66,68). The analytical performance characteristics of this assay have been determined by [employer]. The modifications have not been cleared or approved by the FDA. This assay has been validated pursuant to the CLIA regulations and is used for clinical purposes. For additional information, please refer to http://education.Missingames/faq/YAQ495j8 (This link if provided for information/ educational purposes only.) 04/07/2021 10:3 8 AM EDT Dea ESPINAL LAB BLOOD ORDERABLES Charu l Result Performing Organization Address [facility] de Phone Number [facility] [address] * HIV AB/AG (12/04/2019 2:49 PM EST) Pathologist [facility] HIV AG/AB NONREACTIVE NR [facility] [...] of detection of this assay. The [place] Repaire[employer] Helper Hand HIV Ag/Ab Combo assay result and supplemental assay results should be interpreted in conjunction with the patient's clinical presentation, history and other laboratory results. If the results are inconsistent with clinical evidence, additional testing is suggested to confirm the result. 12/04/2019 2:49 PM EST Historical Provider MD HISTORICAL/NON ORDERABLE LABS Final Result Performing Organization Address [facility] de Phone Number [facility] [address] from Last 3 Months or Most Recently Relevant to Health Maintenance [place] [place] [address] [address] [place] [address] Care Teams Dock Associate Relationship Specialty Start Date End Date Everardo Dixon MD [address] [place] [address] PCP - General Internal Medicine 04/13/20 Levy Diallo MD [address] [place] [address] Referring Physician Internal Medicine 07/02/24
== END 2025-10-18 17:57 | disposition home or self-care (01) ==
LOC: HO.HHCLNP 17:56
PROVIDERS: Visit Provider Internal Medicine Geriatric Medicine
DX: R39.9 Unspecified symptoms and signs involving the genitourinary system (principal)
CPT/HCPCS: 81001; 87086; 87088; 87186

== ENCOUNTER 2025-10-26 07:57 | Outpatient (REF) | payer MEDICAID, SELFPAY ==
--- OUTSIDE RECORDS SUMMARY | 2025-10-23 14:15 | XMS_ITS | Encounter Summary ---
Author Organization [employer] Address [address] [facility] 7t [place] [address] Care Team Providers Care Epidemiology Investigator Name Role Phone Everardo Dixon MD Primary Care Prov ider Levy Diallo MD Unavailable [phone] Encounter Details Date Type Department Care Team ([facility] st Contact Info) Description 10/23/2025 2:15 PM EST Telemedicine [facility] [address] [place], [place] [phone] Everardo Dixon MD [address] [place] [address] Primary hypertension Social History Tobacco Use Types [...] Sign Reading Time Taken Comments Blood Pressure 128/88 10/23/2025 1:56 PM EST Pulse - - Temperature - - Respiratory Rate - - Oxygen Saturation - - Inhaled Oxygen Concentration - - Weight - - Height - - Body Mass Index - - documented in this encounter Plan of Treatment Not on file documented as of this encounter Visit Diagnoses Diagnosis Primary hypertension Unspecified essential hypertension documented in this encounter Additional Health Concerns Assessment Noted Time PHQ-9 Depression Total Score: 0 04/18/20 25 11:09 AM EDT documented as of this encounter Care Teams Epidemiology Investigator Relationship Specialty Start Date End Date Everardo Dixon MD [address] [place] [address] PCP - General Internal Medicine 04/13/20 Levy Diallo MD [address] [place] [address] Referring Physician Internal Medicine 07/02/24 documented as of this encounter
--- OUTSIDE RECORDS SUMMARY | 2025-10-26 08:03 | XMS_ITS | Clinical Summary ---
Author Organization [facility] Address [address] [place] [address] Phone Care Team Providers Care Interventional Physiatrist Name Role Phone Levy Lema MD Primary Care Provi lola Allergies No known active allergies Medical History Medical History Date Comments Hypertension Social History Tobacco Use Types Packs/Day Years Used Date Smoking Tobacco: Never Smokeless Tobacco: Never Tobacco Cessation:Counseling Given: Not Answered Comments Unknown Sex and Gender Information Value Date Recorded Sex Assigned at Not on file Legal Sex Female 9:00 AM EST Gender Identity Not on file Sexual Orientation Not on file Last Filed Vital Signs Vital Sign Reading [...] 2025 01/02/2022, 04/09/2021 Influenza Vaccine (#1) 2025 2, 08/25/2021, 10/02/2020, Additional history exists Cholesterol Screening [...] patient's age to complete this topic Insurance [facility] Care Teams Interventional Physiatrist Relationship Specialty Start Date End Date Levy Lema MD [address] [place] [address] [place] [address] PCP - General Internal Medicine 03/09/21
--- OUTSIDE RECORDS SUMMARY | 2025-10-26 08:03 | XMS_ITS | Encounter Summary ---
Author Organization [employer] Address [address] [facility] 7t [place] [address] Care Team Providers Care Nursing Home Director Name Role Phone Everardo Dixon MD Primary Care Prov ider Levy Diallo MD Unavailable [phone] Reason for Visit * Reason Onset Date Comments chart prep 10/22/2025 Encounter Details Date Type Department Care Team ([facility] Contact Info) Description 10/22/2025 Telephone [facility] [address] [place], [place] [phone] Everardo Dixon MD [address] [place] [address] chart prep Social History Tobacco Use Types [...] Telephone Encounter - Joceline Mantilla [place] - 10/22/2025 4:05 PM EST Chart Prep Labs: done Images: done Referrals: complete Vaccines due: Covid, PCV20, Hep B, and Zoster Screenings: not applicable Overdue care gaps: Not applicable documented in this encounter Plan of Treatment Not on file documented as of this encounter Visit Diagnoses Not on filedocumented in this encounter Additional Health Concerns Assessment Noted Time PHQ-9 Depression Total Score: 0 04/18/20 25 11:09 AM EDT documented as of this encounter Care Teams Nursing Home Director Relationship Specialty Start Date End Date Everardo Dixon MD [address] [place] [address] PCP - General Internal Medicine 04/13/20 Levy Diallo MD [address] [place] [address] Referring Physician Internal Medicine 07/02/24 documented as of this encounter
--- OUTSIDE RECORDS SUMMARY | 2025-10-26 08:03 | XMS_ITS | Encounter Summary ---
Author Organization [employer] Address [address] [facility] 7t [place] [address] Care Team Providers Care Medical Delivery Driver Name Role Phone Everardo Dixon MD Primary Care Prov ider Levy Diallo MD Unavailable [phone] Encounter Details Date Type Department Care Team (Late st Contact Info) Description 02/13/2025 Orders Only [facility] [address] [place] [address] Provider, MD Tonya Social History Tobacco Use [...] documented as of this encounter Care Teams Medical Delivery Driver Relationship Specialty Start Date End Date AlexanderEverardo Castano MD [address] [place] [address] PCP - General Internal Medicine 04/13/20 Levy Diallo MD [address] [place] [address] Referring Physician Internal Medicine 07/02/24 documented as of this encounter
--- OUTSIDE RECORDS SUMMARY | 2025-10-26 08:03 | XMS_ITS | Encounter Summary ---
Author Organization [employer] Address [address] [facility] 7t [place] [address] Care Team Providers Care Price Analyst Name Role Phone Everardo Dixon MD Primary Care Prov ider Levy Diallo MD Unavailable [phone] Encounter Details Date Type Department Care Team (Late st Contact Info) Description 04/10/2025 Orders Only [facility] [address] [place] [address] Provider, MD Tonya Social History Tobacco Use [...] documented as of this encounter Care Teams Price Analyst Relationship Specialty Start Date End Date AlexanderEverardo Castano MD [address] [place] [address] PCP - General Internal Medicine 04/13/20 Levy Diallo MD [address] [place] [address] Referring Physician Internal Medicine 07/02/24 documented as of this encounter
--- OUTSIDE RECORDS SUMMARY | 2025-10-26 08:03 | XMS_ITS | Encounter Summary ---
Author Organization [employer] Address [address] [facility] [address] 7[address] [place] [address] Care Team Providers Care Break Up Worker Name Role Phone Everardo Dixon MD Primary Care Prov ider Levy Diallo MD Unavailable [phone] Encounter Details Date Type Department Care Team ([facility] st Contact Info) Description 10/21/2025 Results Follow-Up [facility] [address] [place], [place] [phone] Name, MD Osbaldo [address] [place] [address] Culture, Urine, Routine Social History Tobacco Use Types Packs/Day Years [...] documented as of this encounter Care Teams Break Up Worker Relationship Specialty Start Date End Date Everardo Dixon MD [address] [place] [address] PCP - General Internal Medicine 04/13/20 Levy Diallo MD [address] [place] [address] Referring Physician Internal Medicine 07/02/24 documented as of this encounter
--- OUTSIDE RECORDS SUMMARY | 2025-10-26 08:03 | XMS_ITS | Clinical Summary ---
Author Organization [employer] Address [address] [facility] [address] [place] [address] Care Team Providers Care Welder Operator Name Role Phone Everardo Dixon MD Primary Care Prov ider Levy Diallo MD Unavailable [phone] Allergies No known active allergies Medications Blood Pressure kit Active estradiol (Climara) 0.05 MG/24HR Place 1 patch on the skin 1 (one) time per week. 4 patch 11 07/02/20 24 Active Blood Pressure kit 1 kit Once per day. 1 kit 04/18/20 25 Active lisinopril-hydro CHLOROthiazide 20-25 MG tabletIndication s:Primary hypertension Take 1 tablet by mouth Once per day. 90 tablet 3 10/23/20 25 026 Active lisinopril-hydro CHLOROthiazide 20-25 MG tabletIndication s:Primary hypertension Take 1 tablet by mouth Once per day. 90 tablet 3 01/17/20 25 025 Discontinued(Re order (will not trigger notification to Pharmacy)) sulfamethoxazole -trimethoprim (Bactrim DS) 800-160 MG tabletIndication s:Urinary tract infection with hematuria, site unspecified Take 1 tablet by mouth 2 times daily for 3 days. 6 tablet 10/18/20 25 025 Active Problems Problem Noted Date Diagnosed Date [...] Encounters Date Type Department Care Team Description 10/23/2025 2:15 PM EST [facility]medicine [facility] [address] [place] [address] Everardo Dixon MD Primary hypertension 10/23/2025 Travel 10/22/2025 Telephone [facility] [address] [place] [address] Everardo Dixon MD chart prep 10/21/2025 Results Follow-Up [facility] [address] [place] [phone] Osbaldo Jackman MD Culture, Urine, Routine 10/18/2025 3:00 PM EST Office Visit [facility] [address] [place] [address] Osbaldo Jackman MD Urinary tract infection with hematuria, site unspecified (Primary Dx); Primary hypertension 10/18/2025 Orders Only [facility] [address] [place] [address] Name, MD Osbaldo 10/18/2025 Travel 10/18/2025 Telephone [facility] [address] [facility] [place] [address] Everardo Dixon MD Nurse Triage 09/04/2025 10:30 AM EDT Office Visit [facility] [address] [place], [place] [phone] Everardo Dixon MD Primary hypertension (Primary Dx); [...] Pressure 128/88 10/23/2025 1:56 PM EST Pulse 69 10/18/2025 2:48 PM [...] Urinary tract infection with hematuria, site unspecified CULTURE, URINE, ROUTINE Routine 10/18/2025 12:00 AM EST LIPID PANEL, STANDARD Routine 09/05/2025 10:30 AM [...] Random) 10/18/2025 2:58 PM EST us Osbaldo Jackman MD POINT OF CARE TEST ENTER/EDIT OR DERABLES Final Result * (ABNORMAL) Urinalysis, Complete, with Reflex to Culture (10/18/2025 12:00 AM EST) Color Urine Yellow [facility] Appearance Urine Clear [facility] PH 6.5 5.0 - 9.0 [facility] Glucose Urine UA Negative Negative mg/dL [facility] Urine Blood Moderate (2+)(A) Negative [facility] Specific [place] - Urine 1.010 1.005 - 1.025 [facility] Urine Protein Negative Neg-Trace mg/dL [facility] Urine Ketones Negative Negative mg/dL [facility] Nitrite Urine Negative Negative [facility] Leukocyte Esterase Urine Moderate (2+)(A) Negative [facility] RBC Urine 11-20(A) 0 - 2 /HPF [facility] Urine WBC >50(A) 0 - 5 /HPF [facility] Urine Squamous Epithelial Cell 3-5 0 - 2 /HPF [facility] Urine Bacteria 1+ None Seen [facility] Hyaline Casts, Urine 0-2 0 - 2 /LPF [facility] Urine 10/18/2025 10/18/2025 Narrative [facility] - 10/18/2025 6:38 PM EST Urine, Clean Catch us Osbaldo Jackman MD LAB URINE ORDERABLES Final Resul t [facility] [address] [place] [phone] * Culture, Urine, Routine (10/18/2025 12:00 AM EST) Urine Urine specimen obtained by clean catch procedure / Unknown 10/18/2025 10/18/2025 Comment:[facility] Narrative [facility] - 10/20/2025 7:48 AM EST Citrobacter koseri Quant 50,000 to 100,000 cfu/mL Citrobacter koseri: Cefazolin 2(S) Citrobacter koseri: Cefepime <=0.12(S) Citrobacter koseri: Ceftriaxone <=0.25(S) Citrobacter koseri: Ciprofloxacin <=0.06(S) Citrobacter koseri: Gentamicin <=1(S) Citrobacter koseri: Nitrofurantoin <=16(S) Citrobacter koseri: Trimethoprim/Sulfamethoxazole <=20(S) Specimen Source: Urine clean catch us Osbaldo Name LAB MICROBIOLOGY - GENERAL ORDER TRAM Final Result Performing Organization Address [facility] de Phone Number [facility] [address] [place] [phone] * (ABNORMAL) CBC auto differential (09/05/2025 10:30 AM EDT) White Blood Count 4.6(L) 4.8 - 10.8 X10*3/uL [facility] Red Blood Count 4.27 4.20 - 5.50 X10*6/uL [facility] Hemoglobin 12.9 12.0 - 16.0 g/dl [facility] Hematocrit 38.6 37.0 - 47.0 % [facility] Mean Corpuscular Volume 90.4 80.0 - 98.0 fL [facility] Mean Corpuscular Hemoglobin 30.2 27.0 - 33.0 pg [facility] Mean Corpuscular HGB Conc 33.4 31.0 - 35.0 g/dl [facility] Red Cell Distribution Width 12.5 11.0 - 16.0 % [facility] Platelet Count 289 160 - 400 X10*3/uL [facility] Mean Platelet Volume 9.7 9.4 - 12.3 fL [facility] Neutrophils Percent Auto 54.0 45 - 73 % [facility] Imm Gran Pct Auto 0.2 0.0 - 0.4 % [facility] Lymphocytes Percent Auto 35.2 20 - 40 % [facility] Monocytes Percent Auto 8.6 2 - 11 % [facility] Eosinophils Percent Auto 1.1 0 - 4 % [facility] Basophils Percent Auto 0.9 0 - 2 % [facility] NRBC Pct Auto 0.0 0.0 - 0.2 /100WBC [facility] Neutrophils Absolute Auto 2.5 2.0 - 8.3 x10*3/uL [facility] Imm Gran Abs Auto 0.01 0.00 - 0.03 X10*3/uL [facility] Lymphocytes Absolute Auto 1.6 1.2 - 4.9 X10*3/uL [facility] Monocytes Absolute Auto 0.4 0.1 - 1.2 X10*3/uL [facility] Eosinophils Absolute Auto 0.1 0.0 - 0.4 X10*3/uL [facility] Basophils Absolute Auto 0.0 0.0 - 0.2 X10*3/uL [facility] NRBC Abs Auto 0.000 0.0 - 0.012 X10*3/uL [facility] Blood Venous blood specimen / Unknown 09/05/2025 10:30 AM EDT 09/05/2025 2:32 PM EDT us Everardo Devi MD LAB BLOOD ORDERABL ES Final Result [facility] [address] [place] [phone] * (ABNORMAL) Lipid Panel, Standard (09/05/2025 10:30 AM EDT) Triglycerides 91 <150 mg/dL [facility] Comment:Desirable Triglyceri de: less than 150 mg/dLBorderline High Triglyceride 150-199 mg/dLHigh Triglyceride: 200-499 mg/dLVery High Triglyceride: greater than or equal to 5OO mg/dL Cholesterol 198 <200 mg/dL [facility] Comment:Desirable Cholestero l: less than 200 mg/dLBorderline High Cholesterol: 200-239 mg/dLHigh Cholesterol: greater than 239 mg/dL LDL Cholesterol Calculated 130(H) <100 mg/dL [facility] Comment:Desirable LDL: less than 100 mg/dLNear Optimal/Above Optimal LDL: 110- 129 mg/dLBorderline High LDL: 130-159 mg/dLHigh LDL: 160-189 mg/dLVery High LDL: greater than or equal to 190 mg/dL HDL Cholesterol 50 >40 mg/dL [facility] Comment:Desirable HDL: great er than 40 mg/dL Note: This HDL assay may give artificially low results in patients with liver disease. Blood Venous blood specimen / Unknown 09/05/2025 10:30 AM EDT 09/05/2025 2:25 PM EDT us Everardo Devi MD LAB BLOOD ORDERABL ES Final Result [facility] [address] [place] [phone] * (ABNORMAL) Comprehensive Metabolic Panel (09/05/2025 10:30 AM EDT) Sodium 144 135 - 145 mmol/L [facility] Potassium 3.5 3.3 - 5.1 mmol/L [facility] Chloride 106 96 - 108 mmol/L [facility] Carbon Dioxide 31(H) 22 - 29 mmol/L [facility] Anion Gap 11(L) 12 - 20 [facility] Urea Nitrogen (BUN) 10 9 - 16 mg/dL [facility] Creatinine, Serum 0.73 0.5 - 1.4 mg/dL [facility] Estimated Glomerular Filt Rate >60 [facility] Comment:Chronic Kidney Disea se: Estimated GFR < 60 mL/min/1.32k7Drllgp Kidney Disease: Estimated GFR < 15 mL/min/1.73m2 Glucose 100 60 - 115 mg/dL [facility] Calcium 10.0 8.4 - 10.2 mg/dL [facility] Bilirubin, Total 1.0 0.0 - 1.0 mg/dL [facility] Aspartate Amino Transferase 36(H) 5 - 31 U/L [facility] Alanine Aminotransferase 29 0 - 31 U/L [facility] Total Protein 7.8 6.5 - 8.0 g/dL [facility] Albumin Level 4.6 3.5 - 5.0 g/dL [facility] Alkaline Phosphatase 86 39 - 117 U/L [facility] Blood Venous blood specimen / Unknown 09/05/2025 10:30 AM EDT 09/05/2025 2:25 PM EDT us Everardo Devi MD LAB BLOOD ORDERABL ES Final Result [facility] [address] [place] [phone] * BI Mammogram Screening Tomosynthesis Bilateral (10/20/2024 7:58 AM EST) Anatomical Region Laterality Modality Breast Bilateral Mammography 10/20/2024 7:58 AM EST Narrative 10/25/2024 1:58 PM EST [facility] [address] [place] [address] [place] [phone] Mammography Report Signed Patient: Zo Sawant MR#: [id number] : 1975 Acct:[id number] Age/Sex: 49 / F ADM Date: 10/20/24 Loc: [facility] Attending Dr: Everardo Devi MD Ordering Physician: Everardo Dixon MD Res ults: 1Negative Date of Service: 10/20/24 Follow Up: 1 Year From Orig inal Mammogram Procedure(s): MM tomosynthesis screening BI Accession Number(s): [id number] cc: Everardo Dixon MD EXAMINATION: MM SCREENING [...] by: Claudette Blackwell DO 10/25/2024 01:56 PM [facility] Dictated By: Claudette Blackwell DO Signed By: <Electronically signed by Claudette Blackwell DO in OV> 10/25/24 1356 DD/ 0758 TD/TT: 10/20/24 0813 Workers Compensation Legal Secretary: Procedure Note Donotuseinterpreter, Image - 10/26/2024 [facility] [address] [place] [address] Mammography Report Signed Patient: Humza Sawant#: [id number] : 1975Acct:[id number] Age/Sex: 49 / FADM Date: 10/20/24 Loc: HO.MAMMO Attending Dr: Everardo Devi MD Ordering Physician: Everardo Dixon ults: 1Negative Date of Service: 10/20/24Follow Up: 1 Year From Orig inal Mammogram Procedure(s): MM tomosynthesis screening BI Accession Number(s): [id number] cc: Everardo Dixon MD EXAMINATION: MM SCREENING [...] by: Claudette Blackwell DO 10/25/2024 01:56 PM [facility] Dictated By: Claudette Blackwell DO Signed By: <Electronically signed by Claudette Blackwell DO in OV> 10/25/24 1356 DD/ 0758 TD/TT: 10/20/24 0813 Workers Compensation Legal Secretary: Everardo Devi MD [facility] PROCEDURES Edited Result - Final * Hepatitis C Antibody with Reflex to HCV, RNA, Quantitative, Real-Time PCR (03/24/2023 9:54 AM EDT) Hepatitis C Antibody NON-REACT STEVEN NON-REACT STEVEN [employer] Index 0.18 <1.00 [facility] [employer] Comment: HCV antibody was non-reactive. There is no laboratory evidence of HCV infection. In most cases, no further action is required. However, if recent HCV exposure is suspected, a test for HCV RNA (test code 76512) is suggested. For additional information please refer to http://education.StreetOwl/faq/PUD40e6 (This link is being provided for informational/ educational purposes only.) Blood Venous blood specimen / Unknown 03/24/2023 9:54 AM EDT 03/24/2023 9:55 AM EDT Narrative [facility] - 03/25/2023 2:47 AM EDT FASTING:YES FASTING: YES Everardo Devi MD LAB BLOOD ORDERABL ES Final Result [facility] [address], [place] [phone] [facility] [address] [place] [phone] * Hm Colonoscopy (06/28/2022) Colonoscopy Normal Normal Narrative Allie Lund - 06/28/2022 Colonoscopy order added, results scanned in multimedia educational specialist Historical Provider HEALTH MAINTENANCE Final Result * [...] along with historic and current clinical information. Census Clerk : SEE COMMENT [facility] Comment: DMM, CT(ASCP) CT screening location: [address] [address] Interpretation/R esult: Negative for intraepithelial lesion or malignancy. [facility] LMP: NONE GIVEN [facility] Prev. BX: NONE GIVEN [facility] Prev. PAP: NONE GIVEN [facility] SOURCE: None given [facility] Statement Of Adequacy: SEE COMMENT [facility] Comment: Satisfactory for evaluation. Endocervical/transformation zone component present. Age and/or menstrual status not provided 04/07/2021 10:3 8 AM EDT Dea Hurley CNM LAB PATHOLOGY ORDERABLES Final Result Performing Organization Address City/[facility]/ZIP Co de Phone Number [facility] [address] * HPV mRNA E6/E7 (04/07/2021 10:38 AM EDT) Pathologist [facility] HPV nRNA E6/E7 Not Detected Not Detected [facility] Comment: Methodology: Show Design Supervisor-Mediated Amplification This assay detects E6/E7 viral messenger RNA (mRNA) from 14 high-risk HPV types (16,18,31,33,35,39,45,51,52,56,58,59,66,68). The analytical performance characteristics of this assay have been determined by [facility]. The modifications have not been cleared or approved by the FDA. This assay has been validated pursuant to the CLIA regulations and is used for clinical purposes. For additional information, please refer to http://education.StreetOwl/faq/GGA874d7 (This link if provided for information/ educational purposes only.) 04/07/2021 10:3 8 AM EDT Dea ESPINAL LAB BLOOD ORDERABLES Charu l Result Performing Organization Address City/[facility] Co de Phone Number [facility] [address] * HIV AB/AG (12/04/2019 2:49 PM EST) [facility] HIV AG/AB NONREACTIVE NR [facility] [...] of detection of this assay. The [employer] HIV Ag/Ab Combo assay result and supplemental assay results should be interpreted in conjunction with the patient's clinical presentation, history and other laboratory results. If the results are inconsistent with clinical evidence, additional testing is suggested to confirm the result. 12/04/2019 2:49 PM EST Historical Provider MD HISTORICAL/NON ORDERABLE LABS Final Result Performing Organization Address City/[facility] Co de Phone Number [facility] [address] from Last 3 Months or Most Recently Relevant to Health Maintenance Insurance [address] [address] 3 Care Teams Welder Operator Relationship Specialty Start Date End Date Everardo Dixon MD [address] [place] [phone] PCP - General Internal Medicine 04/13/20 Levy Diallo MD [address] [place] [phone] Referring Physician Internal Medicine 07/02/24
--- OUTSIDE RECORDS SUMMARY | 2025-10-26 08:03 | XMS_ITS | Encounter Summary ---
Author Organization [facility] [employer] Address [address] [place] [address] Care Team Providers Care Water Hauler Name Role Phone Everardo Dixon MD Primary Care Prov ider Levy Diallo MD Unavailable [phone] Encounter Details Date Type Department Care Team (Latest Contact Info) Description 10/23/2025 Travel Social History Tobacco Use Types Packs/Day [...] documented as of this encounter Care Teams Water Hauler Relationship Specialty Start Date End Date Everardo Dixon MD [address] [place] [address] PCP - General Internal Medicine 04/13/20 Levy Diallo MD [address] [place] [address] Referring Physician Internal Medicine 07/02/24 documented as of this encounter
== END 2025-10-26 07:58 | disposition home or self-care (01) ==
LOC: HO.MAMMO 07:57
PROVIDERS: PCP Internal Medicine; Visit Provider Internal Medicine
DX: Z12.31 Encounter for screening mammogram for malignant neoplasm of breast (principal)
CPT/HCPCS: 77063; 77067

== ENCOUNTER → 2025-10-26 08:00 | Outpatient (BNV) | payer MEDICAID, SELFPAY | PROVIDERS: PCP Internal Medicine; Visit Provider Internal Medicine | DX: Z12.31 Encounter for screening mammogram for malignant neoplasm of breast (principal) | CPT/HCPCS: 77063; 77067 ==